=== PATIENT | female | born 1940 ===

== ENCOUNTER 2016-09-17 17:01 | Inpatient (IN) | payer MEDICARE, OTHER ==
[2016-09-17 17:01] VITALS: BMI 22.6
--- NOTE | 2016-09-17 17:19 | C.PDOC ---
History Of Present Illness The patient is a 76yo female, PMHx of stroke, [facility] ED from her [facility] for evaluation due to complaints of back pain from the patient for the past two days. Per pt's son, the patient fell two days ago after which she was complaining of back pain and was instructed by her PCP Dr. Rony Ramirez to come to the ED. Currently, the patient denies any back pain but is complaining of left lower jaw pain and swelling with associated difficulty in opening her mouth and chewing. Pt also reports some pain to her left eye and reports these are new symptoms. She currently denies any other medical complaints. PCP: Dr. Rony Ramirez Time Seen by Provider: 09/17/16 17:15 Chief Complaint (Nursing): Back Pain History Per: Patient, Atm Technician (Erin Bower) History/Exam Limitations: no limitations Onset/Duration Of Symptoms: Days Current Symptoms Are (Timing): Still Present Additional History Per: Shelter Past Medical History Reviewed: Historical Data, Nursing Documentation, Vital Signs Vital Signs: Last Vital Signs Temp 98 F 09/20/16 07:52 Pulse 81 09/20/16 12:34 Resp 20 09/20/16 07:52 BP 122/80 09/20/16 07:52 Pulse Ox 96 09/20/16 12:34 - Medical History PMH: Arthritis (NECK DJD), HTN Denies: Chronic Kidney Disease - [facility] Procedures FIBER-OPTIC BRONCHOSCOPY (07/16/13) OTHER LOBECTOMY OF LUNG (07/16/13) SIMP EXC LYMPH STRUC NEC (07/16/13) Family History: States: Unknown Family Hx - Social History Hx Tobacco Use: No Hx Alcohol Use: No Hx Substance Use: No - Immunization History Hx Tetanus Toxoid Vaccination: No Hx Influenza Vaccination: No Hx Pneumococcal Vaccination: Yes Review Of Systems Eyes: Positive for: Pain (left eye pain) ENT: Positive for: Other (Left sided jaw pain, swelling, difficulty in opening and closing mouth as well as chewing) Respiratory: Negative for: Cough, Shortness of Breath Gastrointestinal: Negative for: Nausea, Vomiting, Abdominal Pain, Diarrhea Genitourinary: Negative for: Dysuria Musculoskeletal: Negative for: Neck Pain Skin: Negative for: Rash Neurological: Negative for: Weakness Physical Exam - Physical Exam Skin: Normal Color Cardiovascular: Rhythm Regular Respiratory: Normal Breath Sounds Gastrointestinal/Abdominal: Normal Exam, Soft, No Tenderness Back: No CVA Tenderness Neurological/Psych: Normal Motor (able to move all extremities) Other Neurological Findings: Facial Palsy (Left sided facial droop) ED Course And Treatment - Laboratory Results Result Diagrams: 09/20/16 14:06 09/20/16 14:06 - CT Scan/US CT Head Other Rad Studies (CT/US): Read By Radiologist, Radiology Report Reviewed CT/US Interpretation: EXAM: CT Head Without Intravenous Contrast. CLINICAL HISTORY: 76 years old, female; Pain; Headache; Headache not specified; Additional info: R/O bleed. TECHNIQUE: Axial computed tomography images of the head/brain without intravenous contrast. All CT scans at. this facility use one or more dose reduction techniques, viz.: automated exposure control; ma/ kV. adjustment per patient size (including targeted exams where dose is matched to indication; i.e. head);. or iterative reconstruction technique. Coronal and sagittal reformatted images were created and reviewed. COMPARISON: CT - HEAD W/O CONTRAST 01/10/2015 10:42:23 AM. FINDINGS: Brain: There is marked diffuse cerebral atrophy present, consistent with this patient's age. There is. moderate diffuse heterogeneity of the white matter attenuation, consistent with chronic white matter. ischemic changes. The brain is otherwise unremarkable. Normal dorantes-white matter differentiation is. present, without acute hemorrhage, or mass. Ventricles: Unremarkable. No ventriculomegaly. Bones/joints: Unremarkable. No acute fracture. Soft tissues: Unremarkable. Sinuses: Unremarkable as visualized, except for minimal fluid in the posterior left ethmoid air cells. No acute sinusitis. Mastoid air cells: Unremarkable as visualized. No mastoid effusion. IMPRESSION: Age-related atrophy and chronic white matter ischemic changes, with no evidence of an acute. intracranial abnormality. CT Maxillofacial/Sinuses Other Rad Studies (CT/US): Read By Radiologist, Radiology Report Reviewed CT/US Interpretation: EXAM: CT Maxillofacial Without Intravenous Contrast. CLINICAL HISTORY: 76 years old, female; Pain; Jaw pain; Additional info: Jaw pain, diff opening mouth. TECHNIQUE: Axial computed tomography images of the face without intravenous contrast. All CT scans at this. facility use one or more dose reduction techniques, viz.: automated exposure control; ma/kV. adjustment per patient size (including targeted exams where dose is matched to indication; i.e. head);. or iterative reconstruction technique. Coronal and sagittal reformatted images were created and reviewed. COMPARISON: CT - HEAD W /O CONTRAST 01/10/2015 10:42:23 AM. FINDINGS: Bones/joints: There is moderate bilateral TMJ arthropathy present, no TMJ dislocation. No. mandibular lesions. No acute fracture. Soft tissues: Unremarkable. Orbits: The orbits are normal. Sinuses: There is minimal fluid in one of the posterior left ethmoids. Dental : There is extensive periodontal disease seen with a number of missing teeth and significant. dental caries. Brain: The visualized brain shows marked cerebral atrophy. IMPRESSION: Extensive periodontal disease and dental caries. Moderate bilateral TMJ arthropathy. No fracture or. dislocation seen. Mild sinus disease as described. Medical Decision Making Medical Decision Making: Time: 1720 Impression: 76yo female, complaining of left jaw pain and swelling; hx of stroke Differentials: Palsy, stroke, trauma, infection Plan: -- CT Head -- CT Maxillofacial -- Labs -- CXR -- Tylenol 975 mg PO Disposition - Disposition Disposition: HOSPITALIZED Disposition Time: 17:25 Condition: GUARDED - Clinical Impression Clinical Impression: Chronic jaw pain - Scribe Statement The provider has reviewed the documentation as recorded by the Erin Bower Provider Attestation: All medical record entries made by the Erin were at my direction and personally dictated by me. I have reviewed the chart and agree that the record accurately reflects my personal performance of the history, physical exam, medical decision making, and the department course for this patient. I have also personally directed, reviewed, and agree with the discharge instructions and disposition.
[2016-09-17 19:12] LABS: BASO # 0.1 K/uL (0.0-0.2); BASO % 0.5 % (0.0-2.0); EOS # 0.3 K/uL (0.0-0.7); EOS % 2.3 % (0.0-4.0); HEMATOCRIT 42.5 % (34.0-47.0); LYMPH # 3.9 K/uL (1.0-4.3); LYMPH % 32.4 % (20.0-40.0); MEAN CELL VOLUME 82.2 fL (81.0-99.0); MEAN CORPUSCULAR HEMOGLOBIN 27.4 pg (27.0-31.0); MEAN CORPUSCULAR HGB CONC 33.4 g/dL (33.0-37.0); MEAN PLATELET VOLUME 7.6 fL (7.2-11.7); MONO # 0.9 K/uL (0.0-0.8); MONO % 7.3 % (0.0-10.0); NRBC % 0.1 % (0.0-2.0); RED CELL DISTRIBUTION WIDTH 16.1 % (11.5-14.5)
[2016-09-17 19:20] LABS: CHLORIDE 99 mmol/L (98-107); SODIUM 139 mmol/L (132-148)
[2016-09-17 19:21] LABS: POTASSIUM 4.2 mmol/L (3.6-5.2)
[2016-09-17 19:23] LABS: AST/SGOT 24 U/L (14-36); BILIRUBIN,TOTAL 0.5 mg/dL (0.2-1.3); BLOOD UREA NITROGEN 9 mg/dL (7-17); CARBON DIOXIDE 25 mmol/L (22-30); GFR AFRICAN-AMERICAN > 60; TOTAL PROTEIN 8.1 g/dL (6.3-8.3)
[2016-09-17 19:24] LABS: ALKALINE PHOSPHATASE 113 U/L (38-126); ALT/SGPT 27 U/L (9-52); CALCIUM 10.1 mg/dl (8.6-10.4); GLUCOSE,RANDOM 96 mg/dL (65-105)
--- NOTE | 2016-09-18 09:51 | CP.PCM.HP ---
Past Patient History - Infectious Disease Hx of Infectious Diseases: None - Past Medical History & Family History Past Medical History?: Yes - Past Social History Smoking Status: Never Smoked - CARDIAC Hx Hypertension: Yes - PULMONARY Hx Respiratory Disorders: Yes Hx Lung Cancer: Yes - NEUROLOGICAL Hx Neurological Disorder: Yes HX Cerebrovascular Accident: Yes - HEENT Hx HEENT Problems: Yes Hx Cataracts: Yes (EXT RIGHT EYE IOL) - RENAL Hx Chronic Kidney Disease: No - ENDOCRINE/METABOLIC Hx Endocrine Disorders: No - HEMATOLOGICAL/ONCOLOGICAL Hx Blood Disorders: Yes Hx Cancer: Yes (lung) - INTEGUMENTARY Hx Dermatological Problems: No - MUSCULOSKELETAL/RHEUMATOLOGICAL Hx Arthritis: Yes (NECK DJD) Hx Falls: Yes (hx. of fall from home) - GASTROINTESTINAL Hx Gastrointestinal Disorders: Yes Hx Gastroesophageal Reflux: Yes - GENITOURINARY/GYNECOLOGICAL Hx Genitourinary Disorders: Yes Hx Urinary Tract Infection: Yes - PSYCHIATRIC Hx Substance Use: No - SURGICAL HISTORY Hx Surgeries: Yes Hx Cataract Extraction: Yes (RIGHT IOL) Other/Comment: LUNG BX - ANESTHESIA Hx Anesthesia: Yes Hx Anesthesia Reactions: Yes Hx Malignant Hyperthermia: No Meds Allergies/Adverse Reactions: Allergies Allergy/AdvReac Type Severity Reaction Status Date / Time No Known Allergies Allergy Verified 09/17/16 17:08 Physical Exam - Constitutional Appears: Well - Head Exam Head Exam: ATRAUMATIC, NORMAL INSPECTION, NORMOCEPHALIC - Eye Exam Eye Exam: EOMI, Normal appearance, PERRL - ENT Exam ENT Exam: Mucous Membranes Moist, Normal Exam - Neck Exam Neck exam: Positive for: Normal Inspection - Respiratory Exam Respiratory Exam: Decreased Breath Sounds - Cardiovascular Exam Cardiovascular Exam: REGULAR RHYTHM, +S1, +S2 - GI/Abdominal Exam GI & Abdominal Exam: Diminished Bowel Sounds, Soft - Rectal Exam Rectal Exam: Deferred Results - Vital Signs Recent Vital Signs: Last Vital Signs Temp 97.5 F L 09/17/16 23:28 Pulse 68 09/17/16 23:28 Resp 20 09/17/16 23:28 BP 137/78 09/17/16 23:28 Pulse Ox 98 09/17/16 23:28 - Labs Result Diagrams: 09/17/16 19:08 09/17/16 19:08 Labs: Laboratory Results - last 24 hr 09/17/16 09/17/16 19:08 19:08 WBC 12.0 H RBC 5.16 Hgb 14.2 Hct 42.5 MCV 82.2 D MCH 27.4 MCHC 33.4 RDW 16.1 H Plt Count 388 MPV 7.6 Neut % (Auto) 57.5 Lymph % (Auto) 32.4 Ramsey % (Auto) 7.3 Eos % (Auto) 2.3 Baso % (Auto) 0.5 Neut # 6.9 Lymph # 3.9 Ramsey # 0.9 H Eos # 0.3 Baso # 0.1 Sodium 139 Potassium 4.2 Chloride 99 Carbon Dioxide 25 Anion Gap 19 BUN 9 Creatinine 0.4 L Est GFR ( Amer) > 60 Est GFR (Non-Af Amer) > 60 Random Glucose 96 Calcium 10.1 Total Bilirubin 0.5 AST 24 ALT 27 Alkaline Phosphatase 113 Total Protein 8.1 Albumin 4.1 Globulin 4.1 H Albumin/Globulin Ratio 1.0
[2016-09-18] MEDS ORDERED: Amoxicillin-Clav 875-125 mg Tab PO SCH (10:00)
[2016-09-18] MEDS ORDERED: Pneumococcal 23-Valent Vaccine IM ONE (10:00)
[2016-09-18] MEDS: guaiFENesin DM 200 mg-20 mg/10 ml UD PO PRN (10:29)
[2016-09-18] MEDS: Multiple Vitamins Tab PO SCH (10:29)
--- NOTE | 2016-09-18 10:43 | RAD ---
PROCEDURE: CHEST RADIOGRAPH, 1 VIEW HISTORY: SOB COMPARISON: Comparison is made to 02/25/2016 FINDINGS: LUNGS: Complete whiteout of the left lung noted since the previous exam. There is mediastinal shift to the left. PLEURA: No evidence of right pleural effusion. CARDIOVASCULAR: Mediastinal and cardiac shift to the left is noted. Cannot evaluate the cardiac size. OSSEOUS STRUCTURES: No significant abnormalities. VISUALIZED UPPER ABDOMEN: Normal. OTHER FINDINGS: None. IMPRESSION: Complete whiteout of the left chest could be due to complete collapse of the left lung. Findings in new compared to the previous exam. Further assessment by CT is suggested.
--- NOTE | 2016-09-18 11:14 | CT ---
PROCEDURE: CT HEAD WITHOUT CONTRAST. HISTORY: R/O Bleed COMPARISON: Comparison is made to 02/25/2016 TECHNIQUE: Axial computed tomography images were obtained through the head/brain without intravenous contrast. Radiation dose: Total exam DLP = 602.5 mGy-cm. This CT exam was performed using one or more of the following dose reduction techniques: Automated exposure control, adjustment of the mA and/or kV according to patient size, and/or use of iterative reconstruction technique. FINDINGS: HEMORRHAGE: No intracranial hemorrhage. BRAIN: No mass effect or edema. No atrophy or chronic microvascular ischemic changes. VENTRICLES: Unremarkable. No hydrocephalus. CALVARIUM: Unremarkable. PARANASAL SINUSES: Unremarkable as visualized. No significant inflammatory changes. MASTOID AIR CELLS: Unremarkable as visualized. No inflammatory changes. OTHER FINDINGS: None. IMPRESSION: No evidence of acute intracranial hemorrhage intracranial collection mass effect or midline shift. Atrophy and white matter changes. Preliminary report support was submitted by [facility].
--- NOTE | 2016-09-18 11:35 | CT ---
PROCEDURE: CT MAXILLOFACIAL BONES WITHOUT CONTRAST HISTORY: jaw pain, diff opening mouth COMPARISON: None TECHNIQUE: Contiguous axial CT images of the maxillofacial bones were obtained. Coronal and sagittal reformats were generated. Radiation dose: Total exam DLP = 672.04 mGy-cm. This CT exam was performed using one or more of the following dose reduction techniques: Automated exposure control, adjustment of the mA and/or kV according to patient size, and/or use of iterative reconstruction technique. FINDINGS: NASAL BONES: Unremarkable. ORBITS: Unremarkable. PARANASAL SINUSES/ MASTOIDS: Mild mucosal thickening seen in the ethmoid and sphenoid sinuses. MAXILLA: Unremarkable. MANDIBLE/ TEMPOROMANDIBULAR JOINTS: Arthritic degenerative changes at the TMJ bilaterally SKULL BASE: Unremarkable. TEMPORAL BONES: Middle ears and mastoid grossly unremarkable. OTHER FINDINGS: Extensive periodontal disease and dental cares IMPRESSION: No evidence of acute fracture or dislocation. Arthritic degenerative changes at the TMJ. Preliminary report was submitted by [facility]
[2016-09-19] MEDS ORDERED: Amoxicillin-Clav 875-125 mg Tab PO SCH (10:00)
--- NOTE | 2016-09-19 12:57 | CP.PCM.PN ---
Subjective - Date & Time of Evaluation Date of Evaluation: 09/19/16 Time of Evaluation: 08:40 - Subjective Subjective: clinically same Objective - Vital Signs/Intake and Output Vital Signs (last 24 hours): Temp Pulse Resp BP Pulse Ox 98.3 F 86 20 122/73 96 09/19/16 01:00 09/19/16 01:00 09/19/16 01:00 09/19/16 01:00 09/19/16 01:00 Intake and Output: 09/19/16 09/19/16 06:59 18:59 Intake Total 100 100 Balance 100 100 - Medications Medications: Current Medications Acetaminophen (Tylenol 325mg Tab) 650 mg PO Q4 PRN PRN Reason: Pain, Mild (1-3) Last Admin: 09/18/16 17:26 Dose: 650 mg Amoxicillin/Clavulanate Potassium (Augmentin 875 Mg-125 Mg Tab) 1 tab PO QAM [facility] Carvedilol (Coreg) 6.25 mg PO BID [facility] Last Admin: 09/18/16 17:26 Dose: 6.25 mg Docusate Sodium (Colace) 200 mg PO HS [facility] Last Admin: 09/18/16 21:48 Dose: Not Given Guaifenesin/Dextromethorphan (Robitussin Dm) 10 ml PO Q12 PRN PRN Reason: Cough Last Admin: 09/18/16 10:29 Dose: 10 ml Heparin Sodium (Porcine) (Heparin) 5,000 units SC Q8 [facility] Last Admin: 09/19/16 06:35 Dose: 5,000 units Multivitamins (Hexavitamin) 1 tab PO DAILY [facility] Last Admin: 09/18/16 10:29 Dose: 1 tab - Labs Labs: 09/17/16 19:08 09/17/16 19:08 - Constitutional Appears: Well - Head Exam Head Exam: ATRAUMATIC, NORMAL INSPECTION, NORMOCEPHALIC - Eye Exam Eye Exam: EOMI, Normal appearance, PERRL Pupil Exam: NORMAL ACCOMODATION, PERRL - ENT Exam ENT Exam: Mucous Membranes Moist, Normal Exam - Neck Exam Neck Exam: Full ROM, Normal Inspection. absent: Lymphadenopathy - Respiratory Exam Respiratory Exam: Decreased Breath Sounds - Cardiovascular Exam Cardiovascular Exam: REGULAR RHYTHM, +S1, +S2 - GI/Abdominal Exam GI & Abdominal Exam: Soft, Diminished Bowel Sounds - Rectal Exam Rectal Exam: Deferred Assessment and Plan - Assessment and Plan (Free Text) Plan: Continue same pain medicine and discussed with by HEENT unable to figure out the cause of the lobule but nothing much on on the bed on the pharyngeal area Continue same Continue pain medicine Medication as ordered Awaiting consult by Dr. Aj aviles
[2016-09-19] MEDS: Multiple Vitamins Tab PO SCH (13:32)
--- NOTE | 2016-09-19 15:22 | CON ---
DATE: 09/19/2016 CHIEF COMPLAINT: Right-sided jaw pain and right facial numbness as well as chronic back pain. HISTORY OF PRESENT ILLNESS: This is a 76-year-old woman with history of hypertension, dyslipidemia, history of arthritis who presented to the hospital with jaw pain and difficulty opening her mouth and chewing and some paresthesia on her face. CAT scan of the head showed no acute intracranial abnormalities. Maxillofacial CAT scan showed arthritic changes at the TMJ but no evidence of any acute fracture or dislocation. A dental consult has been called since she has very poor dental hygiene and decay. She also complains of low back pain occasionally radiating down the legs without any paresthesias, but moves all extremities equally. No acute events overnight. PAST MEDICAL HISTORY: History of hypertension, arthritis, hyperlipidemia. FAMILY HISTORY: Noncontributory. SOCIAL HISTORY: No illicit drug use, smoking or EtOH abuse. REVIEW OF SYSTEMS: A 14-point review of system is negative except as in the HPI. MEDICATIONS: Reviewed by nurse practitioner, see med reconciliation sheet. PHYSICAL EXAMINATION GENERAL: The patient seen sitting up in bed. In no acute distress. VITAL SIGNS: Temperature 98.3, pulse rate 86, blood pressure 122/73, respiratory rate 20, oxygen saturation 96% by room air. HEENT: Atraumatic, normocephalic. PERRLA. Extraocular muscles are intact. NECK: Supple. No JVD. No adenopathy noted. LUNGS: Clear to auscultation. No adventitious sounds. HEART: S1 and S2. Normal rate and rhythm. No murmur, rubs, or gallops. ABDOMEN: Soft, nontender, nondistended. Bowel sounds are present. EXTREMITIES: No clubbing. No cyanosis. Peripheral pulses are 2+ bilaterally. NEUROLOGIC: The patient is alert and oriented to person, place, month and year. Recall after 5 minutes 0 out of 3. Poor attention. Slow thought process. Speech is hypophonic but no fusion noted. Motor exam; slight increased tone throughout. Moves all extremities equally. Right lower extremity cannot do a lift up due to low back pain. Sensory exam: Light touch, pinprick, proprioception and vibration are intact. Decreased vibration of the toes. DTRs are 1+ throughout. Co-ordination of [id number] intact. Gait deferred for now. LABORATORY DATA: Sodium is 139, potassium 4.2, chloride 99, carbon dioxide is 25, BUN is 9, creatinine 0.4, random glucose 96. ASSESSMENT AND PLAN: A 76-year-old woman with hypertension, arthritis, dyslipidemia who presented with jaw pain associated with left facial numbness. CAT scan of the head and CAT scan of the maxillofacial area showed no acute intracranial abnormality, extensive periodontal disease and dental caries and moderate bilateral temporomandibular joint arthropathy. The jaw pain does not seem to be any form of temporal arteritis, it seems more likely arthritic of temporomandibular joint versus dental decay. There is no facial droop seen. No focal or neurological deficits seen on examination. At this time, her low back pain is likely secondary to degenerative arthritis throughout her lumbosacral levels. At this time will benefit from physical therapy and we will get a CAT scan of lumbosacral spine to make sure there is no acute fracture and will need PT/OT. I recommend gabapentin 100 mg p.o. at bedtime for neuropathic pain relief. Continue current present medical management. Thank you for this consult. She should be on aspirin 81 mg for stroke prevention. Alexandre Sams MD
--- NOTE | 2016-09-19 16:13 | CT ---
PROCEDURE: CT scan lumbar spine dated 09/19/2016 HISTORY: Low back pain COMPARISON: No comparison made with CT scan abdomen pelvis 08/16/2011 which imaged the lumbar spine in 3 planes. Comparison also made with plain film radiographs lumbar spine 01/15/2014 TECHNIQUE: Contiguous helical/transaxial computed tomography images were obtained of the lumbar spine without the use of intravenous contrast. Coronal and sagittal reformatted images were created and reviewed. Radiation dose: Total exam DLP = 636.92 mGy-cm. This CT exam was performed using one or more of the following dose reduction techniques: Automated exposure control, adjustment of the mA and/or kV according to patient size, and/or use of iterative reconstruction technique. . FINDINGS: VERTEBRAE: Current study re- demonstrates bilateral spondylolysis at the L5 level with an approximately grade 1 spondylolisthesis unchanged in overall appearance from prior plain film radiographs and CT scan of the abdomen and pelvis. . There is associated marked narrowing of the posterior at disc space margin with uncovering of the posterior superior surface of the disc with mild broad-based bulge of the posterior annulus that extends into the proximal inferior margins of both exit foramina. The facet joints are hypertrophic. Heterotopic bone changes surrounding the pars defects bilaterally. Changes result in typical widening of the AP diameter of the canal and significant bilateral foraminal stenosis. At the L4-L5 level, there is minor posterior disc space narrowing. Small broad-based disc bulge extends into the proximal inferior margins of both exit foramina. . The disc results in some mild flattening of the ventral surface of the thecal sac however the overall central canal appears adequate. Facets are mildly hypertrophic. Exit foramina appear adequate as well. Similar changes seen at the L3-L4 and to a lesser degree L2-L3 levels. No acute compression fracture nor retropulsed fragments. Very minor levoscoliosis of the lumbar spine. Sclerotic changes both SI joints left greater than right. Questionable vascular calcification versus tiny calcified granuloma within the splenic parenchyma Additional findings of sigmoid diverticulosis present. . Note also made of what is felt to represent a small partially exophytic cyst arising from the posterior inferior aspect left kidney. Urinary bladder wall slightly thickened which could be due to incomplete distention however cystitis not excluded Impression: Bilateral pars interarticularis defects with approximately grade 1 spondylolisthesis L5-S1 level. . Note that a voice message left at 3:52 pm 09/19/[address] Sams's cell phone to discuss findings See above discussion for additional details and findings. .
--- NOTE | 2016-09-19 19:55 | OP ---
PROCEDURE DATE: 09/19/2016 PREOPERATIVE DIAGNOSIS: Dysphagia. POSTOPERATIVE DIAGNOSIS: Dysphagia. PROCEDURE: Flexible laryngoscopy. SIGNIFICANT FINDINGS: Mild arytenoid erythema. PROCEDURE: The patient was placed in a supine position. The flexible laryngoscopy was inserted into the nasal cavity. It was passed to the nasopharynx, oropharynx, hypopharynx. The base of tongue, vallecula, epiglottis, false vocal cord, true cords, piriform sinuses were brought into view as well as the pharyngeal layne. No masses or lesions were noted. Mild erythema was noted on the arytenoids. The scope was removed. The patient tolerated the procedure. Walter Dixon MD MTDD
[2016-09-20] MEDS: Multiple Vitamins Tab PO SCH (09:37)
[2016-09-20 14:19] LABS: BASO # 0.1 K/uL (0.0-0.2); BASO % 0.6 % (0.0-2.0); EOS # 0.2 K/uL (0.0-0.7); EOS % 1.5 % (0.0-4.0); HEMATOCRIT 39.8 % (34.0-47.0); LYMPH # 3.4 K/uL (1.0-4.3); LYMPH % 30.5 % (20.0-40.0); MEAN CELL VOLUME 80.9 fL (81.0-99.0); MEAN CORPUSCULAR HEMOGLOBIN 27.5 pg (27.0-31.0); MEAN PLATELET VOLUME 7.1 fL (7.2-11.7); MONO # 0.7 K/uL (0.0-0.8); RED CELL DISTRIBUTION WIDTH 15.6 % (11.5-14.5); WHITE BLOOD COUNT 11.1 K/uL (4.8-10.8)
[2016-09-20 14:29] LABS: CHLORIDE 97 mmol/L (98-107); POTASSIUM 4.1 mmol/L (3.6-5.2); SODIUM 135 mmol/L (132-148)
[2016-09-20 14:32] LABS: ALKALINE PHOSPHATASE 87 U/L (38-126); ALT/SGPT 31 U/L (9-52); AST/SGOT 29 U/L (14-36); BILIRUBIN,TOTAL 0.4 mg/dL (0.2-1.3); BLOOD UREA NITROGEN 12 mg/dL (7-17); CARBON DIOXIDE 25 mmol/L (22-30); GFR AFRICAN-AMERICAN > 60; GLUCOSE,RANDOM 153 mg/dL (65-105); TOTAL PROTEIN 7.4 g/dL (6.3-8.3)
[2016-09-20 14:33] LABS: CALCIUM 9.9 mg/dl (8.6-10.4)
--- NOTE | 2016-09-20 16:47 | CP.PCM.PN ---
Subjective - Date & Time of Evaluation Date of Evaluation: 09/20/16 Time of Evaluation: 08:40 - Subjective Subjective: clinically same Objective - Vital Signs/Intake and Output Vital Signs (last 24 hours): Temp Pulse Resp BP Pulse Ox 98.7 F 87 20 144/79 95 09/20/16 15:00 09/20/16 15:00 09/20/16 15:00 09/20/16 15:00 09/20/16 15:00 - Medications Medications: Current Medications Acetaminophen (Tylenol 325mg Tab) 650 mg PO Q4 PRN PRN Reason: Pain, Mild (1-3) Last Admin: 09/20/16 16:31 Dose: 650 mg Carvedilol (Coreg) 6.25 mg PO BID [facility] Last Admin: 09/20/16 09:37 Dose: 6.25 mg Docusate Sodium (Colace) 200 mg PO HS [facility] Last Admin: 09/19/16 21:37 Dose: 200 mg Gabapentin (Neurontin) 100 mg PO [facility] Last Admin: 09/19/16 21:37 Dose: 100 mg Guaifenesin/Dextromethorphan (Robitussin Dm) 10 ml PO Q12 PRN PRN Reason: Cough Last Admin: 09/18/16 10:29 Dose: 10 ml Heparin Sodium (Porcine) (Heparin) 5,000 units SC Q8 [facility] Last Admin: 09/20/16 14:04 Dose: 5,000 units Multivitamins (Hexavitamin) 1 tab PO DAILY [facility] Last Admin: 09/20/16 09:37 Dose: 1 tab - Constitutional Appears: Well - Head Exam Head Exam: ATRAUMATIC, NORMAL INSPECTION, NORMOCEPHALIC - Eye Exam Eye Exam: EOMI, Normal appearance, PERRL Pupil Exam: NORMAL ACCOMODATION, PERRL - ENT Exam ENT Exam: Mucous Membranes Moist, Normal Exam - Neck Exam Neck Exam: Full ROM, Normal Inspection. absent: Lymphadenopathy - Respiratory Exam Respiratory Exam: Decreased Breath Sounds - Cardiovascular Exam Cardiovascular Exam: REGULAR RHYTHM, +S1, +S2 - GI/Abdominal Exam GI & Abdominal Exam: Soft, Diminished Bowel Sounds - Rectal Exam Rectal Exam: Deferred
[2016-09-21 07:22] LABS: BASO % 0.5 % (0.0-2.0); EOS # 0.2 K/uL (0.0-0.7); EOS % 2.2 % (0.0-4.0); LYMPH # 3.1 K/uL (1.0-4.3); LYMPH % 33.6 % (20.0-40.0); MEAN CELL VOLUME 81.8 fL (81.0-99.0); MEAN CORPUSCULAR HEMOGLOBIN 27.3 pg (27.0-31.0); MEAN CORPUSCULAR HGB CONC 33.4 g/dL (33.0-37.0); MEAN PLATELET VOLUME 7.2 fL (7.2-11.7); MONO # 0.8 K/uL (0.0-0.8); MONO % 8.4 % (0.0-10.0); NRBC % 0.1 % (0.0-2.0); RED CELL DISTRIBUTION WIDTH 15.9 % (11.5-14.5); WHITE BLOOD COUNT 9.2 K/uL (4.8-10.8)
[2016-09-21 07:24] LABS: CHLORIDE 98 mmol/L (98-107)
[2016-09-21 07:25] LABS: POTASSIUM 4.2 mmol/L (3.6-5.2); SODIUM 134 mmol/L (132-148)
[2016-09-21 07:27] LABS: BILIRUBIN,TOTAL 0.6 mg/dL (0.2-1.3); GFR AFRICAN-AMERICAN > 60
[2016-09-21 07:28] LABS: ALKALINE PHOSPHATASE 88 U/L (38-126); ALT/SGPT 28 U/L (9-52); AST/SGOT 30 U/L (14-36); BLOOD UREA NITROGEN 9 mg/dL (7-17); CALCIUM 9.3 mg/dl (8.6-10.4); CARBON DIOXIDE 26 mmol/L (22-30); GLUCOSE,RANDOM 107 mg/dL (65-105); TOTAL PROTEIN 7.3 g/dL (6.3-8.3)
[2016-09-21] MEDS: Multiple Vitamins Tab PO SCH (10:13)
--- NOTE | 2016-09-21 13:38 | CP.PCM.PN ---
Subjective - Date & Time of Evaluation Date of Evaluation: 09/21/16 Time of Evaluation: 08:20 - Subjective Subjective: clinically same Objective - Vital Signs/Intake and Output Vital Signs (last 24 hours): Temp Pulse Resp BP Pulse Ox 98.2 F 80 20 113/67 96 09/21/16 08:46 09/21/16 08:46 09/21/16 08:46 09/21/16 08:46 09/21/16 08:46 Intake and Output: 09/21/16 09/21/16 06:59 18:59 Intake Total 240 100 Output Total 250 Balance 240 -150 - Medications Medications: Current Medications Acetaminophen (Tylenol 325mg Tab) 650 mg PO Q4 PRN PRN Reason: Pain, Mild (1-3) Last Admin: 09/20/16 16:31 Dose: 650 mg Carvedilol (Coreg) 6.25 mg PO BID [facility] Last Admin: 09/21/16 10:13 Dose: 6.25 mg Docusate Sodium (Colace) 200 mg PO [facility] Last Admin: 09/20/16 21:49 Dose: 200 mg Gabapentin (Neurontin) 100 mg PO [facility] Last Admin: 09/20/16 21:49 Dose: 100 mg Guaifenesin/Dextromethorphan (Robitussin Dm) 10 ml PO Q12 PRN PRN Reason: Cough Last Admin: 09/18/16 10:29 Dose: 10 ml Heparin Sodium (Porcine) (Heparin) 5,000 units SC Q8 [facility] Multivitamins (Hexavitamin) 1 tab PO DAILY [facility] Last Admin: 09/21/16 10:13 Dose: 1 tab - Labs Labs: 09/21/16 07:05 09/21/16 07:05 - Constitutional Appears: Well - Head Exam Head Exam: ATRAUMATIC, NORMAL INSPECTION, NORMOCEPHALIC - Eye Exam Eye Exam: EOMI, Normal appearance, PERRL Pupil Exam: NORMAL ACCOMODATION, PERRL - ENT Exam ENT Exam: Mucous Membranes Moist, Normal Exam - Neck Exam Neck Exam: Full ROM, Normal Inspection. absent: Lymphadenopathy - Respiratory Exam Respiratory Exam: Decreased Breath Sounds - Cardiovascular Exam Cardiovascular Exam: REGULAR RHYTHM, +S1, +S2 - GI/Abdominal Exam GI & Abdominal Exam: Soft, Diminished Bowel Sounds - Rectal Exam Rectal Exam: Deferred
[2016-09-22 07:47] VITALS: RESP 20
[2016-09-22] MEDS: Multiple Vitamins Tab PO SCH (09:37)
--- NOTE | 2016-09-22 16:28 | CP.PCM.PN ---
Subjective - Date & Time of Evaluation Date of Evaluation: 09/22/16 Time of Evaluation: 07:40 - Subjective Subjective: clinically same Objective - Vital Signs/Intake and Output Vital Signs (last 24 hours): Temp Pulse Resp BP Pulse Ox 97.2 F L 75 20 144/80 95 09/22/16 07:47 09/22/16 07:47 09/22/16 07:47 09/22/16 07:47 09/22/16 07:47 Intake and Output: 09/22/16 09/22/16 06:59 18:59 Intake Total 460 400 Balance 460 400 - Medications Medications: Current Medications Acetaminophen (Tylenol 325mg Tab) 650 mg PO Q4 PRN PRN Reason: Pain, Mild (1-3) Last Admin: 09/20/16 16:31 Dose: 650 mg Carvedilol (Coreg) 6.25 mg PO BID [facility] Last Admin: 09/22/16 09:37 Dose: 6.25 mg Docusate Sodium (Colace) 200 mg PO [facility] Last Admin: 09/21/16 21:19 Dose: 200 mg Gabapentin (Neurontin) 100 mg PO [facility] Last Admin: 09/21/16 21:19 Dose: 100 mg Guaifenesin/Dextromethorphan (Robitussin Dm) 10 ml PO Q12 PRN PRN Reason: Cough Last Admin: 09/18/16 10:29 Dose: 10 ml Heparin Sodium (Porcine) (Heparin) 5,000 units SC Q8 [facility] Last Admin: 09/22/16 13:57 Dose: 5,000 units Multivitamins (Hexavitamin) 1 tab PO DAILY [facility] Last Admin: 09/22/16 09:37 Dose: 1 tab - Labs Labs: 09/21/16 07:05 09/21/16 07:05 - Constitutional Appears: Well - Head Exam Head Exam: ATRAUMATIC, NORMAL INSPECTION, NORMOCEPHALIC - Eye Exam Eye Exam: EOMI, Normal appearance, PERRL Pupil Exam: NORMAL ACCOMODATION, PERRL - ENT Exam ENT Exam: Mucous Membranes Moist, Normal Exam - Neck Exam Neck Exam: Full ROM, Normal Inspection. absent: Lymphadenopathy - Respiratory Exam Respiratory Exam: Decreased Breath Sounds - Cardiovascular Exam Cardiovascular Exam: REGULAR RHYTHM, +S1, +S2 - GI/Abdominal Exam GI & Abdominal Exam: Soft, Diminished Bowel Sounds - Rectal Exam Rectal Exam: Deferred
[2016-09-22] MEDS: guaiFENesin DM 200 mg-20 mg/10 ml UD PO PRN (18:22)
[2016-09-23 08:20] VITALS: BP 144/85; PULSE 82; TEMP 97.7; O2SAT 96
[2016-09-23] MEDS: Multiple Vitamins Tab PO SCH (10:17)
[2016-09-23 14:20] LABS: BASO # 0.1 K/uL (0.0-0.2); BASO % 0.5 % (0.0-2.0); EOS # 0.2 K/uL (0.0-0.7); EOS % 2.3 % (0.0-4.0); HEMATOCRIT 41.2 % (34.0-47.0); LYMPH # 3.6 K/uL (1.0-4.3); LYMPH % 33.4 % (20.0-40.0); MEAN CELL VOLUME 82.6 fL (81.0-99.0); MEAN CORPUSCULAR HEMOGLOBIN 26.5 pg (27.0-31.0); MEAN CORPUSCULAR HGB CONC 32.1 g/dL (33.0-37.0); MEAN PLATELET VOLUME 6.8 fL (7.2-11.7); MONO # 0.8 K/uL (0.0-0.8); MONO % 7.3 % (0.0-10.0); RED CELL DISTRIBUTION WIDTH 15.5 % (11.5-14.5); WHITE BLOOD COUNT 10.7 K/uL (4.8-10.8)
[2016-09-23 14:27] LABS: CHLORIDE 99 mmol/L (98-107)
[2016-09-23 14:28] LABS: POTASSIUM 4.2 mmol/L (3.6-5.2); SODIUM 136 mmol/L (132-148)
[2016-09-23 14:30] LABS: AST/SGOT 37 U/L (14-36); BILIRUBIN,TOTAL 0.5 mg/dL (0.2-1.3); BLOOD UREA NITROGEN 8 mg/dL (7-17); CARBON DIOXIDE 24 mmol/L (22-30); GFR AFRICAN-AMERICAN > 60; TOTAL PROTEIN 7.3 g/dL (6.3-8.3)
[2016-09-23 14:31] LABS: ALKALINE PHOSPHATASE 92 U/L (38-126); ALT/SGPT 42 U/L (9-52); CALCIUM 9.7 mg/dl (8.6-10.4); GLUCOSE,RANDOM 109 mg/dL (65-105)
--- NOTE | 2016-09-23 16:25 | CP.PCM.PN ---
Subjective - Date & Time of Evaluation Date of Evaluation: 09/23/16 Time of Evaluation: 11:00 - Subjective Subjective: awake, alert, left cheek with pain. Objective - Vital Signs/Intake and Output Vital Signs (last 24 hours): Temp Pulse Resp BP Pulse Ox 97.7 F 82 20 144/85 96 09/23/16 07:00 09/23/16 07:00 09/23/16 07:00 09/23/16 07:00 09/23/16 07:00 Intake and Output: 09/23/16 09/23/16 06:59 18:59 Intake Total 360 Balance 360 - Labs Labs: 09/23/16 14:12 09/23/16 14:12 Assessment and Plan - Assessment and Plan (Free Text) Assessment: Patient is seen and examined. Awake, responsive, has pain on the left cheek, tolerating pureed diet. D/W DR Silke Ramirez, plan to discharge back to [facility] for rehab. Son verbalized understanding of the instructions given. Advised for dental consult at the rehab for possible dental decay.
--- NOTE | 2016-09-27 17:43 | CARD ---
APPROVED REPORT EKG Measurement Heart [id number] <Conclusion> Sinus rhythm with 1st degree AV block Indeterminate axis Pulmonary disease pattern Septal infarct, age undetermined Abnormal ECG
--- NOTE | 2016-09-27 20:08 | CARD ---
APPROVED REPORT EKG Measurement Heart [id number] <Conclusion> Sinus rhythm with 1st degree AV block Low voltage QRS Anterolateral infarct, age undetermined Abnormal ECG
== END 2016-09-23 14:30 | DRG 603 ==
LOC: C.ER 17:01 → C.9E 18:48 → C.3T 20:55 → OBSVTOIN 09-20 16:39 → C.3T 09-21 13:27
PROVIDERS: ADMIT Internal Medicine Nephrology; ATTEND Internal Medicine Nephrology
PROC: 0CJS8ZZ Inspection of Larynx, Via Natural or Artificial Opening Endoscopic (ICD-10-PCS; principal; 2016-09-19)
DX: L03.211 Cellulitis of face (principal); R13.10 Dysphagia, unspecified; I10 Essential (primary) hypertension; K02.9 Dental caries, unspecified; M47.817 Spondylosis without myelopathy or radiculopathy, lumbosacral region; K05.6 Periodontal disease, unspecified; E78.5 Hyperlipidemia, unspecified; G89.29 Other chronic pain; K21.9 Gastro-esophageal reflux disease without esophagitis; Z87.440 Personal history of urinary (tract) infections; Z86.73 Personal history of transient ischemic attack (TIA), and cerebral infarction without residual deficits; Z85.118 Personal history of other malignant neoplasm of bronchus and lung

== ENCOUNTER 2016-09-24 18:07 | Inpatient (IN) | payer MEDICARE, OTHER ==
[2016-09-24 18:08] VITALS: BMI 22.6
--- NOTE | 2016-09-24 18:44 | C.PDOC ---
History Of Present Illness 76 year old female was brought to the ED by EMS accompanied by family with complaints of new onset of intermittent vision loss and slurred speech beginning this morning. Patient is status post discharge from [facility] for TIA and neck swelling yesterday. As per family, patient is usually interactive, alert, and talkative. Patient notes occasional complete blindness that "comes back." Family states they are having trouble understanding the patient, questionable if due to slurred speech or patient's confusion. Family denies fever or vomiting. Time Seen by Provider: 09/24/16 18:30 Chief Complaint (Nursing): Eye Problem History Per: EMS, Family History/Exam Limitations: Clinical Condition Onset/Duration Of Symptoms: Hrs (since this morning ), Sudden Onset ( intermittent vision loss and slurred speech ) Current Symptoms Are (Timing): Still Present Usual Baseline: Alert Oriented (Family states patient is normally interactive, alert, and talkative ), Ambulatory Exacerbating Factor(s): Unknown Use Of Anticoag/Antiplatelets: Unknown Speech Is: Slurred (as per family, they are ahving trouble understanding patient. Questionable slurred speech or confusion. ) Additional History Per: Patient, Prior Records Associated Symptoms: Other (Vision loss and slurred speech ). denies: Fever, Vomiting Past Medical History Reviewed: Historical Data, Nursing Documentation, Vital Signs Vital Signs: Last Vital Signs Temp 98.2 F 09/24/16 18:13 Pulse 80 09/24/16 18:13 Resp 16 09/24/16 18:13 BP 148/86 09/24/16 18:13 Pulse Ox 96 09/24/16 20:26 - Medical History PMH: Arthritis (NECK DJD), HTN - [facility] Procedures FIBER-OPTIC BRONCHOSCOPY (07/16/13) OTHER LOBECTOMY OF LUNG (07/16/13) SIMP EXC LYMPH STRUC NEC (07/16/13) Family History: States: Unknown Family Hx - Social History Hx Tobacco Use: No Hx Alcohol Use: No Hx Substance Use: No - Immunization History Hx Tetanus Toxoid Vaccination: No Hx Influenza Vaccination: No Hx Pneumococcal Vaccination: Yes Review Of Systems Review Of Systems: ROS cannot be obtained secondary to pt's inabilty to answer questions. (limited due to clinical condition. Information as per patient's family.) Constitutional: Negative for: Fever Eyes: Positive for: Vision Change (intermittent vision loss ) Gastrointestinal: Negative for: Vomiting Neurological: Positive for: Other (Questionable slurred speech or confusion) Physical Exam - Physical Exam Appears: Non-toxic, In Acute Distress (moderate distress ) Skin: Warm, Dry Eye(s): bilateral: PERRL, EOMI, Other (positive blink reflex ) Oral Mucosa: Moist Neck: Supple Chest: Symmetrical Cardiovascular: Rhythm Regular Respiratory: Normal Breath Sounds, No Rales, No Rhonchi, No Wheezing Neurological/Psych: Other (CEENIH) ED Course And Treatment - Laboratory Results Result Diagrams: 09/24/16 18:49 09/24/16 18:49 ECG: Interpreted By Md ECG Rhythm: Sinus Rhythm, 1st Degree HB Rate From EC O2 Sat by Pulse Oximetry: 96 (room air ) Pulse Ox Interpretation: Normal - Radiology CXR: Interpreted by Me CXR Interpretation: Yes: Other (L LUNG OPACIFCATION UNCH FROM PRIOR) - CT Scan/US CT Head Other Rad Studies (CT/US): Read By Radiologist, Radiology Report Reviewed CT/US Interpretation: EXAM: CT Head Without Intravenous Contrast. EXAM DATE/ TIME: Exam ordered 09/24/2016 6:44 PM. CLINICAL HISTORY: 76 years old, female ; Signs and symptoms; Other: Vision change slurred speech; Additional info: Vision change, slurred speech. TECHNIQUE: Axial computed tomography images of the head/brain without intravenous contrast. All CT scans at. this facility use one or more dose reduction techniques, viz.: automated exposure control; ma/ kV. adjustment per patient size (including targeted exams where dose is matched to indication; i.e. head);. or iterative reconstruction technique. Coronal and sagittal reformatted images were created and reviewed. COMPARISON: CT - HEAD W/O CONTRAST 09/17/2016 6:09:25 PM. FINDINGS: Brain: There is mild cortical atrophy. No hemorrhage. Mild low density is noted within the. periventricular white matter extending into the jackson radiata and centrum semiovale bilaterally. Ventricles: Unremarkable. No ventriculomegaly. Bones/ joints: Unremarkable. No acute fracture. Soft tissues: Unremarkable. Sinuses: Mucosal thickening is noted within the ethmoid air cells bilaterally. Mastoid air cells: There is partial opacification of the right mastoid air cells and under. pneumatization.. IMPRESSION: 1. No acute findings. 2. Mucosal thickening within the ethmoid air cells bilaterally. 3. Under pneumatization of the right mastoid which may be related to chronic mastoiditis. No change. 4. Chronic microvascular ischemic change. NIHSS Stroke Scale - Date/Time Evaluation Performed Date Performed: 09/24/16 When Was NIHSS Performed: Baseline - How Severe is the Stoke Level of Consciousness: 0=Alert LOC to Questions: 0=Both comments correct LOC to commands: 0=Obeys both correctly Best Gaze: 0=Normal Visual: 0=No visual loss (POOR COOPERATIVE) Facial: 0=Normal Motor Arm - Left: 0=No drift Motor Arm - Right: 0=No drift Motor Leg - Left: 0=No drift Motor Leg - Right: 0=No drift Limb Ataxia: 0=Absent Sensory: 0=Normal Best Language: 1=Mild to moderate aphasia (POOR EFFORT) Dysarthia: 1=Mild to moderate slurring Extinction & Inattention (Neglect): 0=Normal, no object Score: 2 Severity Of Stroke: 1-4= Minor Stroke Progress - Re-Evaluation Re-evaluation Note: 09/24/16 20:25 EXAM UNCH. D/W DR Silke BECK, WILL ADMIT. CONSULT OPTHO [employer]. ASA. - Data Reviewed Data Reviewed: Lab, Diagnostic imaging, EKG, Old records rTPA Inclusion/Exclusion - Refusal of Treatment Patient Refused Treatment: No - Inclusion Criteria for Altepase Patient is 18 years or Older: Yes Clinical DX Ischemic Stroke Cause Neurological Deficit: Yes Time of Onset Established Less Than 270 Mins Before TX Begin: No Risk/Benefit Discussed With Patient/Family Member Present: Yes - Exclusion Criteria for Altepase Uncontrolled Hypertension at Time of TX (SBP>185 or DBP>110): No Active Internal Bleeding: No Known Bleeding Diathesis: No Evidence of an Intracranial Hemorrhage: No Evidence Major Acute Infarct w/ Signs Greater Than 1/3 MCA: No Suspicion of Subarachnoid Bleed on PreTX Eval(CT: neg bleed): No - Warning to TPA With Conditions Following Conditions Weighed Against Anticipated Benefit: Yes Condition: Stroke Serevity Too Mild, Age Greater Than 75 years Disposition Counseled Patient/Family Regarding: Studies Performed, Diagnosis - Disposition Disposition: HOSPITALIZED Disposition Time: 20:26 Condition: STABLE - POA Present On Arrival: None - Clinical Impression Clinical Impression: Slurred speech, Vision changes - Scribe Statement The provider has reviewed the documentation as recorded by the Scribe Alix Boswell All medical record entries made by the Scribe were at my direction and personally dictated by me. I have reviewed the chart and agree that the record accurately reflects my personal performance of the history, physical exam, medical decision making, and the department course for this patient. I have also personally directed, reviewed, and agree with the discharge instructions and disposition. Decision To Admit - Pt Status Changed To: Hospital Disposition Of: Inpatient - Admit Certification Admit to Inpatient:: After my assessment, the patient will require hospitalization for at least two midnights. This is because of the severity of symptoms shown, intensity of services needed, and/or the medical risk in this patient being treated as an outpatient. - InPatient: Physician Admission Certification:: SEE NOTE - . Bed Request Type: Telemetry Admitting Physician: Arjun Beck Patient Diagnosis: Slurred speech, Vision changes
[2016-09-24 18:52] LABS: BASO % 0.3 % (0.0-2.0); EOS # 0.2 K/uL (0.0-0.7); EOS % 2.3 % (0.0-4.0); HEMATOCRIT 40.3 % (34.0-47.0); LYMPH # 3.3 K/uL (1.0-4.3); LYMPH % 32.8 % (20.0-40.0); MEAN CELL VOLUME 82.3 fL (81.0-99.0); MEAN CORPUSCULAR HEMOGLOBIN 26.7 pg (27.0-31.0); MEAN CORPUSCULAR HGB CONC 32.5 g/dL (33.0-37.0); MEAN PLATELET VOLUME 7.1 fL (7.2-11.7); MONO # 0.9 K/uL (0.0-0.8); MONO % 8.9 % (0.0-10.0); RED CELL DISTRIBUTION WIDTH 15.5 % (11.5-14.5)
[2016-09-24 19:01] LABS: CHLORIDE 99 mmol/L (98-107); POTASSIUM 4.1 mmol/L (3.6-5.2); SODIUM 137 mmol/L (132-148)
[2016-09-24 19:03] LABS: BILIRUBIN,TOTAL 0.6 mg/dL (0.2-1.3); GFR AFRICAN-AMERICAN > 60
[2016-09-24 19:04] LABS: ALKALINE PHOSPHATASE 91 U/L (38-126); ALT/SGPT 38 U/L (9-52); AST/SGOT 32 U/L (14-36); BLOOD UREA NITROGEN 13 mg/dL (7-17); CARBON DIOXIDE 24 mmol/L (22-30); GLUCOSE,RANDOM 97 mg/dL (65-105); TOTAL PROTEIN 7.6 g/dL (6.3-8.3)
[2016-09-24 19:05] LABS: CALCIUM 9.6 mg/dl (8.6-10.4)
[2016-09-24 19:06] LABS: VENOUS BLOOD GAS BASE EXCESS 1.9 mmol/L (0.0-2.0); VENOUS BLOOD GAS PCO2 41 mmHg (40-60); VENOUS BLOOD PH 7.42 (7.32-7.43)
[2016-09-24 19:06] LABS: INR 1.1
[2016-09-24 19:35] LABS: RBC URINE 1 /hpf (0-3); URINE BILIRUBIN NEGATIVE (NEGATIVE); URINE BLOOD NEGATIVE (NEGATIVE); URINE COLOR Yellow (YELLOW); URINE GLUCOSE (UA) NORMAL (Normal); URINE KETONE NEGATIVE (NEGATIVE); URINE LEUKOCYTE ESTERASE NEG Leu/uL (Negative); URINE PROTEIN NEGATIVE (NEGATIVE); URINE UROBILINOGEN NORMAL mg/dL (0.2-1.0); WBC URINE 1 /hpf (0-5)
--- NOTE | 2016-09-24 20:02 | RAD ---
HISTORY: AMS COMPARISON: Chest x-ray performed 09/17/16 TECHNIQUE: Chest, one view. FINDINGS: LUNGS: Complete opacification of the left mike thorax. Mediastinal shift to the left. CARDIOVASCULAR: Obscured. OSSEOUS STRUCTURES: Osseous demineralization. Degenerative changes. VISUALIZED UPPER ABDOMEN: Unremarkable. OTHER FINDINGS: None. IMPRESSION: Complete opacification of the left mike thorax. Mediastinal shift the left.
--- NOTE | 2016-09-24 20:19 | CT ---
EXAM: CT Head Without Intravenous Contrast EXAM DATE/TIME: Exam ordered 09/24/2016 6:44 PM CLINICAL HISTORY: 76 years old, female; Signs and symptoms; Other: Vision change slurred speech; Additional info: Vision change, slurred speech TECHNIQUE: Axial computed tomography images of the head/brain without intravenous contrast. All CT scans at this facility use one or more dose reduction techniques, viz.: automated exposure control; ma/kV adjustment per patient size (including targeted exams where dose is matched to indication; i.e. head); or iterative reconstruction technique. Coronal and sagittal reformatted images were created and reviewed. COMPARISON: CT - HEAD W/O CONTRAST 09/17/2016 6:09:25 PM FINDINGS: Brain: There is mild cortical atrophy. No hemorrhage. Mild low density is noted within the periventricular white matter extending into the jackson radiata and centrum semiovale bilaterally. Ventricles: Unremarkable. No ventriculomegaly. Bones/joints: Unremarkable. No acute fracture. Soft tissues: Unremarkable. Sinuses: Mucosal thickening is noted within the ethmoid air cells bilaterally. Mastoid air cells: There is partial opacification of the right mastoid air cells and under pneumatization.. IMPRESSION: 1. No acute findings. 2. Mucosal thickening within the ethmoid air cells bilaterally. 3. Under pneumatization of the right mastoid which may be related to chronic mastoiditis. No change. 4. Chronic microvascular ischemic change.
--- NOTE | 2016-09-24 23:35 | CP.PCM.HP ---
Present on Admission - Present on Admission Any Indicators Present on Admission: No Past Patient History - Infectious Disease Hx of Infectious Diseases: None - Past Medical History & Family History Past Medical History?: Yes - Past Social History Smoking Status: Never Smoked - CARDIAC Hx Hypertension: Yes - PULMONARY Hx Respiratory Disorders: Yes Hx Lung Cancer: Yes - NEUROLOGICAL Hx Neurological Disorder: No - HEENT Hx HEENT Problems: Yes Hx Cataracts: Yes (EXT RIGHT EYE IOL) - RENAL Hx Chronic Kidney Disease: No - ENDOCRINE/METABOLIC Hx Endocrine Disorders: No - HEMATOLOGICAL/ONCOLOGICAL Hx Blood Disorders: Yes Hx Cancer: Yes (lung) - INTEGUMENTARY Hx Dermatological Problems: No - MUSCULOSKELETAL/RHEUMATOLOGICAL Hx Arthritis: Yes (NECK DJD) - GASTROINTESTINAL Hx Gastrointestinal Disorders: Yes Hx Gastroesophageal Reflux: Yes - GENITOURINARY/GYNECOLOGICAL Hx Genitourinary Disorders: No - PSYCHIATRIC Hx Substance Use: No - SURGICAL HISTORY Hx Surgeries: Yes Hx Cataract Extraction: Yes (RIGHT IOL) Other/Comment: LUNG BX - ANESTHESIA Hx Anesthesia: Yes Hx Anesthesia Reactions: Yes Hx Malignant Hyperthermia: No Meds Allergies/Adverse Reactions: Allergies Allergy/AdvReac Type Severity Reaction Status Date / Time No Known Allergies Allergy Verified 09/24/16 18:13 Physical Exam - Constitutional Appears: Well - Eye Exam Eye Exam: EOMI, Normal appearance, PERRL Pupil Exam: NORMAL ACCOMODATION, PERRL - ENT Exam ENT Exam: Mucous Membranes Moist, Normal Exam - Neck Exam Neck exam: Positive for: Normal Inspection - Respiratory Exam Respiratory Exam: Decreased Breath Sounds - Cardiovascular Exam Cardiovascular Exam: REGULAR RHYTHM - GI/Abdominal Exam GI & Abdominal Exam: Diminished Bowel Sounds, Soft - Rectal Exam Rectal Exam: Deferred Results - Vital Signs Recent Vital Signs: Last Vital Signs Temp 98.2 F 09/24/16 18:13 Pulse 89 09/24/16 21:41 Resp 16 09/24/16 21:41 BP 146/75 09/24/16 21:41 Pulse Ox 96 09/24/16 21:41 - Labs Result Diagrams: 09/24/16 18:49 09/24/16 18:49 Assessment & Plan (1) Slurred speech Status: Acute (2) Vision changes Status: Acute (3) Chest pain Status: Acute (4) Chronic jaw pain Status: Acute (5) Contusion, knee Status: Acute (6) Dyspnea Status: Acute (7) Fall Status: Acute (8) H/O: lung cancer Status: Acute (9) Influenza-like illness Status: Acute (10) Post-op pain Status: Acute (11) Prophylactic measure Status: Acute (12) Urinary tract infection Status: Acute (13) Weakness Status: Acute (14) Unable to ambulate Status: Chronic
[2016-09-25] MEDS ORDERED: Dextrose 5%/0.45% NS 1,000 ML IV ONE ×2 (01:19→15:09)
[2016-09-25] MEDS: Dextrose 5%/0.45% NS 1,000 ML IV SCH ×2 (01:20→14:05)
--- NOTE | 2016-09-25 07:54 | CP.PCM.PN ---
Subjective - Date & Time of Evaluation Date of Evaluation: 09/25/16 Time of Evaluation: 07:20 - Subjective Subjective: clinically same Objective - Vital Signs/Intake and Output Vital Signs (last 24 hours): Temp Pulse Resp BP Pulse Ox 98 F 82 18 149/63 97 09/25/16 07:44 09/25/16 07:44 09/25/16 07:44 09/25/16 07:44 09/25/16 07:44 - Medications Medications: Current Medications Aspirin (Aspirin Supp) 300 mg TN DAILY [facility] Dextrose/Sodium Chloride (Dextrose 5%/0.45% Ns 1000 Ml) 1,000 mls @ 75 mls/hr IV .[id number] [facility] Last Admin: 09/25/16 01:20 Dose: 75 mls/hr - Labs Labs: PT 12.7 SECONDS (9.7-12.2) H 09/24/16 18:49 INR 1.1 09/24/16 18:49 APTT 31 SECONDS (21-34) 09/24/16 18:49 - Constitutional Appears: Well - Head Exam Head Exam: ATRAUMATIC, NORMAL INSPECTION, NORMOCEPHALIC - Eye Exam Eye Exam: EOMI, Normal appearance, PERRL Pupil Exam: NORMAL ACCOMODATION, PERRL - ENT Exam ENT Exam: Mucous Membranes Moist, Normal Exam - Neck Exam Neck Exam: Full ROM, Normal Inspection. absent: Lymphadenopathy - Respiratory Exam Respiratory Exam: Decreased Breath Sounds - Cardiovascular Exam Cardiovascular Exam: REGULAR RHYTHM, +S1 - GI/Abdominal Exam GI & Abdominal Exam: Soft, Diminished Bowel Sounds - Rectal Exam Rectal Exam: Deferred Assessment and Plan (1) Slurred speech Status: Acute (2) Vision changes Status: Acute (3) Chest pain Status: Acute (4) Chronic jaw pain Status: Acute (5) Contusion, knee Status: Acute (6) Dyspnea Status: Acute (7) Fall Status: Acute (8) H/O: lung cancer Status: Acute (9) Influenza-like illness Status: Acute (10) Post-op pain Status: Acute (11) Prophylactic measure Status: Acute (12) Urinary tract infection Status: Acute (13) Weakness Status: Acute (14) Unable to ambulate Status: Chronic
[2016-09-25] MEDS ORDERED: Enoxaparin 40 mg Syringe ONE (14:59)
[2016-09-25] MEDS: Enoxaparin 40 mg Syringe SC SCH (15:05)
[2016-09-25 15:22] LABS: CHOLESTEROL 188 mg/dL (0-199)
[2016-09-26] MEDS: Dextrose 5%/0.45% NS 1,000 ML IV SCH ×4 (04:53→22:05)
[2016-09-26] MEDS: Enoxaparin 40 mg Syringe SC SCH (10:43)
--- NOTE | 2016-09-26 13:21 | CP.PCM.PN ---
Subjective - Date & Time of Evaluation Date of Evaluation: 09/26/16 Time of Evaluation: 13:20 - Subjective Subjective: Patient seen and examined Chart reviewed Slight slurred speech is still present Patient is a poor historian No distress Objective - Vital Signs/Intake and Output Vital Signs (last 24 hours): Temp Pulse Resp BP Pulse Ox 97.3 F L 74 18 118/68 96 09/26/16 08:19 09/26/16 08:19 09/26/16 08:19 09/26/16 08:19 09/26/16 08:19 - Medications Medications: Current Medications Acetaminophen (Tylenol 650 Mg Supp) 650 mg ID Q6 PRN PRN Reason: Pain, moderate (4-7) Last Admin: 09/26/16 04:54 Dose: 650 mg Aspirin (Aspirin Supp) 300 mg ID DAILY [facility] Last Admin: 09/26/16 10:43 Dose: 300 mg Enoxaparin Sodium (Lovenox) 40 mg SC DAILY [facility] Last Admin: 09/26/16 10:43 Dose: 40 mg Dextrose/Sodium Chloride (Dextrose 5%/0.45% Ns 1000 Ml) 1,000 mls @ 75 mls/hr IV .[id number] [facility] Last Admin: 09/26/16 04:54 Dose: Not Given - Labs Labs: PT 12.7 SECONDS (9.7-12.2) H 09/24/16 18:49 INR 1.1 09/24/16 18:49 APTT 31 SECONDS (21-34) 09/24/16 18:49 - Head Exam Head Exam: NORMAL INSPECTION - Eye Exam Eye Exam: Normal appearance - ENT Exam ENT Exam: Mucous Membranes Moist - Respiratory Exam Respiratory Exam: Clear to Ausculation Bilateral, NORMAL BREATHING PATTERN - Cardiovascular Exam Cardiovascular Exam: REGULAR RHYTHM, +S1, +S2 - GI/Abdominal Exam GI & Abdominal Exam: Soft, Normal Bowel Sounds - Extremities Exam Extremities Exam: Normal Inspection - Neurological Exam Neurological Exam: Alert, Oriented x3 - Psychiatric Exam Psychiatric exam: Normal Affect, Normal Mood Assessment and Plan - Assessment and Plan (Free Text) Assessment: Possible acute CVA Hypertension History of lung CA Degenerative joint disease Aspirin 81 mg p.o. daily Speech evaluation Physiotherapy Blood pressure control Statins Neurology consult DVT GI prophylaxis
--- NOTE | 2016-09-26 18:59 | MRI ---
PROCEDURE: MR Angiography of the neck without contrast HISTORY: tia COMPARISON: None available. TECHNIQUE: 3D [id number] angiography of the neck was performed. Rotating maximum intensity projection images of the cervical carotid and vertebral arteries were generated. The origins of the common carotid arteries were not visualized, which is a limitation inherent to the non-contrast time of flight technique. FINDINGS: RIGHT CAROTID ARTERIES: Common Carotid Artery: Normal. Carotid Bifurcation: Normal. Internal Carotid Artery:Normal. External Carotid Artery (proximal branches): Normal. LEFT CAROTID ARTERIES: Common Carotid Artery: Normal. Carotid Bifurcation: Normal. Internal Carotid Artery:Normal. External Carotid Artery (proximal branches): Normal. VERTEBRAL ARTERIES: Right Vertebral Artery: Small size tortuous right vertebral artery. Left Vertebral Artery: Normal. OTHER FINDINGS: None. IMPRESSION: No evidence of significant stenosis in the carotid artery at the neck. Small tortuous right vertebral artery.
--- NOTE | 2016-09-26 19:05 | MRI ---
PROCEDURE: MRI BRAIN WITHOUT CONTRAST HISTORY: tia COMPARISON: Comparison is made to the previous study dated 12/08/2013 TECHNIQUE: Multiplanar, multisequence MR images of the brain were obtained without intravenous contrast enhancement. FINDINGS: HEMORRHAGE: None DWI: No evidence of an acute or early subacute infarction. BRAIN PARENCHYMA: No mass effect or edema. Moderate atrophy is again noted. Mild white matter changes are also again seen. VENTRICLES: Unremarkable. No hydrocephalus. CRANIUM: Unremarkable. ORBITS: Grossly unremarkable. PARANASAL SINUSES/MASTOIDS: Clear VASCULAR SYSTEM: Skull base flow voids intact. OTHER FINDINGS: None. IMPRESSION: No evidence of acute or subacute infarction. Moderate atrophy.
--- NOTE | 2016-09-26 19:09 | MRI ---
PROCEDURE: Magnetic Resonance Angiography Brain HISTORY: tia COMPARISON: None available. TECHNIQUE: 3D time of flight MR angiography of the intracranial arteries was performed. Rotating maximum intensity projection images were generated. FINDINGS: INTERNAL CEREBRAL ARTERIES: Diffuse irregularity seen suggestive of atherosclerotic disease. The skull base, petrous, cavernous and supraclinoid segments are bilaterally widely patient. ANTERIOR CEREBRAL ARTERIES: Unremarkable. A1 and A2 segments are widely patent. Smaller distal branches unremarkable, as visualized. MIDDLE CEREBRAL ARTERIES: Diffuse irregularity seen suggestive of atherosclerotic disease. . M1 and M2 segments are widely patent. Perisylvian branches grossly symmetric. POSTERIOR CIRCULATION: Basilar Artery: Unremarkable. Distal Vertebral Arteries: Unremarkable. Posterior Cerebral Arteries: Unremarkable. Posterior Inferior Cerebellar Arteries: Unremarkable. ANEURYSM/ VASCULAR MALFORMATIONS: None. OTHER FINDINGS: None. IMPRESSION: No evidence of focal stenosis in the intracranial arteries. Diffuse irregularity seen suggestive of atherosclerotic disease.
--- NOTE | 2016-09-26 21:46 | CON ---
NEUROLOGY CONSULTATION DATE: 09/26/2016 CHIEF COMPLAINT: Transient slurred speech and left eye visual loss. HISTORY OF PRESENT ILLNESS: This is a 76-year-old woman with history of lung cancer, history of hypertension, arthritis, dyslipidemia, disc degenerative disease especially at L5 and S1 level, history of bilateral temporomandibular joint arthroplasty who came into also transient slurred speech. She felt like there was mucus stuck in her throat, difficulty to speak as well as temporary intermittent visual loss in the left eye, which resolved and has a questionable left-sided weakness. Currently, at her baseline, she speaking lot more, following simple commands and less dysarthric. She does have dementia and she is very slow to respond with a cachectic looking feature. PAST MEDICAL HISTORY: History of lung cancer, history of gastroesophageal reflux disease, arthritis, degenerative disk disease in the cervical and lumbosacral area, history of hypertension and dyslipidemia. FAMILY HISTORY: Noncontributory. SOCIAL HISTORY: No illicit drug use, smoking or EtOH abuse. ALLERGIES: NO KNOWN DRUG ALLERGIES. MEDICATIONS: Reviewed by nurse reconciliation sheet. PHYSICAL EXAMINATION: VITAL SIGNS: Temperature 97.7, pulse rate of 74, blood pressure 149/85, respiratory rate 20 and oxygen saturation is 97% on room air. GENERAL: The patient is sitting up in bed, in no acute distress with mass like facies. LUNGS: Clear to auscultation. No adventitious sounds. HEART: S1 and S2. Normal rate and rhythm. No murmur, rubs, or gallops. ABDOMEN: Soft, nontender and nondistended. Bowel sounds are present. EXTREMITIES: No clubbing. No cyanosis. Peripheral pulses 2+ felt bilaterally. NEUROLOGIC: The patient is alert, oriented to person, place, month and year. Recall after 5 minutes 0 out of 3. Poor attention. Slow thought process. Speech is hypophonic, but no dysarthria noted. Motor exam; slight increased tone throughout. Moves all extremities equally. No pronator drift seen. Sensory exam; decreased light touch, pinprick, proprioception and vibration are intact bilaterally. DTRs are 1+ throughout. Co-ordination of [id number] intact. Gait deferred for now. LABORATORY DATA: Sodium is 137, potassium 4.1, chloride 99, carbon dioxide is 24, BUN of 13, creatinine 0.4 and random glucose 97. ASSESSMENT AND PLAN: This is a 76-year-old woman with past medical history of temporomandibular joint arthroplasty, history of chronic cervical and lumbar spondylolisthesis, disc degenerative joint disease, hypertension, dyslipidemia, history of lung cancer who had temporary slurred speech felt like there was mucus stuck in her throat, therefore difficult to speak along with transient intermittent loss of vision of the left eye. She is currently back at her baseline. No focal neurological deficit seen on examination and suffered underlying arthritis and features of dementia. At this time recommend: 1. Aspirin 81 mg as well as Lipitor 40 mg p.o. daily for stroke prevention. 2. Speech and swallow evaluation. 3. MRI of the brain and MRA of the head and neck to assess for any carotid disease or acute intracranial abnormalities causing her symptoms. Overall, her symptoms could be possibly secondary to underlying transient ischemic event. 4. Get physical and occupational therapy and possible need subacute rehab. 5. Monitor electrolytes and hydrate since she is mildly dehydrated and continue current present medical management. Thank you for this consult. Alexandre Sams MD
[2016-09-27] MEDS: Dextrose 5%/0.45% NS 1,000 ML IV SCH ×4 (08:10→22:35)
--- NOTE | 2016-09-27 09:37 | CP.PCM.PN ---
Subjective - Date & Time of Evaluation Date of Evaluation: 09/27/16 Time of Evaluation: 08:55 - Subjective Subjective: NEUROLOGY FOLLOW UP DATE: 09/27/2016 CHIEF COMPLAINT: F/U FOR Transient slurred speech and left eye visual loss. SUBJECTIVE: This is a 76-year-old woman with history of lung cancer, history of hypertension, arthritis, dyslipidemia, disc degenerative disease especially at L5 and S1 level, history of bilateral temporomandibular joint arthroplasty who came into also transient slurred speech. She felt like there was mucus stuck in her throat, difficulty to speak as well as temporary intermittent visual loss in the left eye, which resolved and has a questionable left-sided weakness. Currently, at her baseline, she speaking lot more, following simple commands and less dysarthric. She does have dementia and she is very slow to respond with a cachectic looking feature. MRI BRAIN SHOWED NO ACUTE ABNORMALITIES. MRA HAD/NECK NO SIGNIFICANT STENOSIS. No acute events overnight. PAST MEDICAL HISTORY: History of lung cancer, history of gastroesophageal reflux disease, arthritis, degenerative disk disease in the cervical and lumbosacral area, history of hypertension and dyslipidemia. FAMILY HISTORY: Noncontributory. SOCIAL HISTORY: No illicit drug use, smoking or EtOH abuse. ALLERGIES: NO KNOWN DRUG ALLERGIES. MEDICATIONS: Reviewed by nurse reconciliation sheet. PHYSICAL EXAMINATION: VITAL SIGNS:Reviewed. GENERAL: The patient is sitting up in bed, in no acute distress with mass like facies. LUNGS: Clear to auscultation. No adventitious sounds. HEART: S1 and S2. Normal rate and rhythm. No murmur, rubs, or gallops. ABDOMEN: Soft, nontender and nondistended. Bowel sounds are present. EXTREMITIES: No clubbing. No cyanosis. Peripheral pulses 2+ felt bilaterally. NEUROLOGIC: The patient is alert, oriented to person, place, month and year. Recall after 5 minutes 0 out of 3. Poor attention. Slow thought process. Speech is hypophonic, but no dysarthria noted. Motor exam; slight increased tone throughout. Moves all extremities equally. No pronator drift seen. Sensory exam; decreased light touch, pinprick, proprioception and vibration are intact bilaterally. DTRs are 1+ throughout. Co-ordination of [id number] intact. Gait deferred for now. LABORATORY DATA: Reviewed. ASSESSMENT AND PLAN: This is a 76-year-old woman with past medical history of temporomandibular joint arthroplasty, history of chronic cervical and lumbar spondylolisthesis, disc degenerative joint disease, hypertension, dyslipidemia, history of lung cancer who had temporary slurred speech felt like there was mucus stuck in her throat, therefore difficult to speak along with transient intermittent loss of vision of the left eye. She is currently back at her baseline. No focal neurological deficit seen on examination and suffered underlying arthritis and features of dementia. Symptoms seem more of ? tia superimposed generalized deconditioned stated. MRI brain, MRA neck/head showed no acute abnormality. At this time recommend: 1. Aspirin 81 mg as well as Lipitor 40 mg p.o. daily for stroke prevention. 2. Speech and swallow evaluation. 3. Get physical and occupational therapy and possible need subacute rehab. 5. Monitor electrolytes and hydrate since she is mildly dehydrated and continue current present medical management. Thank you for this follow up. Alexandre Sams MD Objective - Vital Signs/Intake and Output Vital Signs (last 24 hours): Temp Pulse Resp BP Pulse Ox 97.9 F 99 H 18 143/86 95 09/27/16 07:30 09/27/16 09:00 09/27/16 07:30 09/27/16 07:30 09/27/16 07:30 Intake and Output: 09/27/16 09/27/16 06:59 18:59 Intake Total 1200 Balance 1200 - Medications Medications: Current Medications Acetaminophen (Tylenol 650 Mg Supp) 650 mg SD Q6 PRN PRN Reason: Pain, moderate (4-7) Last Admin: 09/26/16 04:54 Dose: 650 mg Aspirin (Aspirin Supp) 300 mg SD DAILY [facility] Last Admin: 09/26/16 10:43 Dose: 300 mg Enoxaparin Sodium (Lovenox) 40 mg SC DAILY [facility] Last Admin: 09/26/16 10:43 Dose: 40 mg Dextrose/Sodium Chloride (Dextrose 5%/0.45% Ns 1000 Ml) 1,000 mls @ 75 mls/hr IV .[id number] [facility] Last Admin: 09/27/16 08:10 Dose: Not Given - Labs Labs: PT 12.7 SECONDS (9.7-12.2) H 09/24/16 18:49 INR 1.1 09/24/16 18:49 APTT 31 SECONDS (21-34) 09/24/16 18:49
[2016-09-27] MEDS: Enoxaparin 40 mg Syringe SC SCH (10:43)
--- NOTE | 2016-09-27 16:27 | CP.PCM.PN ---
Subjective - Date & Time of Evaluation Date of Evaluation: 09/27/16 Time of Evaluation: 16:27 - Subjective Subjective: Patient seen and examined Minimal slurred speech Continue to improve clinically Objective - Vital Signs/Intake and Output Vital Signs (last 24 hours): Temp Pulse Resp BP Pulse Ox 97.9 F 99 H 18 143/86 95 09/27/16 07:30 09/27/16 09:00 09/27/16 07:30 09/27/16 07:30 09/27/16 07:30 Intake and Output: 09/27/16 09/27/16 06:59 18:59 Intake Total 1200 Balance 1200 - Medications Medications: Current Medications Acetaminophen (Tylenol 325mg Tab) 650 mg PO Q6 PRN PRN Reason: Anxiety Aspirin (Aspirin Chewable) 81 mg PO DAILY [facility] Enoxaparin Sodium (Lovenox) 40 mg SC DAILY [facility] Last Admin: 09/27/16 10:43 Dose: 40 mg Dextrose/Sodium Chloride (Dextrose 5%/0.45% Ns 1000 Ml) 1,000 mls @ 75 mls/hr IV .[id number] [facility] Last Admin: 09/27/16 10:43 Dose: 75 mls/hr Rosuvastatin Calcium (Crestor) 20 mg PO HS [facility] - Labs Labs: PT 12.7 SECONDS (9.7-12.2) H 09/24/16 18:49 INR 1.1 09/24/16 18:49 APTT 31 SECONDS (21-34) 09/24/16 18:49 - Head Exam Head Exam: NORMAL INSPECTION - Eye Exam Eye Exam: Normal appearance - ENT Exam ENT Exam: Mucous Membranes Moist - Respiratory Exam Respiratory Exam: Clear to Ausculation Bilateral - GI/Abdominal Exam GI & Abdominal Exam: Soft, Normal Bowel Sounds - Extremities Exam Extremities Exam: Normal Inspection - Neurological Exam Neurological Exam: Alert, Awake - Skin Skin Exam: Normal Color Assessment and Plan - Assessment and Plan (Free Text) Assessment: Acute CVA versus TIA Hypertension History of lung CA Degenerative joint disease Aspirin 81 mg p.o. daily Speech therapy Physiotherapy Blood pressure control Statins Neurology consult appreciated DVT GI prophylaxis
--- NOTE | 2016-09-27 18:59 | CARD ---
APPROVED REPORT EKG Measurement Heart [id number] <Conclusion> Sinus rhythm with 1st degree AV block Indeterminate axis Pulmonary disease pattern Septal infarct, age undetermined cannot be excluded. T wave abnormality, consider anterior ischemia Abnormal ECG
[2016-09-28 08:51] VITALS: TEMP 97.5; O2SAT 97
[2016-09-28] MEDS: Enoxaparin 40 mg Syringe SC SCH (10:12)
--- NOTE | 2016-09-28 14:55 | CP.PCM.PN ---
Subjective - Date & Time of Evaluation Date of Evaluation: 09/28/16 Time of Evaluation: 14:55 - Subjective Subjective: PT CLEARED FOR D/C. 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 SON WILL PICK HER UP THIS AFTERNOON. TO F/U WITH PMD AND NEURO OP. NO FURTHER ORDERS. Objective - Vital Signs/Intake and Output Vital Signs (last 24 hours): Temp Pulse Resp BP Pulse Ox 97.5 F L 73 18 153/81 H 97 09/28/16 07:40 09/28/16 07:40 09/28/16 07:40 09/28/16 07:40 09/28/16 07:40 Intake and Output: 09/28/16 09/28/16 06:59 18:59 Intake Total 1350 Output Total 0 Balance 1350 - Medications Medications: Current Medications Acetaminophen (Tylenol 325mg Tab) 650 mg PO Q6 PRN PRN Reason: Anxiety Last Admin: 09/28/16 10:12 Dose: 650 mg Aspirin (Aspirin Chewable) 81 mg PO DAILY [facility] Last Admin: 09/28/16 10:12 Dose: 81 mg Enoxaparin Sodium (Lovenox) 40 mg SC DAILY [facility] Last Admin: 09/28/16 10:12 Dose: 40 mg Rosuvastatin Calcium (Crestor) 20 mg PO HS [facility] Last Admin: 09/27/16 22:38 Dose: 20 mg - Labs Labs: PT 12.7 SECONDS (9.7-12.2) H 09/24/16 18:49 INR 1.1 09/24/16 18:49 APTT 31 SECONDS (21-34) 09/24/16 18:49
--- NOTE | 2016-09-28 14:59 | CP.PCM.PN ---
Subjective - Date & Time of Evaluation Date of Evaluation: 09/28/16 Time of Evaluation: 14:59 - Subjective Subjective: Patient seen and examined No events overnight Objective - Vital Signs/Intake and Output Vital Signs (last 24 hours): Temp Pulse Resp BP Pulse Ox 97.5 F L 73 18 153/81 H 97 09/28/16 07:40 09/28/16 07:40 09/28/16 07:40 09/28/16 07:40 09/28/16 07:40 Intake and Output: 09/28/16 09/28/16 06:59 18:59 Intake Total 1350 Output Total 0 Balance 1350 - Medications Medications: Current Medications Acetaminophen (Tylenol 325mg Tab) 650 mg PO Q6 PRN PRN Reason: Anxiety Last Admin: 09/28/16 10:12 Dose: 650 mg Aspirin (Aspirin Chewable) 81 mg PO DAILY [facility] Last Admin: 09/28/16 10:12 Dose: 81 mg Enoxaparin Sodium (Lovenox) 40 mg SC DAILY [facility] Last Admin: 09/28/16 10:12 Dose: 40 mg Rosuvastatin Calcium (Crestor) 20 mg PO HS [facility] Last Admin: 09/27/16 22:38 Dose: 20 mg - Labs Labs: PT 12.7 SECONDS (9.7-12.2) H 09/24/16 18:49 INR 1.1 09/24/16 18:49 APTT 31 SECONDS (21-34) 09/24/16 18:49 - Head Exam Head Exam: NORMAL INSPECTION - ENT Exam ENT Exam: Mucous Membranes Moist - Respiratory Exam Respiratory Exam: Clear to Ausculation Bilateral - GI/Abdominal Exam GI & Abdominal Exam: Soft, Normal Bowel Sounds - Extremities Exam Extremities Exam: Normal Inspection - Neurological Exam Neurological Exam: Alert, Oriented x3 - Psychiatric Exam Psychiatric exam: Normal Affect, Normal Mood Assessment and Plan - Assessment and Plan (Free Text) Assessment: Acute CVA versus TIA Hypertension History of lung CA Degenerative joint disease Aspirin 81 mg p.o. daily Speech therapy Physiotherapy Blood pressure control Statins DC planning DVT GI prophylaxis
[2016-09-28 16:07] VITALS: PULSE 85
[2016-09-28 16:32] VITALS: BP 168/83; RESP 20
--- NOTE | 2016-10-04 00:56 | CP.PCM.DIS ---
Provider - Provider Date of Admission: 09/24/16 20:26 Attending physician: Jasmyn Ramirez MD Time Spent in preparation of Discharge (in minutes): 25 Diagnosis - Discharge Diagnosis (1) CVA (cerebral vascular accident) Status: Acute (2) HTN (hypertension) Status: Acute (3) DJD (degenerative joint disease) Status: Acute Hospital Course - Lab Results Lab Results: Most Recent Lab Values WBC 10.0 K/uL (4.8-10.8) 09/24/16 18:49 RBC 4.90 Mil/uL (3.80-5.20) 09/24/16 18:49 Hgb 13.1 g/dL (11.0-16.0) 09/24/16 18:49 Hct 40.3 % (34.0-47.0) 09/24/16 18:49 MCV 82.3 fL (81.0-99.0) 09/24/16 18:49 MCH 26.7 pg (27.0-31.0) L 09/24/16 18:49 MCHC 32.5 g/dL (33.0-37.0) L 09/24/16 18:49 RDW 15.5 % (11.5-14.5) H 09/24/16 18:49 Plt Count 393 K/uL (130-400) 09/24/16 18:49 MPV 7.1 fL (7.2-11.7) L 09/24/16 18:49 Neut % (Auto) 55.7 % (50.0-75.0) 09/24/16 18:49 Lymph % (Auto) 32.8 % (20.0-40.0) 09/24/16 18:49 [place] % (Auto) 8.9 % (0.0-10.0) 09/24/16 18:49 Eos % (Auto) 2.3 % (0.0-4.0) 09/24/16 18:49 Baso % (Auto) 0.3 % (0.0-2.0) 09/24/16 18:49 Neut # 5.6 K/uL (1.8-7.0) 09/24/16 18:49 Lymph # 3.3 K/uL (1.0-4.3) 09/24/16 18:49 [place] # 0.9 K/uL (0.0-0.8) H 09/24/16 18:49 Eos # 0.2 K/uL (0.0-0.7) 09/24/16 18:49 Baso # 0.0 K/uL (0.0-0.2) 09/24/16 18:49 PT 12.7 SECONDS (9.7-12.2) H 09/24/16 18:49 INR 1.1 09/24/16 18:49 APTT 31 SECONDS (21-34) 09/24/16 18:49 pO2 48 mm/Hg (30-55) 09/24/16 19:02 VBG pH 7.42 (7.32-7.43) 09/24/16 19:02 VBG pCO2 41 mmHg (40-60) 09/24/16 19:02 VBG HCO3 26.1 mmol/L 09/24/16 19:02 VBG Total CO2 27.9 mmol/L (22-28) 09/24/16 19:02 VBG O2 Sat (Calc) 88.7 % (40-65) H 09/24/16 19:02 VBG Base Excess 1.9 mmol/L (0.0-2.0) 09/24/16 19:02 VBG Potassium 4.2 mmol/L (3.6-5.2) 09/24/16 19:02 Sodium 135.0 mmol/l (132-148) 09/24/16 19:02 Chloride 102.0 mmol/L (98-107) 09/24/16 19:02 Glucose 97 mg/dl (65-105) 09/24/16 19:02 Lactate 0.8 mmol/L (0.7-2.1) 09/24/16 19:02 FiO2 21.0 % 09/24/16 19:02 Sodium 137 mmol/L (132-148) 09/24/16 18:49 Potassium 4.1 mmol/L (3.6-5.2) 09/24/16 18:49 Chloride 99 mmol/L (98-107) 09/24/16 18:49 Carbon Dioxide 24 mmol/L (22-30) 09/24/16 18:49 Anion Gap 19 (10-20) 09/24/16 18:49 BUN 13 mg/dL (7-17) 09/24/16 18:49 Creatinine 0.4 MG/DL (0.7-1.2) L 09/24/16 18:49 Est GFR ( Amer) > 60 09/24/16 18:49 Est GFR (Non-Af Amer) > 60 09/24/16 18:49 Random Glucose 97 mg/dL (65-105) 09/24/16 18:49 Calcium 9.6 mg/dl (8.6-10.4) 09/24/16 18:49 Total Bilirubin 0.6 mg/dL (0.2-1.3) 09/24/16 18:49 AST 32 U/L (14-36) 09/24/16 18:49 ALT 38 U/L (9-52) 09/24/16 18:49 Alkaline Phosphatase 91 U/L (38-126) 09/24/16 18:49 Troponin I < 0.0120 ng/mL (0.00-0.120) 09/24/16 18:49 Total Protein 7.6 g/dL (6.3-8.3) 09/24/16 18:49 Albumin 3.8 g/dL (3.5-5.0) 09/24/16 18:49 Globulin 3.8 gm/dL (2.2-3.9) 09/24/16 18:49 Albumin/Globulin Ratio 1.0 (1.0-2.1) 09/24/16 18:49 Triglycerides 100 mg/dL (0-149) 09/25/16 15:05 Cholesterol 188 mg/dL (0-199) 09/25/16 15:05 LDL Cholesterol Direct 134 mg/dL (0-129) H 09/25/16 15:05 HDL Cholesterol 37 mg/dL (30-70) 09/25/16 15:05 Venous Blood Potassium 4.2 mmol/L (3.6-5.2) 09/24/16 19:02 Urine Color Yellow (YELLOW) 09/24/16 19:30 Urine Clarity Clear (Clear) 09/24/16 19:30 Urine pH 5.0 (5.0-8.0) 09/24/16 19:30 Ur Specific Swisher 1.013 (1.003-1.030) 09/24/16 19:30 Urine Protein Negative mg/dL (NEGATIVE) 09/24/16 19:30 Urine Glucose (UA) Normal mg/dL (Normal) 09/24/16 19:30 Urine Ketones Negative mg/dL (NEGATIVE) 09/24/16 19:30 Urine Blood Negative (NEGATIVE) 09/24/16 19:30 Urine Nitrate Negative (NEGATIVE) 09/24/16 19:30 Urine Bilirubin Negative (NEGATIVE) 09/24/16 19:30 Urine Urobilinogen Normal mg/dL (0.2-1.0) 09/24/16 19:30 Ur Leukocyte Esterase Neg Dolores/uL (Negative) 09/24/16 19:30 Urine WBC (Auto) 1 /hpf (0-5) 09/24/16 19:30 Urine RBC (Auto) 1 /hpf (0-3) 09/24/16 19:30 Ur Squamous Epith Cells < 1 /hpf (0-5) 09/24/16 19:30 - Hospital Course Hospital Course: Patient initially presented with slurred speech. Patient is evaluated by neurology and supportive care was recommended. Patient's condition improved clinically and was discharged in stable condition. Discharge Exam - Head Exam Head Exam: ATRAUMATIC, NORMAL INSPECTION, NORMOCEPHALIC - Eye Exam Eye Exam: Normal appearance - Respiratory Exam Respiratory Exam: Decreased Breath Sounds, Rhonchi - Cardiovascular Exam Cardiovascular Exam: REGULAR RHYTHM, +S1, +S2 - GI/Abdominal Exam GI & Abdominal Exam: Normal Bowel Sounds, Soft - Extremities Exam Extremities exam: pedal edema - Neurological Exam Neurological exam: Alert - Psychiatric Exam Psychiatric exam: Normal Affect - Skin Skin Exam: Normal Color Discharge Plan - Discharge Medications Prescriptions: Aspirin [Aspirin Chewable] 81 mg PO DAILY #30 Docusate [Colace] 200 mg PO HS #60 Carvedilol [Coreg] 6.25 mg PO BID #60 tab Rosuvastatin Calcium [Crestor] 20 mg PO HS #30 tab Multivitamin [Multivitamins] 1 each PO DAILY #30 Gabapentin [Neurontin] 100 mg PO HS #30 cap guaiFENesin/Dextromethorphan [Robitussin DM] 10 ml PO Q12 PRN #8 oz PRN Reason: Cough traMADol [Ultram] 50 mg PO Q8 PRN #10 PRN Reason: Pain, Severe (8-10) - Follow Up Plan Condition: STABLE Disposition: HOME/ ROUTINE Instructions: Complete Blenderized Diet (DC), Stroke (DC) Additional Instructions: FOLLOW UP WITH DR Silke RAMIREZ IN THE OFFICE NEXT WEEK---CALL FOR APPT TIME. FOLLOW UP WITH DR. PARIKH, THE NEUROLOGIST, WITHIN 2 WEEKS--CALL FOR APPT TIME. CONTINUE HOME MEDICATIONS USUAL. CONTINUE NEW PRESCRIPTIONS EXACTLY ORDERED. FOR ANY FURTHER QUESTIONS, CONTACT DR. RAMIREZ. Referrals: Jed Bobby MD [Staff Provider] - Drew Johns MD [Staff Provider] - Alexandre Parikh MD [Staff Provider] - Arjun Ramirez MD [Staff Provider] -
== END 2016-09-28 17:30 | disposition home health service (06) | DRG 69 ==
LOC: C.ER 18:07 → C.9E 20:26 → C.6T 09-26 00:04
PROVIDERS: ADMIT Internal Medicine Nephrology; ATTEND Internal Medicine Nephrology
DX: G45.9 Transient cerebral ischemic attack, unspecified (principal); R64 Cachexia; E86.0 Dehydration; F03.90 Unspecified dementia, unspecified severity, without behavioral disturbance, psychotic disturbance, mood disturbance, and anxiety; M43.17 Spondylolisthesis, lumbosacral region; I10 Essential (primary) hypertension; M43.12 Spondylolisthesis, cervical region; E78.5 Hyperlipidemia, unspecified; R68.84 Jaw pain; H54.0 Blindness, both eyes; R47.81 Slurred speech; K21.9 Gastro-esophageal reflux disease without esophagitis; Z85.118 Personal history of other malignant neoplasm of bronchus and lung; M51.37 Other intervertebral disc degeneration, lumbosacral region; M50.30 Other cervical disc degeneration, unspecified cervical region; I77.1 Stricture of artery

== ENCOUNTER 2017-08-14 13:43 | Inpatient (IN) | payer OTHER ==
[2017-08-14 13:45] VITALS: BMI 22.6
[2017-08-14 14:42] LABS: BASO # 0.1 K/uL (0.0-0.2); EOS # 0.4 K/uL (0.0-0.7); EOS % 3.5 % (0.0-4.0); LYMPH # 2.9 K/uL (1.0-4.3); MEAN CELL VOLUME 77.7 fL (81.0-99.0); MEAN CORPUSCULAR HGB CONC 33.4 g/dL (33.0-37.0); MEAN PLATELET VOLUME 6.7 fL (7.2-11.7); MONO % 9.7 % (0.0-10.0); NEUT % 57.8 % (50.0-75.0); NRBC % 0.1 % (0.0-2.0); RED CELL DISTRIBUTION WIDTH 18.5 % (11.5-14.5); WHITE BLOOD COUNT 10.4 K/uL (4.8-10.8)
--- NOTE | 2017-08-14 14:50 | RAD ---
Chest x-ray single frontal view History: Chest pain. Comparison: 02/25/2016 Findings: Complete opacification of the left mike thorax suggestive for collapse and or effusion. Clinical correlation. Right apical pleural thickening. Venous congestion. Few scattered nodular densities in the right upper to mid lung zone with a more prominent nodular density in the right midlung zone laterally. Heart is obscured. Degenerative change in the spine and shoulders. Impression: Complete opacification of the left mike thorax suggestive for collapse and or effusion. Clinical correlation. Right apical pleural thickening. Venous congestion. Few scattered nodular densities in the right upper to mid lung zone with a more prominent nodular density in the right midlung zone laterally. Heart is obscured.
[2017-08-14 14:51] LABS: INR 1.2; PROTHROMBIN TIME 13.2 SECONDS (9.7-12.2)
[2017-08-14 14:56] LABS: SQUAMOUS EPITHIAL < 1 /hpf (0-5); URINE BACTERIA RARE (<OCC); URINE BILIRUBIN NEGATIVE (NEGATIVE); URINE BLOOD 1+ (NEGATIVE); URINE CLARITY Hazy (Clear); URINE COLOR Yellow (YELLOW); URINE GLUCOSE (UA) NORMAL (Normal); URINE LEUKOCYTE ESTERASE 3+ Leu/uL (Negative); URINE PROTEIN NEGATIVE (NEGATIVE); URINE UROBILINOGEN NORMAL mg/dL (0.2-1.0)
[2017-08-14] MEDS ORDERED: Piperacillin/Tazobact 3.375 gm 100 ML IVPB STA (14:56)
[2017-08-14 14:57] LABS: ALB/GLOB RATIO 0.8 (1.0-2.1); ALBUMIN 2.9 g/dL (3.5-5.0); ALT/SGPT 16 U/L (9-52); AST/SGOT 27 U/L (14-36); BLOOD UREA NITROGEN 7 mg/dL (7-17); CALCIUM 8.2 mg/dl (8.6-10.4); GFR AFRICAN-AMERICAN > 60; GFR NON-AFRICAN AMERICAN > 60
--- NOTE | 2017-08-14 15:12 | C.PDOC ---
History Of Present Illness 77 y/o female, w/PMhx of HTN, CVA, and Lung CA presents to the ER for evaluation of generalized weakness and failure to thrive. Of note, HPI is limited because of patient's clinical condition. Patient is not accompanied by a family member. Family members are reportedly on their way to the ER. Time Seen by Provider: 08/14/17 14:25 Chief Complaint (Nursing): Weakness/Neurological Deficit History Per: Patient History/Exam Limitations: clinical condition Onset/Duration Of Symptoms: Days Current Symptoms Are (Timing): Still Present Severity: Moderate Past Medical History Reviewed: Historical Data, Nursing Documentation, Vital Signs Vital Signs: Last Vital Signs Temp 97.9 F 08/17/17 04:15 Pulse 71 08/17/17 04:15 Resp 20 08/17/17 04:15 BP 114/65 08/17/17 04:15 Pulse Ox 99 08/17/17 04:15 - Medical History PMH: Arthritis (NECK DJD), HTN, TIA Denies: Chronic Kidney Disease - [facility] Procedures FIBER-OPTIC BRONCHOSCOPY (07/16/13) INSPECTION OF LARYNX, ENDO (09/20/16) OTHER LOBECTOMY OF LUNG (07/16/13) SIMP EXC LYMPH STRUC NEC (07/16/13) Family History: States: Unknown Family Hx - Social History Hx Tobacco Use: No Hx Alcohol Use: No Hx Substance Use: No - Immunization History Hx Tetanus Toxoid Vaccination: No Hx Influenza Vaccination: No Hx Pneumococcal Vaccination: Yes Review Of Systems Review Of Systems: ROS cannot be obtained secondary to pt's inabilty to answer questions. Physical Exam - Physical Exam Appears: Other (minimal verbal response, tachypneic) Skin: Normal Color, Warm, Dry Head: Atraumatic, Normacephalic Eye(s): bilateral: Normal Inspection Nose: Normal Oral Mucosa: Moist Neck: Supple Chest: Symmetrical Cardiovascular: Rhythm Regular Respiratory: No Rales, No Rhonchi, No Wheezing, Other (tachypneic) Gastrointestinal/Abdominal: Normal Exam, Soft, No Tenderness, No Guarding, No Rebound Extremity: Other (contracted) Neurological/Psych: Other (minimal verbal response, responds to some commands) ED Course And Treatment - Laboratory Results Result Diagrams: 08/14/17 14:37 08/14/17 14:37 - Other Rad CXR X-Ray: Viewed By Me, Read By Radiologist Interpretation: Chest x-ray single frontal view. History: Chest pain. Comparison: 02/25/2016. Findings: Complete opacification of the left mike thorax suggestive for collapse and or effusion. Clinical correlation. Right apical pleural thickening. Venous congestion. Few scattered nodular densities in the right upper to mid lung zone with a more prominent nodular density in the right midlung zone laterally. Heart is obscured. Degenerative change in the spine and shoulders. Impression: Complete opacification of the left mike thorax suggestive for collapse and or effusion. Clinical correlation. Right apical pleural thickening. Venous congestion. Few scattered nodular densities in the right upper to mid lung zone with a more prominent nodular density in the right midlung zone laterally. Heart is obscured. - CT Scan/US CT-Head Other Rad Studies (CT/US): Read By Radiologist, Radiology Report Reviewed CT/US Interpretation: PROCEDURE: CT HEAD WITHOUT CONTRAST. HISTORY: ams. COMPARISON: MRI brain dated 09/26/2016; CT head dated 09/24/2016. TECHNIQUE: Axial computed tomography images were obtained through the head/brain without intravenous contrast. Radiation dose: Total exam DLP = 613.8 mGy-cm. This CT exam was performed using one or more of the following dose reduction techniques : Automated exposure control, adjustment of the mA and/or kV according to patient size, and/or use of iterative reconstruction technique. FINDINGS: HEMORRHAGE: No intracranial hemorrhage. BRAIN: No mass effect or edema. Atrophy. Chronic microvascular ischemic changes. Bilateral basal ganglia lacunar infarctions redemonstrated. VENTRICLES: Unremarkable. No hydrocephalus. CALVARIUM: Unremarkable. PARANASAL SINUSES: Unremarkable as visualized. No significant inflammatory changes. MASTOID AIR CELLS: Minimal dependent right mastoid air cell opacification. OTHER FINDINGS: None. IMPRESSION: No acute intracranial pathology. Age-related changes. Medical Decision Making Medical Decision Making: Plan: --Labs --UA --CXR -- CT-Head --Zosyn IV --Vanocymcin IV Attempt to reach family was unsuccessful.. dr raquel marion arrived shortly after, states baseline for pt. needs admission for failure to thrive. h/o of lung ca. noted cxr similar 1 yr ago suspect malignant effusion will need thoracenetsis inpt. labs neg. empric antibiotics ordered . accpeted dr marion. Disposition - Disposition Disposition: HOSPITALIZED Disposition Time: 07:00 Condition: FAIR - Clinical Impression Clinical Impression: Pleural effusion, Failure to thrive, UTI (urinary tract infection) - Scribe Statement The provider has reviewed the documentation as recorded by the Scribe Parveen Pena Provider Attestation: All medical record entries made by the Scribe were at my direction and personally dictated by me. I have reviewed the chart and agree that the record accurately reflects my personal performance of the history, physical exam, medical decision making, and the department course for this patient. I have also personally directed, reviewed, and agree with the discharge instructions and disposition. Decision To Admit - Pt Status Changed To: Hospital Disposition Of: Inpatient - Admit Certification Admit to Inpatient:: After my assessment, the patient will require hospitalization for at least two midnights. This is because of the severity of symptoms shown, intensity of services needed, and/or the medical risk in this patient being treated as an outpatient. - InPatient: Physician Admission Certification: I certify that this patient requires 2 or more midnights of care for the following reason:: needs thoracentesis. - . Bed Request Type: Telemetry Admitting Physician: Arjun Marion Patient Diagnosis: Pleural effusion, Failure to thrive, UTI (urinary tract infection)
--- NOTE | 2017-08-14 15:30 | CT ---
PROCEDURE: CT HEAD WITHOUT CONTRAST. HISTORY: ams COMPARISON: MRI brain dated 09/26/2016; CT head dated 09/24/2016. TECHNIQUE: Axial computed tomography images were obtained through the head/brain without intravenous contrast. Radiation dose: Total exam DLP = 613.8 mGy-cm. This CT exam was performed using one or more of the following dose reduction techniques: Automated exposure control, adjustment of the mA and/or kV according to patient size, and/or use of iterative reconstruction technique. FINDINGS: HEMORRHAGE: No intracranial hemorrhage. BRAIN: No mass effect or edema. Atrophy. Chronic microvascular ischemic changes. Bilateral basal ganglia lacunar infarctions redemonstrated. VENTRICLES: Unremarkable. No hydrocephalus. CALVARIUM: Unremarkable. PARANASAL SINUSES: Unremarkable as visualized. No significant inflammatory changes. MASTOID AIR CELLS: Minimal dependent right mastoid air cell opacification. OTHER FINDINGS: None. IMPRESSION: No acute intracranial pathology. Age-related changes.
[2017-08-14] MEDS ORDERED: Piperacillin/Tazobact 3.375 gm 100 ML IVPB ONE (15:38)
[2017-08-14] MEDS ORDERED: Vancomycin 1 gm/NS 200 ml 1 GM/200 ML BAG IVPB ONE (17:00)
--- NOTE | 2017-08-14 21:07 | CP.PCM.HP ---
Present on Admission - Present on Admission Any Indicators Present on Admission: No Past Patient History - Infectious Disease Hx of Infectious Diseases: None - Past Medical History & Family History Past Medical History?: Yes - Past Social History Smoking Status: Never Smoked - CARDIAC Hx Hypertension: Yes - PULMONARY Hx Respiratory Disorders: Yes Hx Lung Cancer: Yes - NEUROLOGICAL Hx Transient Ischemic Attacks (TIA): Yes - HEENT Hx HEENT Problems: Yes Hx Cataracts: Yes (EXT RIGHT EYE IOL) - RENAL Hx Chronic Kidney Disease: No - ENDOCRINE/METABOLIC Hx Endocrine Disorders: No - HEMATOLOGICAL/ONCOLOGICAL Hx Blood Disorders: Yes Hx Cancer: Yes (lung) - INTEGUMENTARY Hx Dermatological Problems: No - MUSCULOSKELETAL/RHEUMATOLOGICAL Hx Arthritis: Yes (NECK DJD) - GASTROINTESTINAL Hx Gastrointestinal Disorders: Yes Hx Gastroesophageal Reflux: Yes - GENITOURINARY/GYNECOLOGICAL Hx Genitourinary Disorders: No - PSYCHIATRIC Hx Substance Use: No - SURGICAL HISTORY Hx Surgeries: Yes Hx Cataract Extraction: Yes (RIGHT IOL) Other/Comment: LUNG BX - ANESTHESIA Hx Anesthesia: Yes Hx Anesthesia Reactions: Yes Hx Malignant Hyperthermia: No Meds Allergies/Adverse Reactions: Allergies Allergy/AdvReac Type Severity Reaction Status Date / Time No Known Allergies Allergy Verified 08/14/17 14:30 Physical Exam - Constitutional Appears: Well - Head Exam Head Exam: ATRAUMATIC, NORMAL INSPECTION, NORMOCEPHALIC - Eye Exam Eye Exam: EOMI, Normal appearance, PERRL Pupil Exam: NORMAL ACCOMODATION, PERRL - ENT Exam ENT Exam: Mucous Membranes Moist, Normal Exam - Neck Exam Neck exam: Positive for: Normal Inspection - Respiratory Exam Respiratory Exam: Decreased Breath Sounds - Cardiovascular Exam Cardiovascular Exam: REGULAR RHYTHM, +S1, +S2 - GI/Abdominal Exam GI & Abdominal Exam: Diminished Bowel Sounds, Soft - Rectal Exam Rectal Exam: Deferred Results - Vital Signs Recent Vital Signs: Last Vital Signs Temp 98.9 F 08/14/17 14:47 Pulse 90 08/14/17 19:19 Resp 26 H 08/14/17 19:19 BP 139/65 08/14/17 19:19 Pulse Ox 97 08/14/17 19:19 - Labs Result Diagrams: 08/14/17 14:37 08/14/17 14:37 Labs: Laboratory Results - last 24 hr 08/14/17 08/14/17 08/14/17 14:12 14:37 14:37 WBC 10.4 RBC 5.00 Hgb 13.0 Hct 38.8 MCV 77.7 L D MCH 26.0 L MCHC 33.4 RDW 18.5 H Plt Count 354 MPV 6.7 L Neut % (Auto) 57.8 Lymph % (Auto) 28.0 [place] % (Auto) 9.7 Eos % (Auto) 3.5 Baso % (Auto) 1.0 Neut # (Auto) 6.0 Lymph # (Auto) 2.9 [place] # (Auto) 1.0 H Eos # (Auto) 0.4 Baso # (Auto) 0.1 PT 13.2 H INR 1.2 APTT 35 H Sodium Potassium Chloride Carbon Dioxide Anion Gap BUN Creatinine Est GFR ( Amer) Est GFR (Non-Af Amer) POC Glucose (mg/dL) 103 Random Glucose Calcium Total Bilirubin AST ALT Alkaline Phosphatase Troponin I Total Protein Albumin Globulin Albumin/Globulin Ratio Urine Color Urine Clarity Urine pH Ur Specific [place] Urine Protein Urine Glucose (UA) Urine Ketones Urine Blood Urine Nitrate Urine Bilirubin Urine Urobilinogen Ur Leukocyte Esterase Urine WBC (Auto) Urine RBC (Auto) Ur Squamous Epith Cells Urine Bacteria 08/14/17 08/14/17 14:37 14:37 WBC RBC Hgb Hct MCV MCH MCHC RDW Plt Count MPV Neut % (Auto) Lymph % (Auto) [place] % (Auto) Eos % (Auto) Baso % (Auto) Neut # (Auto) Lymph # (Auto) [place] # (Auto) Eos # (Auto) Baso # (Auto) PT INR APTT Sodium 131 L Potassium 4.3 Chloride 99 Carbon Dioxide 25 Anion Gap 12 BUN 7 Creatinine 0.3 L Est GFR ( Amer) > 60 Est GFR (Non-Af Amer) > 60 POC Glucose (mg/dL) Random Glucose 107 H Calcium 8.2 L Total Bilirubin 0.5 AST 27 ALT 16 Alkaline Phosphatase 126 Troponin I < 0.0120 Total Protein 6.5 Albumin 2.9 L D Globulin 3.7 Albumin/Globulin Ratio 0.8 L Urine Color Yellow Urine Clarity Hazy Urine pH 6.0 Ur Specific [place] 1.005 Urine Protein Negative Urine Glucose (UA) Normal Urine Ketones Negative Urine Blood 1+ H Urine Nitrate Negative Urine Bilirubin Negative Urine Urobilinogen Normal Ur Leukocyte Esterase 3+ H Urine WBC (Auto) 59 H Urine RBC (Auto) 14 H Ur Squamous Epith Cells < 1 Urine Bacteria Rare Assessment & Plan - Assessment and Plan (Free Text) Plan: LabsUA CXR CT-Head Zosyn IV Vanocymcin IV spoke to son pt may need peg as ptis not eating pt is sob and cant talk at home pulm with dr. simpson
[2017-08-14] MEDS ORDERED: guaiFENesin DM 200 mg-20 mg/10 ml UD PO PRN (23:26)
[2017-08-15] MEDS: Piperacill/Tazo 2.25gm in Dex 2.25 GM/50 ML BAG IVPB SCH ×5 (00:56→22:52)
[2017-08-15] MEDS: Multiple Vitamins Tab PO SCH (09:57)
--- NOTE | 2017-08-15 10:59 | CP.PCM.CON ---
History of Present Illness - History of Present Illness History of Present Illness: CHART REVIEWED., PT SEEN AND EXAMINED. 77 YO FEMALE WITH A HX CVA, HTN, LUNG CA, ADM FROM HOME WITH INCREASED MILD SOB AT REST X FEW DAYS, NOT EATING. ?BEDBOUND. PT NONVERBAL. NO FURTHER HX AVAILABLE. Review of Systems - Review of Systems Systems not reviewed;Unavailable: Altered Mental Status All systems: reviewed and no additional remarkable complaints except Past Patient History - Infectious Disease Hx of Infectious Diseases: None - Past Medical History & Family History Past Medical History?: Yes Past Family History: Reviewed and not pertinent - Past Social History Smoking Status: Never Smoked Alcohol: None - CARDIAC Hx Cardiac Disorders: Yes Hx Hypertension: Yes - PULMONARY Hx Respiratory Disorders: Yes Hx Lung Cancer: Yes - NEUROLOGICAL Hx Neurological Disorder: Yes HX Cerebrovascular Accident: Yes Hx Transient Ischemic Attacks (TIA): Yes - HEENT Hx HEENT Problems: Yes Hx Cataracts: Yes (EXT RIGHT EYE IOL) - RENAL Hx Chronic Kidney Disease: No - ENDOCRINE/METABOLIC Hx Endocrine Disorders: No - HEMATOLOGICAL/ONCOLOGICAL Hx Blood Disorders: Yes Hx Cancer: Yes (lung) - INTEGUMENTARY Hx Dermatological Problems: No - MUSCULOSKELETAL/RHEUMATOLOGICAL Hx Musculoskeletal Disorders: Yes Hx Arthritis: Yes Hx Back Pain: Yes Hx Degenerative Joint Disease: Yes Hx Falls: Yes Hx Osteoarthritis: Yes - GASTROINTESTINAL Hx Gastrointestinal Disorders: Yes Hx Gastroesophageal Reflux: Yes - GENITOURINARY/GYNECOLOGICAL Hx Genitourinary Disorders: Yes Hx Urinary Tract Infection: Yes - PSYCHIATRIC Hx Psychophysiologic Disorder: No Hx Substance Use: No - SURGICAL HISTORY Hx Surgeries: Yes Hx Cataract Extraction: Yes (RIGHT IOL) Other/Comment: LUNG BX - ANESTHESIA Hx Anesthesia: Yes Meds Allergies/Adverse Reactions: Allergies Allergy/AdvReac Type Severity Reaction Status Date / Time No Known Allergies Allergy Verified 08/14/17 14:30 - Medications Medications: Current Medications Acetaminophen (Tylenol 325mg Tab) 650 mg PO Q4 PRN PRN Reason: Pain, Mild (1-3) Aspirin (Aspirin Chewable) 81 mg PO DAILY [facility] Last Admin: 08/15/17 09:56 Dose: 81 mg Carvedilol (Coreg) 6.25 mg PO BID [facility] Last Admin: 08/15/17 09:56 Dose: 6.25 mg Docusate Sodium (Colace) 200 mg PO HS [facility] Gabapentin (Neurontin) 100 mg PO HS [facility] Guaifenesin/Dextromethorphan (Robitussin Dm) 10 ml PO Q12 PRN PRN Reason: Cough Heparin Sodium (Porcine) (Heparin) 5,000 units SC Q12 [facility] Last Admin: 08/15/17 09:57 Dose: 5,000 units Piperacillin Sod/Tazobactam Sod (Zosyn 2.25 Gm Iv Premix) 2.25 gm in 50 mls @ 100 mls/hr IVPB Q6H [facility] PRN Reason: Protocol Last Admin: 08/15/17 05:45 Dose: 100 mls/hr Multivitamins (Hexavitamin) 1 tab PO DAILY [facility] Last Admin: 08/15/17 09:57 Dose: 1 tab Pneumococcal Polyvalent Vaccine (Pneumovax 23 Vaccine) 0.5 ml IM .ONCE ONE Stop: 08/16/17 10:01 Rosuvastatin Calcium (Crestor) 20 mg PO HS [facility] Tramadol HCl (Ultram) 50 mg PO Q8 PRN PRN Reason: Pain, severe (8-10) Physical Exam - Constitutional Appears: No Acute Distress, Cachectic, Chronically Ill - Head Exam Head Exam: ATRAUMATIC, NORMOCEPHALIC - Eye Exam Eye Exam: Normal appearance - ENT Exam ENT Exam: Mucous Membranes Dry - Neck Exam Neck exam: Positive for: Normal Inspection. Negative for: Thyromegaly - Respiratory Exam Respiratory Exam: Decreased Breath Sounds. absent: Accessory Muscle Use, Respiratory Distress - Cardiovascular Exam Cardiovascular Exam: RRR, +S1, +S2 - GI/Abdominal Exam GI & Abdominal Exam: Soft - Rectal Exam Rectal Exam: Deferred - Extremities Exam Extremities exam: Negative for: pedal edema - Neurological Exam Additional comments: AWAKE, NON VERBAL. Results - Vital Signs Recent Vital Signs: Last Vital Signs Temp 97.6 F 08/15/17 08:07 Pulse 85 08/15/17 08:07 Resp 18 08/15/17 08:07 BP 137/83 08/15/17 08:07 Pulse Ox 99 08/15/17 08:07 - Labs Result Diagrams: 08/14/17 14:37 08/14/17 14:37 Labs: Laboratory Results - last 24 hr 08/14/17 08/14/17 08/14/17 14:12 14:37 14:37 WBC 10.4 RBC 5.00 Hgb 13.0 Hct 38.8 MCV 77.7 L D MCH 26.0 L MCHC 33.4 RDW 18.5 H Plt Count 354 MPV 6.7 L Neut % (Auto) 57.8 Lymph % (Auto) 28.0 [place] % (Auto) 9.7 Eos % (Auto) 3.5 Baso % (Auto) 1.0 Neut # (Auto) 6.0 Lymph # (Auto) 2.9 [place] # (Auto) 1.0 H Eos # (Auto) 0.4 Baso # (Auto) 0.1 PT 13.2 H INR 1.2 APTT 35 H Sodium Potassium Chloride Carbon Dioxide Anion Gap BUN Creatinine Est GFR ( Amer) Est GFR (Non-Af Amer) POC Glucose (mg/dL) 103 Random Glucose Calcium Total Bilirubin AST ALT Alkaline Phosphatase Troponin I Total Protein Albumin Globulin Albumin/Globulin Ratio Urine Color Urine Clarity Urine pH Ur Specific [place] Urine Protein Urine Glucose (UA) Urine Ketones Urine Blood Urine Nitrate Urine Bilirubin Urine Urobilinogen Ur Leukocyte Esterase Urine WBC (Auto) Urine RBC (Auto) Ur Squamous Epith Cells Urine Bacteria 08/14/17 08/14/17 14:37 14:37 WBC RBC Hgb Hct MCV MCH MCHC RDW Plt Count MPV Neut % (Auto) Lymph % (Auto) [place] % (Auto) Eos % (Auto) Baso % (Auto) Neut # (Auto) Lymph # (Auto) [place] # (Auto) Eos # (Auto) Baso # (Auto) PT INR APTT Sodium 131 L Potassium 4.3 Chloride 99 Carbon Dioxide 25 Anion Gap 12 BUN 7 Creatinine 0.3 L Est GFR ( Amer) > 60 Est GFR (Non-Af Amer) > 60 POC Glucose (mg/dL) Random Glucose 107 H Calcium 8.2 L Total Bilirubin 0.5 AST 27 ALT 16 Alkaline Phosphatase 126 Troponin I < 0.0120 Total Protein 6.5 Albumin 2.9 L D Globulin 3.7 Albumin/Globulin Ratio 0.8 L Urine Color Yellow Urine Clarity Hazy Urine pH 6.0 Ur Specific [place] 1.005 Urine Protein Negative Urine Glucose (UA) Normal Urine Ketones Negative Urine Blood 1+ H Urine Nitrate Negative Urine Bilirubin Negative Urine Urobilinogen Normal Ur Leukocyte Esterase 3+ H Urine WBC (Auto) 59 H Urine RBC (Auto) 14 H Ur Squamous Epith Cells < 1 Urine Bacteria Rare Assessment & Plan (1) Respiratory failure Status: Acute (2) Pneumonia Status: Acute (3) Cachexia Status: Acute (4) Failure to thrive Status: Acute (5) Pleural effusion Status: Acute (6) CVA (cerebral vascular accident) Status: Acute (7) DJD (degenerative joint disease) Status: Acute (8) H/O: lung cancer Status: Acute (9) HTN (hypertension) Status: Acute - Assessment and Plan (Free Text) Assessment: 77 YO FEMALE WITH A HX MULT MED PROBS., ADM WITH DYSPNEA, LEFT OPACIFICATION ? CHRONIC, ON CXR WITH UNDERLYING LUNG CA, POSS PNA AND PLEURAL EFF. , CXR REVIEWED., CT CHEST FOR BETTER EVAL., POSS THORACENTESIS. CONT EMPIRIC AB. PENDING CULT., MONITOR O2 SAT., ON 2L NOW. PULM TOILET., NEB BD., SUCTIONING PRN. SWALLOW EVAL, ASP PRECAUTIONS. GI/DVT PROPHYLAXIS. PROG POOR., DISCUSSED WITH STAFF AT LENGTH.
--- NOTE | 2017-08-15 11:52 | CP.PCM.PN ---
Subjective - Date & Time of Evaluation Date of Evaluation: 08/15/17 Time of Evaluation: 11:00 - Subjective Subjective: clinically same Objective - Vital Signs/Intake and Output Vital Signs (last 24 hours): Temp Pulse Resp BP Pulse Ox 97.6 F 85 18 137/83 99 08/15/17 08:07 08/15/17 08:07 08/15/17 08:07 08/15/17 08:07 08/15/17 08:07 - Medications Medications: Current Medications Acetaminophen (Tylenol 325mg Tab) 650 mg PO Q4 PRN PRN Reason: Pain, Mild (1-3) Albuterol Sulfate (Albuterol 0.083% Inhal [place] (2.5 Mg/3 Ml) Ud) 2.5 mg INH RQ6 [facility] Aspirin (Aspirin Chewable) 81 mg PO DAILY [facility] Last Admin: 08/15/17 09:56 Dose: 81 mg Carvedilol (Coreg) 6.25 mg PO BID [facility] Last Admin: 08/15/17 09:56 Dose: 6.25 mg Docusate Sodium (Colace) 200 mg PO HS [facility] Gabapentin (Neurontin) 100 mg PO HS [facility] Guaifenesin/Dextromethorphan (Robitussin Dm) 10 ml PO Q12 PRN PRN Reason: Cough Heparin Sodium (Porcine) (Heparin) 5,000 units SC Q12 [facility] Last Admin: 08/15/17 09:57 Dose: 5,000 units Piperacillin Sod/Tazobactam Sod (Zosyn 2.25 Gm Iv Premix) 2.25 gm in 50 mls @ 100 mls/hr IVPB Q6H [facility] PRN Reason: Protocol Last Admin: 08/15/17 11:03 Dose: 100 mls/hr Multivitamins (Hexavitamin) 1 tab PO DAILY [facility] Last Admin: 08/15/17 09:57 Dose: 1 tab Pneumococcal Polyvalent Vaccine (Pneumovax 23 Vaccine) 0.5 ml IM .ONCE ONE Stop: 08/16/17 10:01 Rosuvastatin Calcium (Crestor) 20 mg PO HS [facility] Tramadol HCl (Ultram) 50 mg PO Q8 PRN PRN Reason: Pain, severe (8-10) - Labs Labs: 08/14/17 14:37 08/14/17 14:37 PT 13.2 SECONDS (9.7-12.2) H 08/14/17 14:37 INR 1.2 08/14/17 14:37 APTT 35 SECONDS (21-34) H 08/14/17 14:37 - Constitutional Appears: Well - Head Exam Head Exam: ATRAUMATIC, NORMAL INSPECTION, NORMOCEPHALIC - Eye Exam Eye Exam: EOMI, Normal appearance, PERRL Pupil Exam: NORMAL ACCOMODATION, PERRL - ENT Exam ENT Exam: Mucous Membranes Moist, Normal Exam - Neck Exam Neck Exam: Full ROM, Normal Inspection. absent: Lymphadenopathy - Respiratory Exam Respiratory Exam: Decreased Breath Sounds - Cardiovascular Exam Cardiovascular Exam: REGULAR RHYTHM, +S1, +S2 - GI/Abdominal Exam GI & Abdominal Exam: Soft, Diminished Bowel Sounds - Rectal Exam Rectal Exam: Deferred Assessment and Plan - Assessment and Plan (Free Text) Plan: na 131 DuoNeb Patient is not talking much Poor prognosis Patient is on Zosyn Encourage feeding Pulmonary consult Discussed with the family family understands poor outcome
--- NOTE | 2017-08-15 13:28 | CT ---
Date of service: 08/15/2017 PROCEDURE: CT Chest without contrast HISTORY: LUNG CA COMPARISON: None. TECHNIQUE: Contiguous axial images were obtained through the chest without intravenous contrast enhancement. Sagittal and coronal reconstructions were performed. Radiation dose (DLP): 144.7 mGy-cm. This CT exam was performed using one or more of the following dose reduction techniques: Automated exposure control, adjustment of the mA and/or kV according to patient size, and/or use of iterative reconstruction technique. FINDINGS: LUNGS: The patient status post prior left lower lobectomy. There is complete opacification and consolidation of the left lung upper lobe. There is occlusion of the distal left main bronchus by soft tissue mass lesion at the left hilum the which resulting in complete consolidation of the left upper lobe. There is interval appearance of new lesions in the right lung consistent with new metastasis. The largest lesion is seen at the right upper lobe measures 11 millimeter. MEDIASTINUM: The thoracic aorta is ectatic and tortuous. The heart is mildly enlarged. No evidence of pericardial effusion P Main pulmonary artery unremarkable. No vascular congestion. Left hilar lymphadenopathy is noted. PLEURA: There is a trace left pleural effusion. BONES: No fracture. No destructive lesion. UPPER ABDOMEN: Again seen is low-attenuation 2.9 centimeter mass at the right adrenal gland likely represent adenoma. The assessment of the liver for possible metastasis is limited without IV contrast administration. Small to moderate size hiatus hernia is again noted. OTHER FINDINGS: None. IMPRESSION: Interval appearance of large mass lesion at the central left lung and left hilum associated with obstruction of the distal left main bronchus and complete collapse of the left lung upper lobe. Findings suggestive of tumor recurrence. New nodules at the right lung consistent with metastasis.
[2017-08-15] MEDS: Albuterol 0.083% Inhal Sol (2.5 mg/3 mL) UD INH SCH ×2 (14:15→19:54)
[2017-08-16] MEDS: Albuterol 0.083% Inhal Sol (2.5 mg/3 mL) UD INH SCH ×3 (01:04→13:18)
--- NOTE | 2017-08-16 01:08 | CARD ---
APPROVED REPORT Date of service: 08/14/2017 EKG Measurement Heart [id number] <Conclusion> Normal sinus rhythm Left axis deviation Low voltage QRS Inferior infarct, age undetermined Possible Anterolateral infarct, age undetermined Abnormal ECG
[2017-08-16] MEDS: Piperacill/Tazo 2.25gm in Dex 2.25 GM/50 ML BAG IVPB SCH (05:54)
[2017-08-16] MEDS: Multiple Vitamins Tab PO SCH (09:39)
[2017-08-16] MEDS ORDERED: Pneumococcal 23-Valent Vaccine IM ONE ×2 (10:00→12:30)
--- NOTE | 2017-08-16 11:36 | CP.PCM.PN ---
Subjective - Date & Time of Evaluation Date of Evaluation: 08/16/17 Time of Evaluation: 11:32 - Subjective Subjective: PT AWAKE., NONVERBAL NO DISTRESS. ROS ; UNOBTAINABLE. Objective - Vital Signs/Intake and Output Vital Signs (last 24 hours): Temp Pulse Resp BP Pulse Ox 97.5 F L 69 18 132/81 100 08/16/17 07:46 08/16/17 07:46 08/16/17 07:46 08/16/17 07:46 08/16/17 07:46 - Medications Medications: Current Medications Acetaminophen (Tylenol 325mg Tab) 650 mg PO Q4 PRN PRN Reason: Pain, Mild (1-3) Albuterol Sulfate (Albuterol 0.083% Inhal Francisca (2.5 Mg/3 Ml) Ud) 2.5 mg INH RQ6 [facility] Last Admin: 08/16/17 08:02 Dose: 2.5 mg Aspirin (Aspirin Chewable) 81 mg PO DAILY [facility] Last Admin: 08/16/17 09:39 Dose: 81 mg Carvedilol (Coreg) 6.25 mg PO BID [facility] Last Admin: 08/16/17 09:38 Dose: 6.25 mg Docusate Sodium (Colace) 200 mg PO HS [facility] Last Admin: 08/15/17 21:17 Dose: 200 mg Gabapentin (Neurontin) 100 mg PO HS [facility] Last Admin: 08/15/17 21:17 Dose: 100 mg Guaifenesin/Dextromethorphan (Robitussin Dm) 10 ml PO Q12 PRN PRN Reason: Cough Heparin Sodium (Porcine) (Heparin) 5,000 units SC Q12 [facility] Last Admin: 08/16/17 09:39 Dose: 5,000 units Piperacillin Sod/Tazobactam Sod (Zosyn 2.25 Gm Iv Premix) 2.25 gm in 50 mls @ 100 mls/hr IVPB Q6H [facility] PRN Reason: Protocol Last Admin: 08/16/17 05:54 Dose: 100 mls/hr Multivitamins (Hexavitamin) 1 tab PO DAILY [facility] Last Admin: 08/16/17 09:39 Dose: 1 tab Rosuvastatin Calcium (Crestor) 20 mg PO HS [facility] Last Admin: 08/15/17 21:17 Dose: 20 mg Tramadol HCl (Ultram) 50 mg PO Q8 PRN PRN Reason: Pain, severe (8-10) - Labs Labs: 08/14/17 14:37 08/14/17 14:37 PT 13.2 SECONDS (9.7-12.2) H 08/14/17 14:37 INR 1.2 08/14/17 14:37 APTT 35 SECONDS (21-34) H 08/14/17 14:37 - Constitutional Appears: Chronically Ill - Head Exam Head Exam: ATRAUMATIC, NORMOCEPHALIC - Eye Exam Eye Exam: Normal appearance - ENT Exam ENT Exam: Mucous Membranes Dry - Respiratory Exam Respiratory Exam: Decreased Breath Sounds. absent: Accessory Muscle Use - Cardiovascular Exam Cardiovascular Exam: RRR, +S1, +S2 - GI/Abdominal Exam GI & Abdominal Exam: Soft - Extremities Exam Extremities Exam: absent: Pedal Edema - Back Exam Back Exam: absent: rash noted - Neurological Exam Neurological Exam: Awake Additional comments: NONVERBAL - Skin Skin Exam: absent: Rash Assessment and Plan (1) Respiratory failure Status: Acute (2) Pneumonia Status: Acute (3) Cachexia Status: Acute (4) Failure to thrive Status: Acute (5) Pleural effusion Status: Acute (6) CVA (cerebral vascular accident) Status: Acute (7) DJD (degenerative joint disease) Status: Acute (8) H/O: lung cancer Status: Acute (9) HTN (hypertension) Status: Acute - Assessment and Plan (Free Text) Assessment: RESP STATUS NO SIG CHANGE., CONT PULM TOILET., NEB BD., ADEQ OXYGENATION., CXR REVIEWED., CT CHEST REVIEWED +RECURRENT LUNG MASS WITH OBSTRUCTION /PNA. CONT IV AB. ASP PRECAUTIONS, ON PO DIET. PROG GRIM., CONSIDER DNR STATUS. DISCUSSED WITH STAFF AT LENGTH.
[2017-08-16] MEDS: Meropenem 1 GM in Sodium Chloride 0.9% 100 ML IVPB SCH (14:10)
--- NOTE | 2017-08-16 14:12 | CP.PCM.CON ---
History of Present Illness - History of Present Illness History of Present Illness: dictated Past Patient History - Infectious Disease Hx of Infectious Diseases: None - Past Medical History & Family History Past Medical History?: Yes - Past Social History Smoking Status: Never Smoked - CARDIAC Hx Hypertension: Yes - PULMONARY Hx Respiratory Disorders: Yes Hx Lung Cancer: Yes - NEUROLOGICAL Hx Transient Ischemic Attacks (TIA): Yes - HEENT Hx HEENT Problems: Yes Hx Cataracts: Yes (EXT RIGHT EYE IOL) - RENAL Hx Chronic Kidney Disease: No - ENDOCRINE/METABOLIC Hx Endocrine Disorders: No - HEMATOLOGICAL/ONCOLOGICAL Hx Blood Disorders: Yes Hx Cancer: Yes (lung) - INTEGUMENTARY Hx Dermatological Problems: No - MUSCULOSKELETAL/RHEUMATOLOGICAL Hx Arthritis: Yes (NECK DJD) - GASTROINTESTINAL Hx Gastrointestinal Disorders: Yes Hx Gastroesophageal Reflux: Yes - GENITOURINARY/GYNECOLOGICAL Hx Genitourinary Disorders: No - PSYCHIATRIC Hx Substance Use: No - SURGICAL HISTORY Hx Surgeries: Yes Hx Cataract Extraction: Yes (RIGHT IOL) Other/Comment: LUNG BX - ANESTHESIA Hx Anesthesia: Yes Hx Anesthesia Reactions: Yes Hx Malignant Hyperthermia: No Meds Allergies/Adverse Reactions: Allergies Allergy/AdvReac Type Severity Reaction Status Date / Time No Known Allergies Allergy Verified 08/14/17 14:30 - Medications Medications: Current Medications Acetaminophen (Tylenol 325mg Tab) 650 mg PO Q4 PRN PRN Reason: Pain, Mild (1-3) Albuterol Sulfate (Albuterol 0.083% Inhal Francisca (2.5 Mg/3 Ml) Ud) 2.5 mg INH RQ6 [facility] Last Admin: 08/16/17 13:18 Dose: 2.5 mg Aspirin (Aspirin Chewable) 81 mg PO DAILY [facility] Last Admin: 08/16/17 09:39 Dose: 81 mg Carvedilol (Coreg) 6.25 mg PO BID [facility] Last Admin: 08/16/17 09:38 Dose: 6.25 mg Docusate Sodium (Colace) 200 mg PO HS [facility] Last Admin: 08/15/17 21:17 Dose: 200 mg Gabapentin (Neurontin) 100 mg PO HS [facility] Last Admin: 08/15/17 21:17 Dose: 100 mg Guaifenesin/Dextromethorphan (Robitussin Dm) 10 ml PO Q12 PRN PRN Reason: Cough Heparin Sodium (Porcine) (Heparin) 5,000 units SC Q12 [facility] Last Admin: 08/16/17 09:39 Dose: 5,000 units Meropenem 1 gm/ Sodium (Chloride) 100 mls @ 200 mls/hr IVPB Q12H [facility] PRN Reason: Protocol Last Admin: 08/16/17 14:10 Dose: 200 mls/hr Multivitamins (Hexavitamin) 1 tab PO DAILY [facility] Last Admin: 08/16/17 09:39 Dose: 1 tab Rosuvastatin Calcium (Crestor) 20 mg PO HS [facility] Last Admin: 08/15/17 21:17 Dose: 20 mg Tramadol HCl (Ultram) 50 mg PO Q8 PRN PRN Reason: Pain, severe (8-10) Results - Vital Signs Recent Vital Signs: Last Vital Signs Temp 97.5 F L 08/16/17 07:46 Pulse 69 08/16/17 07:46 Resp 18 08/16/17 07:46 BP 132/81 08/16/17 07:46 Pulse Ox 100 08/16/17 07:46 - Labs Result Diagrams: 08/14/17 14:37 08/14/17 14:37
--- NOTE | 2017-08-16 20:48 | CP.PCM.PN ---
Subjective - Date & Time of Evaluation Date of Evaluation: 08/16/17 Time of Evaluation: 10:20 - Subjective Subjective: clinically same Objective - Vital Signs/Intake and Output Vital Signs (last 24 hours): Temp Pulse Resp BP Pulse Ox 98.0 F 90 18 127/82 100 08/16/17 15:18 08/16/17 16:00 08/16/17 15:18 08/16/17 15:18 08/16/17 15:18 - Medications Medications: Current Medications Acetaminophen (Tylenol 325mg Tab) 650 mg PO Q4 PRN PRN Reason: Pain, Mild (1-3) Albuterol Sulfate (Albuterol 0.083% Inhal Francisca (2.5 Mg/3 Ml) Ud) 2.5 mg INH RQ6 [facility] Last Admin: 08/16/17 13:18 Dose: 2.5 mg Aspirin (Aspirin Chewable) 81 mg PO DAILY [facility] Last Admin: 08/16/17 09:39 Dose: 81 mg Carvedilol (Coreg) 6.25 mg PO BID [facility] Last Admin: 08/16/17 17:13 Dose: 6.25 mg Docusate Sodium (Colace) 200 mg PO HS [facility] Last Admin: 08/15/17 21:17 Dose: 200 mg Gabapentin (Neurontin) 100 mg PO HS [facility] Last Admin: 08/15/17 21:17 Dose: 100 mg Guaifenesin/Dextromethorphan (Robitussin Dm) 10 ml PO Q12 PRN PRN Reason: Cough Heparin Sodium (Porcine) (Heparin) 5,000 units SC Q12 [facility] Last Admin: 08/16/17 09:39 Dose: 5,000 units Meropenem 1 gm/ Sodium (Chloride) 100 mls @ 200 mls/hr IVPB Q12H [facility] PRN Reason: Protocol Last Admin: 08/16/17 14:10 Dose: 200 mls/hr Multivitamins (Hexavitamin) 1 tab PO DAILY [facility] Last Admin: 08/16/17 09:39 Dose: 1 tab Rosuvastatin Calcium (Crestor) 20 mg PO HS [facility] Last Admin: 08/15/17 21:17 Dose: 20 mg Tramadol HCl (Ultram) 50 mg PO Q8 PRN PRN Reason: Pain, severe (8-10) Last Admin: 08/16/17 17:10 Dose: 50 mg - Labs Labs: 08/14/17 14:37 08/14/17 14:37 PT 13.2 SECONDS (9.7-12.2) H 08/14/17 14:37 INR 1.2 08/14/17 14:37 APTT 35 SECONDS (21-34) H 08/14/17 14:37 - Constitutional Appears: Well - Head Exam Head Exam: ATRAUMATIC, NORMAL INSPECTION, NORMOCEPHALIC - Eye Exam Eye Exam: EOMI, Normal appearance, PERRL Pupil Exam: NORMAL ACCOMODATION, PERRL - ENT Exam ENT Exam: Mucous Membranes Moist, Normal Exam - Neck Exam Neck Exam: Full ROM, Normal Inspection. absent: Lymphadenopathy - Respiratory Exam Respiratory Exam: Decreased Breath Sounds - Cardiovascular Exam Cardiovascular Exam: REGULAR RHYTHM, +S1, +S2 - GI/Abdominal Exam GI & Abdominal Exam: Soft, Diminished Bowel Sounds - Rectal Exam Rectal Exam: Deferred
[2017-08-16] MEDS: Vancomycin 1 gm/NS 200 ml 1 GM/200 ML BAG IVPB SCH (21:55)
[2017-08-17] MEDS: Meropenem 1 GM in Sodium Chloride 0.9% 100 ML IVPB SCH ×2 (01:24→13:42)
[2017-08-17] MEDS: Albuterol 0.083% Inhal Sol (2.5 mg/3 mL) UD INH SCH ×4 (01:28→19:17)
--- NOTE | 2017-08-17 08:43 | CON ---
DATE: 08/16/2017 INFECTIOUS DISEASE CONSULT REQUESTED BY: Jasmyn Ramirez MD HISTORY OF PRESENT ILLNESS: This patient is a 77-year-old female. She came from home. She has history of hypertension, CVA, and lung cancer. She was brought from home because of generalized weakness and failure to thrive. The patient was also seen by Pulmonary, and I am asked to evaluate her as her urine culture came out ESBL-positive and she will need isolation. The patient speaks [place], but I was able to understand some dialect of [place]. She is not allergic to any medicine. Past medical history is significant for hypertension, CVA, and lung cancer. She has also had coronary artery disease. This patient was brought in with weakness and possible neurological deficits. She has been weak and frail, and was admitted, and she is not allergic to any medicine. She was awake when I went there, but she was telling me that she came here because her son started to work and [id number] is working, and she denied any chest pain. No shortness of breath. Denies any abdominal pain. No nausea, no vomiting. She was trying to eat orange, probably she was hungry and denied any urinary symptoms. She wanted to go to the bathroom, but since she came with syncope and altered mental status, she is not able to get off the bed. PAST MEDICAL HISTORY: Significant for arthritis, hypertension, TIA, chronic kidney disease. PAST SURGICAL HISTORY: Significant for lobectomy of lung in 2013. She also had simple excision of lymph nodes in 2013, and had a fiberoptic bronchoscopy done in 2013. FAMILY HISTORY: Noncontributory. SOCIAL HISTORY: Negative for smoking or drinking, or any drug abuse. REVIEW OF SYSTEMS: She has had pneumococcal vaccination in the past. She was not answering much when she came to the ER and had minimal verbal response and was tachypneic in the ER. When I am talking to her, she is not having any shortness of breath or any respiratory problems. She denied any pain. Denied any headache. Denies ear, nose, or throat problems. Does not complain of any trouble breathing and is more awake and alert at this time. Denies any urinary complaints. No nausea, no vomiting, no diarrhea, but she does have poor appetite. It seems like she was hungry though, and on her medications. ALLERGIES: SHE IS NOT ALLERGIC TO ANY OF HER MEDICATIONS. MEDICATIONS: Tylenol, albuterol nebulizer, aspirin, Coreg, Colace, gabapentin, guaifenesin, heparin, meropenem 1 gm every 12 hours she is on, which was started after we got that. She was on Zosyn before, multivitamin. She is on Crestor and tramadol. PHYSICAL EXAMINATION: VITAL SIGNS: I find her temperature is 98, pulse 92, blood pressure 127/82, and respirations are 18. HEENT: Head is atraumatic, normocephalic. Pallor present. Eye movements are unremarkable. Tongue was dry. NECK: Supple. JVP is flat. LUNGS: There were decreased breath sounds in right lung. Left lung was unremarkable. HEART: S1, S2 are regular. ABDOMEN: Soft, nontender. No guarding, no rigidity present. EXTREMITIES: No edema, clubbing, or cyanosis. LABORATORY DATA: White count on 08/14/2017 was 10.4, hemoglobin 13, hematocrit 38.8, platelet count is 354. Creatinine is 0.3. INR was 1.2. Glucose was 107. AST, ALT are unremarkable. Albumin is 2.9. UA has 3+ leukocytes, wbc 59, so she does have a UTI and she also had a chest x-ray when she came in, and the chest x-ray showed right apical pleural thickening, venous congestion, few scattered nodule densities in the right upper to mid lung zone with a more prominent nodular density in the right mid lung zone laterally. Heart is obscured, and it showed complete opacification of the left lung suggestive of collapse or an effusion. At this time, she also has had a chest CT and reports are in. The chest CT showed interval appearance of a large mass lesion in the central left lung and left hilum associated with obstruction of the distal left main bronchus and complete collapse of the left lung upper lobe. Findings suggestive of tumor recurrence, new nodules of right lung consistent with metastasis. So it seems like she has recurrence of tumor, of lung mass which is causing obstruction and causing left complete collapse of the left lung upper lobe, and findings are suggestive of tumor recurrence and there are new nodules in the right lung consistent with metastasis. It seems like both lungs are involved. So at this time, the patient is admitted with failure to thrive and altered mental status. X-ray had left lung opacification. Her CT head showed no acute intracranial pathology. She also has a UTI, so we will follow with Pulmonary. Right now, I did put her on Merrem, and I would add vancomycin to the present treatment, so that if there is any obstructive pneumonia, that would get better, and we will follow with Pulmonary. Her prognosis is guarded as she has recurrence of the tumor as well as it is also seen on the other lung, some nodules suggestive of mets. We will follow with Dr. Jasmyn Ramirez. Adamaris Jordan MD
[2017-08-17] MEDS: Multiple Vitamins Tab PO SCH (10:07)
--- NOTE | 2017-08-17 11:53 | CP.PCM.PN ---
Subjective - Date & Time of Evaluation Date of Evaluation: 08/17/17 Time of Evaluation: 11:50 - Subjective Subjective: PT MORE AWAKE., DAUGHTER FEEDING HER., NO COUGH., NO SOB. ROS; UNOBTAINABLE Objective - Vital Signs/Intake and Output Vital Signs (last 24 hours): Temp Pulse Resp BP Pulse Ox 97.9 F 72 20 117/64 100 08/17/17 07:59 08/17/17 07:59 08/17/17 07:59 08/17/17 07:59 08/17/17 07:59 Intake and Output: 08/17/17 08/17/17 06:59 18:59 Intake Total 260 Balance 260 - Medications Medications: Current Medications Acetaminophen (Tylenol 325mg Tab) 650 mg PO Q4 PRN PRN Reason: Pain, Mild (1-3) Albuterol Sulfate (Albuterol 0.083% Inhal Francisca (2.5 Mg/3 Ml) Ud) 2.5 mg INH RQ6 [facility] Last Admin: 08/17/17 07:37 Dose: 2.5 mg Aspirin (Aspirin Chewable) 81 mg PO DAILY [facility] Last Admin: 08/17/17 10:48 Dose: 81 mg Carvedilol (Coreg) 6.25 mg PO BID [facility] Last Admin: 08/17/17 10:48 Dose: 6.25 mg Docusate Sodium (Colace) 200 mg PO HS [facility] Last Admin: 08/16/17 21:56 Dose: 200 mg Gabapentin (Neurontin) 100 mg PO HS [facility] Last Admin: 08/16/17 21:56 Dose: 100 mg Guaifenesin/Dextromethorphan (Robitussin Dm) 10 ml PO Q12 PRN PRN Reason: Cough Heparin Sodium (Porcine) (Heparin) 5,000 units SC Q12 [facility] Last Admin: 08/17/17 10:06 Dose: 5,000 units Meropenem 1 gm/ Sodium (Chloride) 100 mls @ 200 mls/hr IVPB Q12H [facility] PRN Reason: Protocol Last Admin: 08/17/17 01:24 Dose: 200 mls/hr Vancomycin/Sodium Chloride (Vancomycin 1 Gm/Ns 200 Ml) 1 gm in 200 mls @ 133.333 mls/hr IVPB Q24H [facility] PRN Reason: Protocol Stop: 08/21/17 22:01 Last Admin: 08/16/17 21:55 Dose: 133.333 mls/hr Multivitamins (Hexavitamin) 1 tab PO DAILY [facility] Last Admin: 08/17/17 10:07 Dose: Not Given Rosuvastatin Calcium (Crestor) 20 mg PO HS [facility] Last Admin: 08/16/17 21:56 Dose: 20 mg Tramadol HCl (Ultram) 50 mg PO Q8 PRN PRN Reason: Pain, severe (8-10) Last Admin: 08/16/17 17:10 Dose: 50 mg - Labs Labs: 08/14/17 14:37 08/14/17 14:37 PT 13.2 SECONDS (9.7-12.2) H 08/14/17 14:37 INR 1.2 08/14/17 14:37 APTT 35 SECONDS (21-34) H 08/14/17 14:37 - Constitutional Appears: No Acute Distress, Chronically Ill - Head Exam Head Exam: ATRAUMATIC, NORMOCEPHALIC - Eye Exam Eye Exam: EOMI, Normal appearance - ENT Exam ENT Exam: Mucous Membranes Moist - Neck Exam Neck Exam: Normal Inspection - Respiratory Exam Respiratory Exam: Decreased Breath Sounds. absent: Accessory Muscle Use, Respiratory Distress - Cardiovascular Exam Cardiovascular Exam: RRR, +S1, +S2 - GI/Abdominal Exam GI & Abdominal Exam: Soft. absent: Tenderness - Rectal Exam Rectal Exam: Deferred - Extremities Exam Extremities Exam: absent: Calf Tenderness, Pedal Edema - Back Exam Back Exam: absent: CVA tenderness (L), CVA tenderness (R) - Neurological Exam Neurological Exam: Awake. absent: Oriented x3 - Skin Skin Exam: absent: Rash Assessment and Plan (1) Respiratory failure Status: Acute (2) Pneumonia Status: Acute (3) Cachexia Status: Acute (4) Failure to thrive Status: Acute (5) Pleural effusion Status: Acute (6) CVA (cerebral vascular accident) Status: Acute (7) DJD (degenerative joint disease) Status: Acute (8) H/O: lung cancer Status: Acute (9) HTN (hypertension) Status: Acute - Assessment and Plan (Free Text) Assessment: RESP STATUS UNLABORED., CONT PULM TOILET., NEB BD., CT CHEST REVIEWED, +LUNG CA RECURRENCE WITH POST-OBST PNA. CONT IV AB PER ID., ASP PRECAUTIONS.,CONSIDER DNR STATUS. PROG GRIM., DISCUSSED WITH STAFF AND DAUGHTER AT BEDSIDE.
--- NOTE | 2017-08-17 14:24 | CP.PCM.PN ---
Subjective - Date & Time of Evaluation Date of Evaluation: 08/17/17 Time of Evaluation: 01:30 - Subjective Subjective: dictated Objective - Vital Signs/Intake and Output Vital Signs (last 24 hours): Temp Pulse Resp BP Pulse Ox 97.9 F 72 20 117/64 100 08/17/17 07:59 08/17/17 07:59 08/17/17 07:59 08/17/17 07:59 08/17/17 07:59 Intake and Output: 08/17/17 08/17/17 06:59 18:59 Intake Total 260 Balance 260 - Medications Medications: Current Medications Acetaminophen (Tylenol 325mg Tab) 650 mg PO Q4 PRN PRN Reason: Pain, Mild (1-3) Albuterol Sulfate (Albuterol 0.083% Inhal Francisca (2.5 Mg/3 Ml) Ud) 2.5 mg INH RQ6 [facility] Last Admin: 08/17/17 07:37 Dose: 2.5 mg Aspirin (Aspirin Chewable) 81 mg PO DAILY [facility] Last Admin: 08/17/17 10:48 Dose: 81 mg Carvedilol (Coreg) 6.25 mg PO BID [facility] Last Admin: 08/17/17 10:48 Dose: 6.25 mg Docusate Sodium (Colace) 200 mg PO HS [facility] Last Admin: 08/16/17 21:56 Dose: 200 mg Gabapentin (Neurontin) 100 mg PO HS [facility] Last Admin: 08/16/17 21:56 Dose: 100 mg Guaifenesin/Dextromethorphan (Robitussin Dm) 10 ml PO Q12 PRN PRN Reason: Cough Heparin Sodium (Porcine) (Heparin) 5,000 units SC Q12 [facility] Last Admin: 08/17/17 10:06 Dose: 5,000 units Meropenem 1 gm/ Sodium (Chloride) 100 mls @ 200 mls/hr IVPB Q12H [facility] PRN Reason: Protocol Last Admin: 08/17/17 13:42 Dose: 200 mls/hr Vancomycin/Sodium Chloride (Vancomycin 1 Gm/Ns 200 Ml) 1 gm in 200 mls @ 133.333 mls/hr IVPB Q24H [facility] PRN Reason: Protocol Stop: 08/21/17 22:01 Last Admin: 08/16/17 21:55 Dose: 133.333 mls/hr Multivitamins (Hexavitamin) 1 tab PO DAILY [facility] Last Admin: 08/17/17 10:07 Dose: Not Given Rosuvastatin Calcium (Crestor) 20 mg PO HS [facility] Last Admin: 08/16/17 21:56 Dose: 20 mg Tramadol HCl (Ultram) 50 mg PO Q8 PRN PRN Reason: Pain, severe (8-10) Last Admin: 08/16/17 17:10 Dose: 50 mg - Labs Labs: 08/14/17 14:37 08/14/17 14:37 PT 13.2 SECONDS (9.7-12.2) H 08/14/17 14:37 INR 1.2 08/14/17 14:37 APTT 35 SECONDS (21-34) H 08/14/17 14:37
--- NOTE | 2017-08-17 14:25 | CP.PCM.PN ---
Subjective - Date & Time of Evaluation Date of Evaluation: 08/17/17 Time of Evaluation: 11:00 - Subjective Subjective: clinically same Objective - Vital Signs/Intake and Output Vital Signs (last 24 hours): Temp Pulse Resp BP Pulse Ox 97.9 F 72 20 117/64 100 08/17/17 07:59 08/17/17 07:59 08/17/17 07:59 08/17/17 07:59 08/17/17 07:59 Intake and Output: 08/17/17 08/17/17 06:59 18:59 Intake Total 260 Balance 260 - Medications Medications: Current Medications Acetaminophen (Tylenol 325mg Tab) 650 mg PO Q4 PRN PRN Reason: Pain, Mild (1-3) Albuterol Sulfate (Albuterol 0.083% Inhal Francisca (2.5 Mg/3 Ml) Ud) 2.5 mg INH RQ6 [facility] Last Admin: 08/17/17 07:37 Dose: 2.5 mg Aspirin (Aspirin Chewable) 81 mg PO DAILY [facility] Last Admin: 08/17/17 10:48 Dose: 81 mg Carvedilol (Coreg) 6.25 mg PO BID [facility] Last Admin: 08/17/17 10:48 Dose: 6.25 mg Docusate Sodium (Colace) 200 mg PO HS [facility] Last Admin: 08/16/17 21:56 Dose: 200 mg Gabapentin (Neurontin) 100 mg PO HS [facility] Last Admin: 08/16/17 21:56 Dose: 100 mg Guaifenesin/Dextromethorphan (Robitussin Dm) 10 ml PO Q12 PRN PRN Reason: Cough Heparin Sodium (Porcine) (Heparin) 5,000 units SC Q12 [facility] Last Admin: 08/17/17 10:06 Dose: 5,000 units Meropenem 1 gm/ Sodium (Chloride) 100 mls @ 200 mls/hr IVPB Q12H [facility] PRN Reason: Protocol Last Admin: 08/17/17 13:42 Dose: 200 mls/hr Vancomycin/Sodium Chloride (Vancomycin 1 Gm/Ns 200 Ml) 1 gm in 200 mls @ 133.333 mls/hr IVPB Q24H [facility] PRN Reason: Protocol Stop: 08/21/17 22:01 Last Admin: 08/16/17 21:55 Dose: 133.333 mls/hr Multivitamins (Hexavitamin) 1 tab PO DAILY [facility] Last Admin: 08/17/17 10:07 Dose: Not Given Rosuvastatin Calcium (Crestor) 20 mg PO HS [facility] Last Admin: 08/16/17 21:56 Dose: 20 mg Tramadol HCl (Ultram) 50 mg PO Q8 PRN PRN Reason: Pain, severe (8-10) Last Admin: 08/16/17 17:10 Dose: 50 mg - Labs Labs: 08/14/17 14:37 08/14/17 14:37 PT 13.2 SECONDS (9.7-12.2) H 08/14/17 14:37 INR 1.2 08/14/17 14:37 APTT 35 SECONDS (21-34) H 08/14/17 14:37 - Constitutional Appears: Well - Head Exam Head Exam: ATRAUMATIC, NORMAL INSPECTION, NORMOCEPHALIC - Eye Exam Eye Exam: EOMI, Normal appearance, PERRL Pupil Exam: NORMAL ACCOMODATION, PERRL - ENT Exam ENT Exam: Mucous Membranes Moist, Normal Exam - Neck Exam Neck Exam: Full ROM, Normal Inspection. absent: Lymphadenopathy - Respiratory Exam Respiratory Exam: Decreased Breath Sounds - Cardiovascular Exam Cardiovascular Exam: REGULAR RHYTHM, +S1, +S2 - GI/Abdominal Exam GI & Abdominal Exam: Soft, Diminished Bowel Sounds - Rectal Exam Rectal Exam: Deferred
--- NOTE | 2017-08-17 19:03 | PN ---
DATE: 08/17/2017 SUBJECTIVE: Today I find her very drowsy and she is in isolation as her urine was ESBL urine and she was seen by the Pulmonary before and she was awake at that time, so maybe she is sleeping at . PHYSICAL EXAMINATION: VITAL SIGNS: T max is 97.9, pulse 72, blood pressure is 117/64, respirations are 20. GENERAL: She is a thin, cachectic female. HEENT: Head is atraumatic. NECK: Supple. LUNGS: Decreased breath sounds on left lung, right lung also has decreased breath sounds. HEART: S1, S2 is regular. ABDOMEN: Soft, nontender. No guarding. No rigidity present. EXTREMITIES: No edema. She is thin and frail and she has a UTI and the cultures grew ESBL. Blood cultures are negative and I am going to repeat the labs tomorrow as there is no labs today and I saw the CT scan report, which shows left lung opacification and metastatic disease to the other lung and also prognosis is guarded. I am covering for any obstructive pneumonia and UTI at this time and we will follow. Prognosis remains guarded. Adamaris Jordan MD
[2017-08-17] MEDS: Vancomycin 1 gm/NS 200 ml 1 GM/200 ML BAG IVPB SCH (21:10)
[2017-08-18] MEDS: Albuterol 0.083% Inhal Sol (2.5 mg/3 mL) UD INH SCH ×4 (01:35→19:49)
[2017-08-18] MEDS: Meropenem 1 GM in Sodium Chloride 0.9% 100 ML IVPB SCH ×2 (01:47→13:54)
[2017-08-18 07:59] LABS: BASO # 0.1 K/uL (0.0-0.2); BASO % 0.4 % (0.0-2.0); EOS % 0.2 % (0.0-4.0); HEMOGLOBIN 12.4 g/dL (11.0-16.0); LYMPH # 2.5 K/uL (1.0-4.3); LYMPH % 12.1 % (20.0-40.0); MEAN CELL VOLUME 78.7 fL (81.0-99.0); MEAN CORPUSCULAR HGB CONC 33.1 g/dL (33.0-37.0); MEAN PLATELET VOLUME 7.2 fL (7.2-11.7); MONO # 1.8 K/uL (0.0-0.8); MONO % 8.7 % (0.0-10.0); NEUT # 16.5 K/uL (1.8-7.0); NEUT % 78.6 % (50.0-75.0); RBC 4.77 Mil/uL (3.80-5.20); RED CELL DISTRIBUTION WIDTH 18.8 % (11.5-14.5)
[2017-08-18 08:16] LABS: ALB/GLOB RATIO 0.8 (1.0-2.1); ALBUMIN 2.6 g/dL (3.5-5.0); ALT/SGPT 16 U/L (9-52); AST/SGOT 73 U/L (14-36); BLOOD UREA NITROGEN 19 mg/dL (7-17); CALCIUM 8.9 mg/dl (8.6-10.4); GFR AFRICAN-AMERICAN > 60; GFR NON-AFRICAN AMERICAN > 60
[2017-08-18] MEDS: Multiple Vitamins Tab PO SCH (10:25)
--- NOTE | 2017-08-18 11:52 | CP.PCM.PN ---
Subjective - Date & Time of Evaluation Date of Evaluation: 08/18/17 Time of Evaluation: 11:48 - Subjective Subjective: PT AWAKE, BEING FED BY DAUGHTER. NO DISTRESS. PT NONVERBAL. ROS; UNOBTAINABLE. Objective - Vital Signs/Intake and Output Vital Signs (last 24 hours): Temp Pulse Resp BP Pulse Ox 98.4 F 72 20 123/74 99 08/18/17 07:00 08/18/17 07:00 08/18/17 07:00 08/18/17 07:00 08/18/17 07:00 Intake and Output: 08/18/17 08/18/17 06:59 18:59 Intake Total 320 Balance 320 - Medications Medications: Current Medications Acetaminophen (Tylenol 325mg Tab) 650 mg PO Q4 PRN PRN Reason: Pain, Mild (1-3) Albuterol Sulfate (Albuterol 0.083% Inhal Francisca (2.5 Mg/3 Ml) Ud) 2.5 mg INH RQ6 [facility] Last Admin: 08/18/17 07:23 Dose: 2.5 mg Aspirin (Aspirin Chewable) 81 mg PO DAILY [facility] Last Admin: 08/18/17 10:25 Dose: 81 mg Carvedilol (Coreg) 6.25 mg PO BID [facility] Last Admin: 08/18/17 10:25 Dose: 6.25 mg Docusate Sodium (Colace) 200 mg PO HS [facility] Last Admin: 08/17/17 21:10 Dose: 200 mg Gabapentin (Neurontin) 100 mg PO HS [facility] Last Admin: 08/17/17 21:10 Dose: 100 mg Guaifenesin/Dextromethorphan (Robitussin Dm) 10 ml PO Q12 PRN PRN Reason: Cough Meropenem 1 gm/ Sodium (Chloride) 100 mls @ 200 mls/hr IVPB Q12H [facility] PRN Reason: Protocol Last Admin: 08/18/17 01:47 Dose: 200 mls/hr Vancomycin/Sodium Chloride (Vancomycin 1 Gm/Ns 200 Ml) 1 gm in 200 mls @ 133.333 mls/hr IVPB Q24H [facility] PRN Reason: Protocol Stop: 08/21/17 22:01 Last Admin: 08/17/17 21:10 Dose: 133.333 mls/hr Multivitamins (Hexavitamin) 1 tab PO DAILY [facility] Last Admin: 08/18/17 10:25 Dose: 1 tab Rosuvastatin Calcium (Crestor) 20 mg PO HS [facility] Last Admin: 08/17/17 21:10 Dose: 20 mg Tramadol HCl (Ultram) 50 mg PO Q8 PRN PRN Reason: Pain, severe (8-10) Last Admin: 08/16/17 17:10 Dose: 50 mg - Labs Labs: 08/18/17 07:44 08/18/17 07:44 PT 13.2 SECONDS (9.7-12.2) H 08/14/17 14:37 INR 1.2 08/14/17 14:37 APTT 35 SECONDS (21-34) H 08/14/17 14:37 - Constitutional Appears: Chronically Ill - Head Exam Head Exam: ATRAUMATIC, NORMOCEPHALIC - Eye Exam Eye Exam: Normal appearance. absent: Scleral icterus - ENT Exam ENT Exam: Mucous Membranes Moist - Neck Exam Neck Exam: Normal Inspection - Respiratory Exam Respiratory Exam: Decreased Breath Sounds. absent: Accessory Muscle Use, Wheezes, Respiratory Distress - Cardiovascular Exam Cardiovascular Exam: RRR, +S1, +S2 - GI/Abdominal Exam GI & Abdominal Exam: Soft - Rectal Exam Rectal Exam: Deferred - Extremities Exam Extremities Exam: absent: Pedal Edema - Back Exam Back Exam: absent: CVA tenderness (L), CVA tenderness (R) - Neurological Exam Neurological Exam: Awake Additional comments: NONVERBAL. - Skin Skin Exam: absent: Rash Assessment and Plan (1) Respiratory failure Status: Acute (2) Pneumonia Status: Acute (3) Cachexia Status: Acute (4) Failure to thrive Status: Acute (5) Pleural effusion Status: Acute (6) CVA (cerebral vascular accident) Status: Acute (7) DJD (degenerative joint disease) Status: Acute (8) H/O: lung cancer Status: Acute (9) HTN (hypertension) Status: Acute - Assessment and Plan (Free Text) Assessment: RESP STATUS UNLABORED., CONT IV AB. PULM TOILET., NEB BD., ADEQ OXYGENATION., ASP PRECAUTIONS. CXR REVIEWED. PROG GRIM, END STAGE LUNG CA. CONSIDER DNR DISCUSSION. DISCUSSED WITH STAFF AND DAUGHTER AT BEDSIDE.
--- NOTE | 2017-08-18 17:16 | CP.PCM.PN ---
Subjective - Date & Time of Evaluation Date of Evaluation: 08/18/17 Time of Evaluation: 03:25 - Subjective Subjective: dictated Objective - Vital Signs/Intake and Output Vital Signs (last 24 hours): Temp Pulse Resp BP Pulse Ox 98.3 F 88 20 116/80 99 08/18/17 17:00 08/18/17 17:00 08/18/17 17:00 08/18/17 17:00 08/18/17 17:00 Intake and Output: 08/18/17 08/18/17 06:59 18:59 Intake Total 320 Balance 320 - Medications Medications: Current Medications Acetaminophen (Tylenol 325mg Tab) 650 mg PO Q4 PRN PRN Reason: Pain, Mild (1-3) Albuterol Sulfate (Albuterol 0.083% Inhal Francisca (2.5 Mg/3 Ml) Ud) 2.5 mg INH RQ6 [facility] Last Admin: 08/18/17 13:21 Dose: 2.5 mg Aspirin (Aspirin Chewable) 81 mg PO DAILY [facility] Last Admin: 08/18/17 10:25 Dose: 81 mg Carvedilol (Coreg) 6.25 mg PO BID [facility] Last Admin: 08/18/17 10:25 Dose: 6.25 mg Docusate Sodium (Colace) 200 mg PO HS [facility] Last Admin: 08/17/17 21:10 Dose: 200 mg Gabapentin (Neurontin) 100 mg PO HS [facility] Last Admin: 08/17/17 21:10 Dose: 100 mg Guaifenesin/Dextromethorphan (Robitussin Dm) 10 ml PO Q12 PRN PRN Reason: Cough Meropenem 1 gm/ Sodium (Chloride) 100 mls @ 200 mls/hr IVPB Q12H [facility] PRN Reason: Protocol Last Admin: 08/18/17 13:54 Dose: 200 mls/hr Vancomycin/Sodium Chloride (Vancomycin 1 Gm/Ns 200 Ml) 1 gm in 200 mls @ 133.333 mls/hr IVPB Q24H [facility] PRN Reason: Protocol Stop: 08/21/17 22:01 Last Admin: 08/17/17 21:10 Dose: 133.333 mls/hr Multivitamins (Hexavitamin) 1 tab PO DAILY [facility] Last Admin: 08/18/17 10:25 Dose: 1 tab Rosuvastatin Calcium (Crestor) 20 mg PO [facility] Last Admin: 08/17/17 21:10 Dose: 20 mg Tramadol HCl (Ultram) 50 mg PO Q8 PRN PRN Reason: Pain, severe (8-10) Last Admin: 08/16/17 17:10 Dose: 50 mg - Labs Labs: 08/18/17 07:44 08/18/17 07:44 PT 13.2 SECONDS (9.7-12.2) H 08/14/17 14:37 INR 1.2 08/14/17 14:37 APTT 35 SECONDS (21-34) H 08/14/17 14:37
--- NOTE | 2017-08-18 20:42 | CP.PCM.PN ---
Subjective - Date & Time of Evaluation Date of Evaluation: 08/18/17 Time of Evaluation: 11:45 - Subjective Subjective: clinically same Objective - Vital Signs/Intake and Output Vital Signs (last 24 hours): Temp Pulse Resp BP Pulse Ox 98.3 F 88 20 116/80 99 08/18/17 17:00 08/18/17 17:00 08/18/17 17:00 08/18/17 17:00 08/18/17 17:00 - Medications Medications: Current Medications Acetaminophen (Tylenol 325mg Tab) 650 mg PO Q4 PRN PRN Reason: Pain, Mild (1-3) Albuterol Sulfate (Albuterol 0.083% Inhal Francisca (2.5 Mg/3 Ml) Ud) 2.5 mg INH RQ6 [facility] Last Admin: 08/18/17 19:49 Dose: 2.5 mg Aspirin (Aspirin Chewable) 81 mg PO DAILY [facility] Last Admin: 08/18/17 10:25 Dose: 81 mg Carvedilol (Coreg) 6.25 mg PO BID [facility] Last Admin: 08/18/17 18:22 Dose: 6.25 mg Docusate Sodium (Colace) 200 mg PO HS [facility] Last Admin: 08/17/17 21:10 Dose: 200 mg Gabapentin (Neurontin) 100 mg PO HS [facility] Last Admin: 08/17/17 21:10 Dose: 100 mg Guaifenesin/Dextromethorphan (Robitussin Dm) 10 ml PO Q12 PRN PRN Reason: Cough Meropenem 1 gm/ Sodium (Chloride) 100 mls @ 200 mls/hr IVPB Q12H [facility] PRN Reason: Protocol Last Admin: 08/18/17 13:54 Dose: 200 mls/hr Vancomycin/Sodium Chloride (Vancomycin 1 Gm/Ns 200 Ml) 1 gm in 200 mls @ 133.333 mls/hr IVPB Q24H [facility] PRN Reason: Protocol Stop: 08/21/17 22:01 Last Admin: 08/17/17 21:10 Dose: 133.333 mls/hr Multivitamins (Hexavitamin) 1 tab PO DAILY [facility] Last Admin: 08/18/17 10:25 Dose: 1 tab Rosuvastatin Calcium (Crestor) 20 mg PO HS [facility] Last Admin: 08/17/17 21:10 Dose: 20 mg Tramadol HCl (Ultram) 50 mg PO Q8 PRN PRN Reason: Pain, severe (8-10) Last Admin: 08/16/17 17:10 Dose: 50 mg - Labs Labs: 08/18/17 07:44 08/18/17 07:44 PT 13.2 SECONDS (9.7-12.2) H 08/14/17 14:37 INR 1.2 08/14/17 14:37 APTT 35 SECONDS (21-34) H 08/14/17 14:37
[2017-08-18] MEDS: Vancomycin 1 gm/NS 200 ml 1 GM/200 ML BAG IVPB SCH (21:31)
--- NOTE | 2017-08-18 22:27 | PN ---
DATE: 08/18/2017 INFECTIOUS DISEASE FOLLOWUP SUBJECTIVE: The patient is in bed. She is very drowsy, sleepy at this time. PHYSICAL EXAMINATION: VITAL SIGNS: T-max is 98.3, pulse 88, blood pressure 116/80, respirations are 20. HEENT: Head is atraumatic, normocephalic. NECK: Supple. LUNGS: Decreased breath sounds bilaterally. HEART: S1, S2 are regular. ABDOMEN: Soft, nontender. No guarding, no rigidity present. EXTREMITIES: Have no edema. LABORATORY DATA: Her white count jumped to 21 today, hemoglobin 12.4, hematocrit 37.5, platelet count is 367. BUN is 19, creatinine is 0.5. IMPRESSION AND PLAN: She is on vancomycin and meropenem. White count is increasing. I think it is not a good sign as she does have left lung opacification and remains ill. She is chronically ill, has respiratory failure, increasing white count, pneumonia, cachexia, failure to thrive, and probably should be on palliative care. Her urine had Escherichia coli and enterococcus. She is being on vancomycin and Merrem. I was covering that, but white count is increasing. So, it seems like she may be having worsening of her infiltrate. We will repeat the x-ray tomorrow. Prognosis remains guarded. I will repeat the labs tomorrow first and see if it continues to be increasing, then we will get a chest x-ray. We will follow. Prognosis is very very poor. Adamaris Jordan MD
[2017-08-19] MEDS: Albuterol 0.083% Inhal Sol (2.5 mg/3 mL) UD INH SCH ×4 (01:24→19:35)
[2017-08-19] MEDS: Meropenem 1 GM in Sodium Chloride 0.9% 100 ML IVPB SCH ×2 (02:20→14:05)
[2017-08-19 06:22] LABS: BASO # 0.1 K/uL (0.0-0.2); BASO % 0.4 % (0.0-2.0); EOS # 0.1 K/uL (0.0-0.7); EOS % 0.3 % (0.0-4.0); LYMPH # 2.5 K/uL (1.0-4.3); LYMPH % 13.9 % (20.0-40.0); MEAN CELL VOLUME 77.8 fL (81.0-99.0); MEAN CORPUSCULAR HEMOGLOBIN 25.7 pg (27.0-31.0); MEAN CORPUSCULAR HGB CONC 33.1 g/dL (33.0-37.0); MEAN PLATELET VOLUME 6.9 fL (7.2-11.7); MONO # 1.6 K/uL (0.0-0.8); MONO % 9.1 % (0.0-10.0); NEUT # 13.7 K/uL (1.8-7.0); NEUT % 76.3 % (50.0-75.0); RBC 4.28 Mil/uL (3.80-5.20); RED CELL DISTRIBUTION WIDTH 18.5 % (11.5-14.5)
[2017-08-19 06:38] LABS: ALB/GLOB RATIO 0.8 (1.0-2.1); ALBUMIN 2.5 g/dL (3.5-5.0); ALT/SGPT 17 U/L (9-52); AST/SGOT 50 U/L (14-36); BLOOD UREA NITROGEN 25 mg/dL (7-17); CALCIUM 8.8 mg/dl (8.6-10.4); GFR AFRICAN-AMERICAN > 60; GFR NON-AFRICAN AMERICAN > 60
[2017-08-19] MEDS: Multiple Vitamins Tab PO SCH (09:39)
--- NOTE | 2017-08-19 13:32 | CP.PCM.PN ---
Subjective - Date & Time of Evaluation Date of Evaluation: 08/19/17 Time of Evaluation: 01:15 - Subjective Subjective: dictated Objective - Vital Signs/Intake and Output Vital Signs (last 24 hours): Temp Pulse Resp BP Pulse Ox 98.6 F 80 20 128/77 99 08/19/17 07:00 08/19/17 07:00 08/19/17 07:00 08/19/17 07:00 08/19/17 07:00 Intake and Output: 08/19/17 08/19/17 06:59 18:59 Intake Total 480 Balance 480 - Medications Medications: Current Medications Acetaminophen (Tylenol 325mg Tab) 650 mg PO Q4 PRN PRN Reason: Pain, Mild (1-3) Albuterol Sulfate (Albuterol 0.083% Inhal Francisca (2.5 Mg/3 Ml) Ud) 2.5 mg INH RQ6 [facility] Last Admin: 08/19/17 07:37 Dose: 2.5 mg Aspirin (Aspirin Chewable) 81 mg PO DAILY [facility] Last Admin: 08/19/17 09:39 Dose: 81 mg Carvedilol (Coreg) 6.25 mg PO BID [facility] Last Admin: 08/19/17 09:38 Dose: 6.25 mg Docusate Sodium (Colace) 200 mg PO HS [facility] Last Admin: 08/18/17 21:32 Dose: 200 mg Gabapentin (Neurontin) 100 mg PO HS [facility] Last Admin: 08/18/17 21:32 Dose: 100 mg Guaifenesin/Dextromethorphan (Robitussin Dm) 10 ml PO Q12 PRN PRN Reason: Cough Meropenem 1 gm/ Sodium (Chloride) 100 mls @ 200 mls/hr IVPB Q12H [facility] PRN Reason: Protocol Last Admin: 08/19/17 02:20 Dose: 200 mls/hr Vancomycin/Sodium Chloride (Vancomycin 1 Gm/Ns 200 Ml) 1 gm in 200 mls @ 133.333 mls/hr IVPB Q24H [facility] PRN Reason: Protocol Stop: 08/21/17 22:01 Last Admin: 08/18/17 21:31 Dose: 133.333 mls/hr Multivitamins (Hexavitamin) 1 tab PO DAILY [facility] Last Admin: 08/19/17 09:39 Dose: 1 tab Potassium Chloride (Klor-Con 10) 10 meq PO Q4 [facility] Stop: 08/19/17 16:01 Rosuvastatin Calcium (Crestor) 20 mg PO HS [facility] Last Admin: 08/18/17 21:32 Dose: 20 mg Tramadol HCl (Ultram) 50 mg PO Q8 PRN PRN Reason: Pain, severe (8-10) Last Admin: 08/16/17 17:10 Dose: 50 mg - Labs Labs: 08/19/17 06:17 08/19/17 06:17 PT 13.2 SECONDS (9.7-12.2) H 08/14/17 14:37 INR 1.2 08/14/17 14:37 APTT 35 SECONDS (21-34) H 08/14/17 14:37
[2017-08-19] MEDS: Potassium Chloride 10 mEq ER Tab PO SCH ×2 (14:04→17:45)
--- NOTE | 2017-08-19 15:01 | CP.PCM.PN ---
Subjective - Date & Time of Evaluation Date of Evaluation: 08/19/17 Time of Evaluation: 10:45 - Subjective Subjective: clinically same Objective - Vital Signs/Intake and Output Vital Signs (last 24 hours): Temp Pulse Resp BP Pulse Ox 98.6 F 80 20 128/77 99 08/19/17 07:00 08/19/17 07:00 08/19/17 07:00 08/19/17 07:00 08/19/17 07:00 Intake and Output: 08/19/17 08/19/17 06:59 18:59 Intake Total 480 Balance 480 - Medications Medications: Current Medications Acetaminophen (Tylenol 325mg Tab) 650 mg PO Q4 PRN PRN Reason: Pain, Mild (1-3) Albuterol Sulfate (Albuterol 0.083% Inhal Francisca (2.5 Mg/3 Ml) Ud) 2.5 mg INH RQ6 [facility] Last Admin: 08/19/17 13:42 Dose: 2.5 mg Aspirin (Aspirin Chewable) 81 mg PO DAILY [facility] Last Admin: 08/19/17 09:39 Dose: 81 mg Carvedilol (Coreg) 6.25 mg PO BID [facility] Last Admin: 08/19/17 09:38 Dose: 6.25 mg Docusate Sodium (Colace) 200 mg PO HS [facility] Last Admin: 08/18/17 21:32 Dose: 200 mg Gabapentin (Neurontin) 100 mg PO HS [facility] Last Admin: 08/18/17 21:32 Dose: 100 mg Guaifenesin/Dextromethorphan (Robitussin Dm) 10 ml PO Q12 PRN PRN Reason: Cough Meropenem 1 gm/ Sodium (Chloride) 100 mls @ 200 mls/hr IVPB Q12H [facility] PRN Reason: Protocol Last Admin: 08/19/17 14:05 Dose: 200 mls/hr Vancomycin/Sodium Chloride (Vancomycin 1 Gm/Ns 200 Ml) 1 gm in 200 mls @ 133.333 mls/hr IVPB Q24H [facility] PRN Reason: Protocol Stop: 08/21/17 22:01 Last Admin: 08/18/17 21:31 Dose: 133.333 mls/hr Multivitamins (Hexavitamin) 1 tab PO DAILY [facility] Last Admin: 08/19/17 09:39 Dose: 1 tab Potassium Chloride (Klor-Con 10) 10 meq PO Q4 [facility] Stop: 08/19/17 16:01 Last Admin: 08/19/17 14:04 Dose: 10 meq Rosuvastatin Calcium (Crestor) 20 mg PO HS [facility] Last Admin: 08/18/17 21:32 Dose: 20 mg Tramadol HCl (Ultram) 50 mg PO Q8 PRN PRN Reason: Pain, severe (8-10) Last Admin: 08/16/17 17:10 Dose: 50 mg - Labs Labs: 08/19/17 06:17 08/19/17 06:17 PT 13.2 SECONDS (9.7-12.2) H 08/14/17 14:37 INR 1.2 08/14/17 14:37 APTT 35 SECONDS (21-34) H 08/14/17 14:37 - Constitutional Appears: Well - Head Exam Head Exam: ATRAUMATIC, NORMAL INSPECTION, NORMOCEPHALIC - Eye Exam Eye Exam: EOMI, Normal appearance, PERRL Pupil Exam: NORMAL ACCOMODATION, PERRL - ENT Exam ENT Exam: Mucous Membranes Moist, Normal Exam - Neck Exam Neck Exam: Full ROM, Normal Inspection. absent: Lymphadenopathy - Respiratory Exam Respiratory Exam: Decreased Breath Sounds - Cardiovascular Exam Cardiovascular Exam: REGULAR RHYTHM, +S1, +S2 - GI/Abdominal Exam GI & Abdominal Exam: Soft, Diminished Bowel Sounds - Rectal Exam Rectal Exam: Deferred
--- NOTE | 2017-08-19 17:18 | CP.PCM.PN ---
Subjective - Date & Time of Evaluation Date of Evaluation: 08/19/17 Time of Evaluation: 17:16 - Subjective Subjective: PT IN NO DISTRESS. ROS; UNOBTAINABLE. Objective - Vital Signs/Intake and Output Vital Signs (last 24 hours): Temp Pulse Resp BP Pulse Ox 97.5 F L 72 20 117/74 100 08/19/17 14:00 08/19/17 14:00 08/19/17 14:00 08/19/17 14:00 08/19/17 14:00 Intake and Output: 08/19/17 08/19/17 06:59 18:59 Intake Total 480 Balance 480 - Medications Medications: Current Medications Acetaminophen (Tylenol 325mg Tab) 650 mg PO Q4 PRN PRN Reason: Pain, Mild (1-3) Albuterol Sulfate (Albuterol 0.083% Inhal Francisca (2.5 Mg/3 Ml) Ud) 2.5 mg INH RQ6 [facility] Last Admin: 08/19/17 13:42 Dose: 2.5 mg Aspirin (Aspirin Chewable) 81 mg PO DAILY [facility] Last Admin: 08/19/17 09:39 Dose: 81 mg Carvedilol (Coreg) 6.25 mg PO BID [facility] Last Admin: 08/19/17 09:38 Dose: 6.25 mg Docusate Sodium (Colace) 200 mg PO HS [facility] Last Admin: 08/18/17 21:32 Dose: 200 mg Gabapentin (Neurontin) 100 mg PO HS [facility] Last Admin: 08/18/17 21:32 Dose: 100 mg Guaifenesin/Dextromethorphan (Robitussin Dm) 10 ml PO Q12 PRN PRN Reason: Cough Meropenem 1 gm/ Sodium (Chloride) 100 mls @ 200 mls/hr IVPB Q12H [facility] PRN Reason: Protocol Last Admin: 08/19/17 14:05 Dose: 200 mls/hr Vancomycin/Sodium Chloride (Vancomycin 1 Gm/Ns 200 Ml) 1 gm in 200 mls @ 133.333 mls/hr IVPB Q24H [facility] PRN Reason: Protocol Stop: 08/21/17 22:01 Last Admin: 08/18/17 21:31 Dose: 133.333 mls/hr Multivitamins (Hexavitamin) 1 tab PO DAILY [facility] Last Admin: 08/19/17 09:39 Dose: 1 tab Rosuvastatin Calcium (Crestor) 20 mg PO HS [facility] Last Admin: 08/18/17 21:32 Dose: 20 mg Tramadol HCl (Ultram) 50 mg PO Q8 PRN PRN Reason: Pain, severe (8-10) Last Admin: 08/16/17 17:10 Dose: 50 mg - Labs Labs: 08/19/17 06:17 08/19/17 06:17 PT 13.2 SECONDS (9.7-12.2) H 08/14/17 14:37 INR 1.2 08/14/17 14:37 APTT 35 SECONDS (21-34) H 08/14/17 14:37 - Constitutional Appears: No Acute Distress, Chronically Ill - Head Exam Head Exam: ATRAUMATIC, NORMOCEPHALIC - Eye Exam Eye Exam: EOMI, Normal appearance - ENT Exam ENT Exam: absent: Mucous Membranes Moist - Neck Exam Neck Exam: Normal Inspection - Respiratory Exam Respiratory Exam: Decreased Breath Sounds - Cardiovascular Exam Cardiovascular Exam: RRR, +S1, +S2 - GI/Abdominal Exam GI & Abdominal Exam: Soft. absent: Tenderness - Rectal Exam Rectal Exam: Deferred - Extremities Exam Extremities Exam: absent: Pedal Edema - Neurological Exam Neurological Exam: Awake Additional comments: NONVERBAL - Skin Skin Exam: absent: Rash Assessment and Plan (1) Respiratory failure Status: Acute (2) Pneumonia Status: Acute (3) Cachexia Status: Acute (4) Failure to thrive Status: Acute (5) Pleural effusion Status: Acute (6) CVA (cerebral vascular accident) Status: Acute (7) DJD (degenerative joint disease) Status: Acute (8) H/O: lung cancer Status: Acute (9) HTN (hypertension) Status: Acute - Assessment and Plan (Free Text) Assessment: RESP STATUS UNLABORED., CONT PULM TOILET. NEB BD., MONITOR O2 SAT. CXR REVIEWED. SUPP K . PROG POOR. DISCUSSED WITH STAFF AND FAMILY AT BEDSIDE.
--- NOTE | 2017-08-19 17:21 | PN ---
DATE: 08/19/2017 SUBJECTIVE: The patient remains drowsy, on oxygen. Thin lady, failure to thrive. PHYSICAL EXAMINATION: VITAL SIGNS: T-max is 98.6, pulse 80, blood pressure is 128/77, and respirations are 20. HEENT: Head is atraumatic. NECK: Supple. LUNGS: Decreased breath sounds bilaterally. HEART: S1 and S2 regular. ABDOMEN: Soft, nontender. No guarding. No rigidity present. EXTREMITIES: No edema. LABORATORY DATA: White count is 18 today, hemoglobin is 11, hematocrit 33.3 and platelet count is 364. BUN is 25, creatinine 0.50, alk phos is 165, troponin dated before and albumin remains low at 2.5. ASSESSMENT AND PLAN: She has lung cancer with metastasis to the other lung and prognosis remains guarded. for pneumonia at this time. We will continue present treatment. We will follow. Prognosis remains guarded. The patient's family is made aware of it. Adamaris Jordan MD
[2017-08-19] MEDS: Vancomycin 1 gm/NS 200 ml 1 GM/200 ML BAG IVPB SCH (21:27)
[2017-08-20] MEDS: Albuterol 0.083% Inhal Sol (2.5 mg/3 mL) UD INH SCH ×3 (01:21→13:11)
[2017-08-20] MEDS: Meropenem 1 GM in Sodium Chloride 0.9% 100 ML IVPB SCH ×2 (02:20→13:36)
[2017-08-20] MEDS: Multiple Vitamins Tab PO SCH (10:09)
--- NOTE | 2017-08-20 16:24 | CP.PCM.PN ---
Subjective - Date & Time of Evaluation Date of Evaluation: 08/20/17 Time of Evaluation: 16:22 - Subjective Subjective: PT AWAKE. NONVERBAL. ROS; UNOBTAINABLE Objective - Vital Signs/Intake and Output Vital Signs (last 24 hours): Temp Pulse Resp BP Pulse Ox 98.4 F 76 20 127/71 100 08/20/17 07:00 08/20/17 07:00 08/20/17 07:00 08/20/17 07:00 08/20/17 07:00 Intake and Output: 08/20/17 08/20/17 06:59 18:59 Intake Total 200 Balance 200 - Medications Medications: Current Medications Acetaminophen (Tylenol 325mg Tab) 650 mg PO Q4 PRN PRN Reason: Pain, Mild (1-3) Aspirin (Aspirin Chewable) 81 mg PO DAILY [facility] Last Admin: 08/20/17 10:09 Dose: 81 mg Carvedilol (Coreg) 6.25 mg PO BID [facility] Last Admin: 08/20/17 10:09 Dose: 6.25 mg Docusate Sodium (Colace) 200 mg PO HS [facility] Last Admin: 08/19/17 21:27 Dose: 200 mg Gabapentin (Neurontin) 100 mg PO HS [facility] Last Admin: 08/19/17 21:27 Dose: 100 mg Guaifenesin/Dextromethorphan (Robitussin Dm) 10 ml PO Q12 PRN PRN Reason: Cough Meropenem 1 gm/ Sodium (Chloride) 100 mls @ 200 mls/hr IVPB Q12H [facility] PRN Reason: Protocol Last Admin: 08/20/17 13:36 Dose: 200 mls/hr Vancomycin/Sodium Chloride (Vancomycin 1 Gm/Ns 200 Ml) 1 gm in 200 mls @ 133.333 mls/hr IVPB Q24H [facility] PRN Reason: Protocol Stop: 08/21/17 22:01 Last Admin: 08/19/17 21:27 Dose: 133.333 mls/hr Multivitamins (Hexavitamin) 1 tab PO DAILY [facility] Last Admin: 08/20/17 10:09 Dose: 1 tab Rosuvastatin Calcium (Crestor) 20 mg PO HS [facility] Last Admin: 08/19/17 21:27 Dose: 20 mg Tramadol HCl (Ultram) 50 mg PO Q8 PRN PRN Reason: Pain, severe (8-10) Last Admin: 08/16/17 17:10 Dose: 50 mg - Labs Labs: 08/19/17 06:17 08/19/17 06:17 PT 13.2 SECONDS (9.7-12.2) H 08/14/17 14:37 INR 1.2 08/14/17 14:37 APTT 35 SECONDS (21-34) H 08/14/17 14:37 - Constitutional Appears: No Acute Distress, Chronically Ill - Head Exam Head Exam: ATRAUMATIC, NORMOCEPHALIC - Eye Exam Eye Exam: EOMI, Normal appearance - Neck Exam Neck Exam: Normal Inspection - Respiratory Exam Respiratory Exam: Decreased Breath Sounds - Cardiovascular Exam Cardiovascular Exam: RRR, +S1, +S2 - GI/Abdominal Exam GI & Abdominal Exam: Soft. absent: Tenderness - Rectal Exam Rectal Exam: Deferred - Extremities Exam Extremities Exam: absent: Pedal Edema - Neurological Exam Neurological Exam: Awake Additional comments: NONVERBAL. - Skin Skin Exam: absent: Rash Assessment and Plan (1) Respiratory failure Status: Acute (2) Pneumonia Status: Acute (3) Cachexia Status: Acute (4) Failure to thrive Status: Acute (5) Pleural effusion Status: Acute (6) CVA (cerebral vascular accident) Status: Acute (7) DJD (degenerative joint disease) Status: Acute (8) H/O: lung cancer Status: Acute (9) HTN (hypertension) Status: Acute - Assessment and Plan (Free Text) Assessment: RESP STATUS NO SIG CHANGE., CONT PULM TOILET., ASP PRECAUTIONS., PO DIET TOLERATED,. CXR REVIEWED. PROG GRIM, DISCUSSED WITH STAFF AND FAMILY AT BEDSIDE.
[2017-08-20] MEDS: Vancomycin 1 gm/NS 200 ml 1 GM/200 ML BAG IVPB SCH (21:37)
[2017-08-21] MEDS: Meropenem 1 GM in Sodium Chloride 0.9% 100 ML IVPB SCH ×2 (02:12→14:45)
[2017-08-21] MEDS: Multiple Vitamins Tab PO SCH (11:07)
--- NOTE | 2017-08-21 14:07 | CP.PCM.PN ---
Subjective - Date & Time of Evaluation Date of Evaluation: 08/21/17 Time of Evaluation: 14:04 - Subjective Subjective: COVERING DR Silke BECK PT IN NO DISTRESS. ROS; UNOBTAINABLE. Objective - Vital Signs/Intake and Output Vital Signs (last 24 hours): Temp Pulse Resp BP Pulse Ox 97.9 F 89 18 105/66 99 08/21/17 07:00 08/21/17 07:00 08/21/17 07:00 08/21/17 07:00 08/21/17 07:00 Intake and Output: 08/21/17 08/21/17 06:59 18:59 Intake Total 220 Balance 220 - Medications Medications: Current Medications Acetaminophen (Tylenol 325mg Tab) 650 mg PO Q4 PRN PRN Reason: Pain, Mild (1-3) Aspirin (Aspirin Chewable) 81 mg PO DAILY [facility] Last Admin: 08/21/17 11:07 Dose: 81 mg Carvedilol (Coreg) 6.25 mg PO BID [facility] Last Admin: 08/21/17 11:07 Dose: 6.25 mg Docusate Sodium (Colace) 200 mg PO [facility] Last Admin: 08/20/17 21:37 Dose: 200 mg Gabapentin (Neurontin) 100 mg PO [facility] Last Admin: 08/20/17 21:37 Dose: 100 mg Guaifenesin/Dextromethorphan (Robitussin Dm) 10 ml PO Q12 PRN PRN Reason: Cough Meropenem 1 gm/ Sodium (Chloride) 100 mls @ 200 mls/hr IVPB Q12H [facility] PRN Reason: Protocol Last Admin: 08/21/17 02:12 Dose: 200 mls/hr Vancomycin/Sodium Chloride (Vancomycin 1 Gm/Ns 200 Ml) 1 gm in 200 mls @ 133.333 mls/hr IVPB Q24H [facility] PRN Reason: Protocol Stop: 08/21/17 22:01 Last Admin: 08/20/17 21:37 Dose: 133.333 mls/hr Multivitamins (Hexavitamin) 1 tab PO DAILY [facility] Last Admin: 08/21/17 11:07 Dose: 1 tab Rosuvastatin Calcium (Crestor) 20 mg PO [facility] Last Admin: 08/20/17 21:37 Dose: 20 mg Tramadol HCl (Ultram) 50 mg PO Q8 PRN PRN Reason: Pain, severe (8-10) Last Admin: 08/16/17 17:10 Dose: 50 mg - Labs Labs: 08/19/17 06:17 08/19/17 06:17 PT 13.2 SECONDS (9.7-12.2) H 08/14/17 14:37 INR 1.2 08/14/17 14:37 APTT 35 SECONDS (21-34) H 08/14/17 14:37 - Constitutional Appears: No Acute Distress, Cachectic, Chronically Ill - Head Exam Head Exam: ATRAUMATIC, NORMOCEPHALIC - Eye Exam Eye Exam: Normal appearance - ENT Exam ENT Exam: Mucous Membranes Moist - Neck Exam Neck Exam: Normal Inspection - Respiratory Exam Respiratory Exam: Decreased Breath Sounds - Cardiovascular Exam Cardiovascular Exam: RRR, +S1, +S2 - GI/Abdominal Exam GI & Abdominal Exam: Soft - Rectal Exam Rectal Exam: Deferred - Extremities Exam Extremities Exam: absent: Pedal Edema - Neurological Exam Additional comments: NONVERBAL., NOT FOLLOWING. Assessment and Plan (1) Respiratory failure Status: Acute (2) Pneumonia Status: Acute (3) Cachexia Status: Acute (4) Failure to thrive Status: Acute (5) Pleural effusion Status: Acute (6) CVA (cerebral vascular accident) Status: Acute (7) DJD (degenerative joint disease) Status: Acute (8) H/O: lung cancer Status: Acute (9) HTN (hypertension) Status: Acute - Assessment and Plan (Free Text) Assessment: RESP STATUS UNLABORED., CONT PULM TOILET., NEB BD., MONITOR O2 SAT., TOLERATING 2L. CXR REVIEWED., PROG POOR., DISCUSSED WITH STAFF AND ID. DNR DISCUSSIONS IN PROGRESS.
--- NOTE | 2017-08-21 19:09 | CP.PCM.PN ---
Subjective - Date & Time of Evaluation Date of Evaluation: 08/21/17 Time of Evaluation: 02:00 - Subjective Subjective: dictated Objective - Vital Signs/Intake and Output Vital Signs (last 24 hours): Temp Pulse Resp BP Pulse Ox 98.1 F 82 20 126/77 98 08/21/17 15:30 08/21/17 15:30 08/21/17 15:30 08/21/17 15:30 08/21/17 15:30 - Medications Medications: Current Medications Acetaminophen (Tylenol 325mg Tab) 650 mg PO Q4 PRN PRN Reason: Pain, Mild (1-3) Aspirin (Aspirin Chewable) 81 mg PO DAILY [facility] Last Admin: 08/21/17 11:07 Dose: 81 mg Carvedilol (Coreg) 6.25 mg PO BID [facility] Last Admin: 08/21/17 18:44 Dose: 6.25 mg Docusate Sodium (Colace) 200 mg PO [facility] Last Admin: 08/20/17 21:37 Dose: 200 mg Gabapentin (Neurontin) 100 mg PO [facility] Last Admin: 08/20/17 21:37 Dose: 100 mg Guaifenesin/Dextromethorphan (Robitussin Dm) 10 ml PO Q12 PRN PRN Reason: Cough Meropenem 1 gm/ Sodium (Chloride) 100 mls @ 200 mls/hr IVPB Q12H [facility] PRN Reason: Protocol Last Admin: 08/21/17 14:45 Dose: 200 mls/hr Vancomycin/Sodium Chloride (Vancomycin 1 Gm/Ns 200 Ml) 1 gm in 200 mls @ 133.333 mls/hr IVPB Q24H [facility] PRN Reason: Protocol Stop: 08/21/17 22:01 Last Admin: 08/20/17 21:37 Dose: 133.333 mls/hr Multivitamins (Hexavitamin) 1 tab PO DAILY [facility] Last Admin: 08/21/17 11:07 Dose: 1 tab Rosuvastatin Calcium (Crestor) 20 mg PO [facility] Last Admin: 08/20/17 21:37 Dose: 20 mg Tramadol HCl (Ultram) 50 mg PO Q8 PRN PRN Reason: Pain, severe (8-10) Last Admin: 08/16/17 17:10 Dose: 50 mg - Labs Labs: 08/19/17 06:17 08/19/17 06:17 PT 13.2 SECONDS (9.7-12.2) H 08/14/17 14:37 INR 1.2 08/14/17 14:37 APTT 35 SECONDS (21-34) H 08/14/17 14:37
[2017-08-21] MEDS: Vancomycin 1 gm/NS 200 ml 1 GM/200 ML BAG IVPB SCH (21:46)
--- NOTE | 2017-08-22 00:12 | PN ---
DATE: 08/21/2017 INFECTIOUS DISEASE FOLLOWUP SUBJECTIVE: The patient was a little awake today. Her daughter was at the bedside and I spoke to her about DNR. She states she was going to discuss with her and let us know. Her mother lies with her eyes open, but she is noncommunicative at this time. PHYSICAL EXAMINATION: GENERAL: She is lethargic. HEENT: Head is atraumatic. NECK: Supple. LUNGS: Decreased breath sounds. Poor inspiratory effort. HEART: S1 and S2 is regular. ABDOMEN: Soft. Nontender. No guarding. No rigidity present. EXTREMITIES: Have no edema. She has failure to thrive and has extensive tumor, but for all the days today she was looking a little better, so we will continue the antibiotics and we will repeat the labs tomorrow and we will follow. The patient's daughter was told what DNR is and I discussed with her to look into advanced directives as the patient is not improving and she promises to discuss with her , but did not decide at this time about DNR. Adamaris Jordan MD
[2017-08-22] MEDS: Meropenem 1 GM in Sodium Chloride 0.9% 100 ML IVPB SCH ×2 (02:30→13:37)
[2017-08-22 08:44] LABS: BASO # 0.1 K/uL (0.0-0.2); BASO % 0.5 % (0.0-2.0); EOS # 0.5 K/uL (0.0-0.7); EOS % 3.5 % (0.0-4.0); HEMOGLOBIN 10.9 g/dL (11.0-16.0); LYMPH # 2.2 K/uL (1.0-4.3); LYMPH % 16.1 % (20.0-40.0); MEAN CELL VOLUME 77.3 fL (81.0-99.0); MEAN CORPUSCULAR HEMOGLOBIN 26.3 pg (27.0-31.0); MEAN CORPUSCULAR HGB CONC 33.9 g/dL (33.0-37.0); MEAN PLATELET VOLUME 6.8 fL (7.2-11.7); MONO % 7.6 % (0.0-10.0); NEUT # 9.9 K/uL (1.8-7.0); NEUT % 72.3 % (50.0-75.0); RBC 4.14 Mil/uL (3.80-5.20); RED CELL DISTRIBUTION WIDTH 18.9 % (11.5-14.5); WHITE BLOOD COUNT 13.7 K/uL (4.8-10.8)
[2017-08-22 09:01] LABS: ALB/GLOB RATIO 0.8 (1.0-2.1); ALBUMIN 2.4 g/dL (3.5-5.0); ALT/SGPT 38 U/L (9-52); AST/SGOT 43 U/L (14-36); BLOOD UREA NITROGEN 22 mg/dL (7-17); CALCIUM 8.3 mg/dl (8.6-10.4); GFR AFRICAN-AMERICAN > 60; GFR NON-AFRICAN AMERICAN > 60
[2017-08-22] MEDS: Multiple Vitamins Tab PO SCH (09:52)
--- NOTE | 2017-08-22 10:23 | CP.PCM.PN ---
Subjective - Date & Time of Evaluation Date of Evaluation: 08/22/17 Time of Evaluation: 10:20 - Subjective Subjective: COVERING DR Silke BECK PT AWAKE., NO DISTRESS. ROS; UNOBTAINABLE. Objective - Vital Signs/Intake and Output Vital Signs (last 24 hours): Temp Pulse Resp BP Pulse Ox 97.8 F 78 18 128/74 98 08/22/17 07:00 08/22/17 07:00 08/22/17 07:00 08/22/17 07:00 08/22/17 07:00 Intake and Output: 08/22/17 08/22/17 06:59 18:59 Intake Total 320 Balance 320 - Medications Medications: Current Medications Acetaminophen (Tylenol 325mg Tab) 650 mg PO Q4 PRN PRN Reason: Pain, Mild (1-3) Aspirin (Aspirin Chewable) 81 mg PO DAILY [facility] Last Admin: 08/22/17 09:51 Dose: 81 mg Carvedilol (Coreg) 6.25 mg PO BID [facility] Last Admin: 08/22/17 09:51 Dose: 6.25 mg Docusate Sodium (Colace) 200 mg PO [facility] Last Admin: 08/21/17 21:46 Dose: 200 mg Gabapentin (Neurontin) 100 mg PO [facility] Last Admin: 08/21/17 21:46 Dose: 100 mg Guaifenesin/Dextromethorphan (Robitussin Dm) 10 ml PO Q12 PRN PRN Reason: Cough Meropenem 1 gm/ Sodium (Chloride) 100 mls @ 200 mls/hr IVPB Q12H [facility] PRN Reason: Protocol Last Admin: 08/22/17 02:30 Dose: 200 mls/hr Multivitamins (Hexavitamin) 1 tab PO DAILY [facility] Last Admin: 08/22/17 09:52 Dose: 1 tab Rosuvastatin Calcium (Crestor) 20 mg PO [facility] Last Admin: 08/21/17 21:48 Dose: 20 mg Tramadol HCl (Ultram) 50 mg PO Q8 PRN PRN Reason: Pain, severe (8-10) Last Admin: 08/16/17 17:10 Dose: 50 mg - Labs Labs: 08/22/17 08:23 08/22/17 08:23 PT 13.2 SECONDS (9.7-12.2) H 07/09/18 14:37 INR 1.2 08/14/17 14:37 APTT 35 SECONDS (21-34) H 08/14/17 14:37 - Constitutional Appears: No Acute Distress, Chronically Ill - Head Exam Head Exam: ATRAUMATIC, NORMOCEPHALIC - Eye Exam Eye Exam: Normal appearance - ENT Exam ENT Exam: Mucous Membranes Moist - Neck Exam Neck Exam: Normal Inspection - Respiratory Exam Respiratory Exam: Decreased Breath Sounds - Cardiovascular Exam Cardiovascular Exam: RRR, +S1, +S2 - GI/Abdominal Exam GI & Abdominal Exam: Soft - Rectal Exam Rectal Exam: Deferred - Extremities Exam Extremities Exam: absent: Pedal Edema - Neurological Exam Neurological Exam: Awake Additional comments: NONVERBAL - Skin Skin Exam: absent: Rash Assessment and Plan (1) Respiratory failure Status: Acute (2) Pneumonia Status: Acute (3) Cachexia Status: Acute (4) Failure to thrive Status: Acute (5) Pleural effusion Status: Acute (6) CVA (cerebral vascular accident) Status: Acute (7) DJD (degenerative joint disease) Status: Acute (8) H/O: lung cancer Status: Acute (9) HTN (hypertension) Status: Acute - Assessment and Plan (Free Text) Assessment: RESP STATUS NO SIG CHANGE., CONT PULM TOILET., NEB BD., TOLERATING O2 2L. CONT AB., CXR REVIEWED. ASP PRECAUTIONS, TAKING PO FROM DAUGHTER., PROG GRIM., DISCUSSED WITH STAFF
--- NOTE | 2017-08-22 13:23 | CP.PCM.PN ---
Subjective - Date & Time of Evaluation Date of Evaluation: 08/22/17 Time of Evaluation: 01:15 - Subjective Subjective: dictated Objective - Vital Signs/Intake and Output Vital Signs (last 24 hours): Temp Pulse Resp BP Pulse Ox 97.8 F 78 18 128/74 98 08/22/17 07:00 08/22/17 07:00 08/22/17 07:00 08/22/17 07:00 08/22/17 07:00 Intake and Output: 08/22/17 08/22/17 06:59 18:59 Intake Total 320 Balance 320 - Medications Medications: Current Medications Acetaminophen (Tylenol 325mg Tab) 650 mg PO Q4 PRN PRN Reason: Pain, Mild (1-3) Aspirin (Aspirin Chewable) 81 mg PO DAILY [facility] Last Admin: 08/22/17 09:51 Dose: 81 mg Carvedilol (Coreg) 6.25 mg PO BID [facility] Last Admin: 08/22/17 09:51 Dose: 6.25 mg Docusate Sodium (Colace) 200 mg PO [facility] Last Admin: 08/21/17 21:46 Dose: 200 mg Gabapentin (Neurontin) 100 mg PO HS [facility] Last Admin: 08/21/17 21:46 Dose: 100 mg Guaifenesin/Dextromethorphan (Robitussin Dm) 10 ml PO Q12 PRN PRN Reason: Cough Meropenem 1 gm/ Sodium (Chloride) 100 mls @ 200 mls/hr IVPB Q12H [facility] PRN Reason: Protocol Last Admin: 08/22/17 02:30 Dose: 200 mls/hr Multivitamins (Hexavitamin) 1 tab PO DAILY [facility] Last Admin: 08/22/17 09:52 Dose: 1 tab Rosuvastatin Calcium (Crestor) 20 mg PO HS [facility] Last Admin: 08/21/17 21:48 Dose: 20 mg Tramadol HCl (Ultram) 50 mg PO Q8 PRN PRN Reason: Pain, severe (8-10) Last Admin: 08/16/17 17:10 Dose: 50 mg - Labs Labs: 08/22/17 08:23 08/22/17 08:23 PT 13.2 SECONDS (9.7-12.2) H 08/14/17 14:37 INR 1.2 08/14/17 14:37 APTT 35 SECONDS (21-34) H 08/14/17 14:37
--- NOTE | 2017-08-22 19:12 | PN ---
DATE: 08/22/2017 SUBJECTIVE: The patient is very drowsy and lethargic and she is not even sitting. They were offering food with and she is out of it. PHYSICAL EXAMINATION: VITAL SIGNS: T-max is 97.8, pulse 78, blood pressure 128/74, and respirations are 18. HEENT: Head is atraumatic, normocephalic, lethargic. NECK: Supple. LUNGS: Decreased breath sounds bilaterally. HEART: S1 and S2 is regular. ABDOMEN: Soft and nontender. No guarding. No rigidity present. EXTREMITIES: Have no edema. LABORATORY DATA: She has failure to thrive; however, we repeated the labs today. White count is 13.7, hemoglobin is 10.9, hematocrit 32, platelet count is 391, potassium is 3.4, we will supplement. BUN is 22, creatinine 0.4, and chloride is 112. ASSESSMENT AND PLAN: I do not think they can give potassium p.o. So, we will order intravenously and the patient has had classification of the left lung from pneumonia, cancer as well as large mass lesion in the left hilum associated with obstruction of the distal left main bronchus and complete collapse of left lung upper lobe suggesting of tumor recurrence. So, we will follow. We will supplement the potassium. Continue the antibiotics at this time as white count is decreasing, but she is very lethargic, may not be able to have oral food at this time. Adamaris Jordan MD
[2017-08-23] MEDS: Meropenem 1 GM in Sodium Chloride 0.9% 100 ML IVPB SCH ×2 (02:20→13:57)
[2017-08-23] MEDS: Multiple Vitamins Tab PO SCH (11:04)
--- NOTE | 2017-08-23 12:24 | CP.PCM.PN ---
Subjective - Date & Time of Evaluation Date of Evaluation: 08/23/17 Time of Evaluation: 12:21 - Subjective Subjective: COVERING DR Silke BECK PT MORE AWAKE NOW., NO DISTRESS. ROS; UNOBATINABLE. Objective - Vital Signs/Intake and Output Vital Signs (last 24 hours): Temp Pulse Resp BP Pulse Ox 981 F H 82 20 126/74 100 08/23/17 07:20 08/23/17 07:20 08/23/17 07:20 08/23/17 07:20 08/23/17 07:20 Intake and Output: 08/23/17 08/23/17 06:59 18:59 Intake Total 120 Balance 120 - Medications Medications: Current Medications Acetaminophen (Tylenol 325mg Tab) 650 mg PO Q4 PRN PRN Reason: Pain, Mild (1-3) Aspirin (Aspirin Chewable) 81 mg PO DAILY [facility] Last Admin: 08/23/17 11:04 Dose: 81 mg Carvedilol (Coreg) 6.25 mg PO BID [facility] Last Admin: 08/23/17 11:04 Dose: 6.25 mg Docusate Sodium (Colace) 200 mg PO HS [facility] Last Admin: 08/22/17 22:03 Dose: 200 mg Gabapentin (Neurontin) 100 mg PO [facility] Last Admin: 08/22/17 22:04 Dose: 100 mg Guaifenesin/Dextromethorphan (Robitussin Dm) 10 ml PO Q12 PRN PRN Reason: Cough Meropenem 1 gm/ Sodium (Chloride) 100 mls @ 200 mls/hr IVPB Q12H [facility] PRN Reason: Protocol Last Admin: 08/23/17 02:20 Dose: 200 mls/hr Multivitamins (Hexavitamin) 1 tab PO DAILY [facility] Last Admin: 08/23/17 11:04 Dose: 1 tab Multivitamins/Vitamin C (Multi-Delyn Liquid) 5 ml PO DAILY [facility] Rosuvastatin Calcium (Crestor) 20 mg PO [facility] Last Admin: 08/22/17 22:03 Dose: 20 mg Tramadol HCl (Ultram) 50 mg PO Q8 PRN PRN Reason: Pain, severe (8-10) Last Admin: 08/16/17 17:10 Dose: 50 mg - Labs Labs: 08/22/17 08:23 08/22/17 08:23 PT 13.2 SECONDS (9.7-12.2) H 08/14/17 14:37 INR 1.2 08/14/17 14:37 APTT 35 SECONDS (21-34) H 08/14/17 14:37 - Constitutional Appears: No Acute Distress, Cachectic, Chronically Ill - Head Exam Head Exam: ATRAUMATIC, NORMOCEPHALIC - Eye Exam Eye Exam: EOMI, Normal appearance - ENT Exam ENT Exam: Mucous Membranes Moist - Neck Exam Neck Exam: Normal Inspection - Respiratory Exam Respiratory Exam: Decreased Breath Sounds - Cardiovascular Exam Cardiovascular Exam: RRR, +S1, +S2 - GI/Abdominal Exam GI & Abdominal Exam: Soft. absent: Tenderness - Rectal Exam Rectal Exam: Deferred - Extremities Exam Extremities Exam: absent: Calf Tenderness, Pedal Edema - Back Exam Back Exam: absent: CVA tenderness (L), CVA tenderness (R) - Neurological Exam Neurological Exam: Awake Additional comments: NONVERBAL - Skin Skin Exam: absent: Rash Assessment and Plan (1) Respiratory failure Status: Acute (2) Pneumonia Status: Acute (3) Cachexia Status: Acute (4) Failure to thrive Status: Acute (5) Pleural effusion Status: Acute (6) CVA (cerebral vascular accident) Status: Acute (7) DJD (degenerative joint disease) Status: Acute (8) H/O: lung cancer Status: Acute (9) HTN (hypertension) Status: Acute - Assessment and Plan (Free Text) Assessment: RESP STATUS UNLABORED. CONT PULM TOILET., TOLERATING O2 2L. CXR REVIEWED. ASP PRECAUTIONS. TAKING SMALL AMTS PO WITH DAUGHTER ONLY. ID F/U NOTED. PROG GRIM., DISCUSSED WITH STAFF AT LENGTH.
--- NOTE | 2017-08-23 19:00 | CP.PCM.PN ---
Subjective - Date & Time of Evaluation Date of Evaluation: 08/23/17 Time of Evaluation: 02:00 - Subjective Subjective: dictated Objective - Vital Signs/Intake and Output Vital Signs (last 24 hours): Temp Pulse Resp BP Pulse Ox 97.8 F 83 20 137/81 99 08/23/17 15:00 08/23/17 15:00 08/23/17 15:00 08/23/17 15:00 08/23/17 15:00 Intake and Output: 08/23/17 08/23/17 06:59 18:59 Intake Total 120 Balance 120 - Medications Medications: Current Medications Acetaminophen (Tylenol 325mg Tab) 650 mg PO Q4 PRN PRN Reason: Pain, Mild (1-3) Aspirin (Aspirin Chewable) 81 mg PO DAILY [facility] Last Admin: 08/23/17 11:04 Dose: 81 mg Carvedilol (Coreg) 6.25 mg PO BID [facility] Last Admin: 08/23/17 11:04 Dose: 6.25 mg Docusate Sodium (Colace) 200 mg PO [facility] Last Admin: 08/22/17 22:03 Dose: 200 mg Gabapentin (Neurontin) 100 mg PO HS [facility] Last Admin: 08/22/17 22:04 Dose: 100 mg Guaifenesin/Dextromethorphan (Robitussin Dm) 10 ml PO Q12 PRN PRN Reason: Cough Meropenem 1 gm/ Sodium (Chloride) 100 mls @ 200 mls/hr IVPB Q12H [facility] PRN Reason: Protocol Last Admin: 08/23/17 13:57 Dose: 200 mls/hr Multivitamins (Hexavitamin) 1 tab PO DAILY [facility] Last Admin: 08/23/17 11:04 Dose: 1 tab Rosuvastatin Calcium (Crestor) 20 mg PO HS [facility] Last Admin: 08/22/17 22:03 Dose: 20 mg Tramadol HCl (Ultram) 50 mg PO Q8 PRN PRN Reason: Pain, severe (8-10) Last Admin: 08/16/17 17:10 Dose: 50 mg - Labs Labs: 08/22/17 08:23 08/22/17 08:23 PT 13.2 SECONDS (9.7-12.2) H 08/14/17 14:37 INR 1.2 08/14/17 14:37 APTT 35 SECONDS (21-34) H 08/14/17 14:37
[2017-08-23 21:55] LABS: SQUAMOUS EPITHIAL 1 /hpf (0-5); URINE AMORPHOUS SEDIMENT RARE /ul (<OCC); URINE BACTERIA RARE (<OCC); URINE BILIRUBIN NEGATIVE (NEGATIVE); URINE BLOOD 2+ (NEGATIVE); URINE CLARITY Hazy (Clear); URINE COLOR Amber (YELLOW); URINE GLUCOSE (UA) 1+ mg/dL (Normal); URINE LEUKOCYTE ESTERASE 2+ Leu/uL (Negative); URINE PROTEIN 1+ mg/dL (NEGATIVE); URINE UROBILINOGEN NORMAL mg/dL (0.2-1.0); WBC CLUMPS FEW /hpf
--- NOTE | 2017-08-24 00:20 | PN ---
DATE: 08/23/2017 SUBJECTIVE: The patient has been very drowsy, barely responsive, lethargic, and has not been tolerating any oral food. The ____ have been lying around. PHYSICAL EXAMINATION: VITALS: Showed temperature is 98.1, pulse 82, blood pressure 126/74, respirations are 20. HEENT: Head is atraumatic. NECK: Supple. LUNGS: Decreased breath sounds bilaterally. HEART: S1, S2 regular. ABDOMEN: Soft, nontender. No guarding. No rigidity present. LABORATORY DATA: White count has come down and her last CT was on 08/15/2017. We will repeat the x-ray tomorrow, and hopefully, can get her off the antibiotics. She does have lung cancer with obstruction and prognosis remains guarded. However, her white count has improved. So the obstruction may have been slightly better, but overall prognosis remains poor. We will follow. She was in contact precaution because she had UTI but unable to collect the urine. We will order it and see if they are able to collect. Adamaris Jordan MD
[2017-08-24] MEDS: Meropenem 1 GM in Sodium Chloride 0.9% 100 ML IVPB SCH ×2 (01:50→13:27)
[2017-08-24] MEDS ORDERED: Multiple Vitamins Oral Solution PO SCH (10:00)
[2017-08-24] MEDS: Multiple Vitamins Tab PO SCH (10:38)
--- NOTE | 2017-08-24 10:42 | CP.PCM.PN ---
Subjective - Date & Time of Evaluation Date of Evaluation: 08/24/17 Time of Evaluation: 10:40 - Subjective Subjective: PT AWAKE, NO DISTRESS. ROS; UNOBTAINABLE. Objective - Vital Signs/Intake and Output Vital Signs (last 24 hours): Temp Pulse Resp BP Pulse Ox 97.6 F 64 18 154/72 H 99 08/24/17 07:30 08/24/17 07:30 08/24/17 07:30 08/24/17 07:30 08/24/17 07:30 Intake and Output: 08/24/17 08/24/17 06:59 18:59 Intake Total 200 Balance 200 - Medications Medications: Current Medications Acetaminophen (Tylenol 325mg Tab) 650 mg PO Q4 PRN PRN Reason: Pain, Mild (1-3) Aspirin (Aspirin Chewable) 81 mg PO DAILY [facility] Last Admin: 08/23/17 11:04 Dose: 81 mg Carvedilol (Coreg) 6.25 mg PO BID [facility] Last Admin: 08/23/17 19:48 Dose: 6.25 mg Docusate Sodium (Colace) 200 mg PO [facility] Last Admin: 08/23/17 21:37 Dose: 200 mg Gabapentin (Neurontin) 100 mg PO HS [facility] Last Admin: 08/23/17 21:39 Dose: 100 mg Guaifenesin/Dextromethorphan (Robitussin Dm) 10 ml PO Q12 PRN PRN Reason: Cough Meropenem 1 gm/ Sodium (Chloride) 100 mls @ 200 mls/hr IVPB Q12H [facility] PRN Reason: Protocol Last Admin: 08/24/17 01:50 Dose: 200 mls/hr Multivitamins (Hexavitamin) 1 tab PO DAILY [facility] Last Admin: 08/23/17 11:04 Dose: 1 tab Rosuvastatin Calcium (Crestor) 20 mg PO [facility] Last Admin: 08/23/17 21:38 Dose: 20 mg Tramadol HCl (Ultram) 50 mg PO Q8 PRN PRN Reason: Pain, severe (8-10) Last Admin: 08/16/17 17:10 Dose: 50 mg - Labs Labs: 08/22/17 08:23 08/22/17 08:23 PT 13.2 SECONDS (9.7-12.2) H 08/14/17 14:37 INR 1.2 08/14/17 14:37 APTT 35 SECONDS (21-34) H 08/14/17 14:37 - Constitutional Appears: No Acute Distress, Chronically Ill - Head Exam Head Exam: ATRAUMATIC, NORMOCEPHALIC - Eye Exam Eye Exam: EOMI, Normal appearance - ENT Exam ENT Exam: Mucous Membranes Moist - Neck Exam Neck Exam: Normal Inspection - Respiratory Exam Respiratory Exam: Decreased Breath Sounds - Cardiovascular Exam Cardiovascular Exam: RRR, +S1, +S2 - GI/Abdominal Exam GI & Abdominal Exam: Soft - Rectal Exam Rectal Exam: Deferred - Extremities Exam Extremities Exam: absent: Calf Tenderness, Pedal Edema - Back Exam Back Exam: absent: CVA tenderness (L), CVA tenderness (R) - Neurological Exam Neurological Exam: Awake. absent: Oriented x3 Additional comments: NONVERBAL - Skin Skin Exam: absent: Rash Assessment and Plan (1) Respiratory failure Status: Acute (2) Pneumonia Status: Acute (3) Cachexia Status: Acute (4) Failure to thrive Status: Acute (5) Pleural effusion Status: Acute (6) CVA (cerebral vascular accident) Status: Acute (7) DJD (degenerative joint disease) Status: Acute (8) H/O: lung cancer Status: Acute (9) HTN (hypertension) Status: Acute - Assessment and Plan (Free Text) Assessment: RESP STATUS UNLABORED. CONT PULM TOILET., MONITOR O2 SAT. TOLERATING 2L., CONT ASP PRECAUTIONS., AFEBRILE ON AB. CXR REVIEWED. F/U CXR PENDING. ID F/U NOTED. PROG POOR., DISCUSSED WITH STAFF AT LENGTH.
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
--- NOTE | 2017-08-24 14:53 | CP.PCM.PN ---
Subjective - Date & Time of Evaluation Date of Evaluation: 08/24/17 Time of Evaluation: 09:30 - Subjective Subjective: clinically same Objective - Vital Signs/Intake and Output Vital Signs (last 24 hours): Temp Pulse Resp BP Pulse Ox 97.6 F 64 18 154/72 H 99 08/24/17 07:30 08/24/17 07:30 08/24/17 07:30 08/24/17 07:30 08/24/17 07:30 Intake and Output: 08/24/17 08/24/17 06:59 18:59 Intake Total 200 Balance 200 - Medications Medications: Current Medications Acetaminophen (Tylenol 325mg Tab) 650 mg PO Q4 PRN PRN Reason: Pain, Mild (1-3) Aspirin (Aspirin Chewable) 81 mg PO DAILY [facility] Last Admin: 08/24/17 10:37 Dose: 81 mg Carvedilol (Coreg) 6.25 mg PO BID [facility] Last Admin: 08/24/17 10:38 Dose: 6.25 mg Docusate Sodium (Colace) 200 mg PO [facility] Last Admin: 08/23/17 21:37 Dose: 200 mg Gabapentin (Neurontin) 100 mg PO HS [facility] Last Admin: 08/23/17 21:39 Dose: 100 mg Guaifenesin/Dextromethorphan (Robitussin Dm) 10 ml PO Q12 PRN PRN Reason: Cough Meropenem 1 gm/ Sodium (Chloride) 100 mls @ 200 mls/hr IVPB Q12H [facility] PRN Reason: Protocol Last Admin: 08/24/17 13:27 Dose: 200 mls/hr Multivitamins (Hexavitamin) 1 tab PO DAILY [facility] Last Admin: 08/24/17 10:38 Dose: 1 tab Rosuvastatin Calcium (Crestor) 20 mg PO HS [facility] Last Admin: 08/23/17 21:38 Dose: 20 mg Tramadol HCl (Ultram) 50 mg PO Q8 PRN PRN Reason: Pain, severe (8-10) Last Admin: 08/16/17 17:10 Dose: 50 mg - Labs Labs: 08/22/17 08:23 08/22/17 08:23 PT 13.2 SECONDS (9.7-12.2) H 08/14/17 14:37 INR 1.2 08/14/17 14:37 APTT 35 SECONDS (21-34) H 08/14/17 14:37 - Constitutional Appears: Well - Head Exam Head Exam: ATRAUMATIC, NORMAL INSPECTION, NORMOCEPHALIC - Eye Exam Eye Exam: EOMI, Normal appearance, PERRL Pupil Exam: NORMAL ACCOMODATION, PERRL - ENT Exam ENT Exam: Mucous Membranes Moist, Normal Exam - Neck Exam Neck Exam: Full ROM, Normal Inspection. absent: Lymphadenopathy - Respiratory Exam Respiratory Exam: Decreased Breath Sounds - Cardiovascular Exam Cardiovascular Exam: REGULAR RHYTHM, +S1, +S2 - GI/Abdominal Exam GI & Abdominal Exam: Soft, Diminished Bowel Sounds - Rectal Exam Rectal Exam: Deferred
[2017-08-24] MEDS ORDERED: Potassium Chloride 10 mEq ER Tab PO STA ×2 (18:57→19:05)
--- NOTE | 2017-08-24 19:56 | CP.PCM.PN ---
Subjective - Date & Time of Evaluation Date of Evaluation: 08/24/17 Time of Evaluation: 03:00 - Subjective Subjective: Dictated Objective - Vital Signs/Intake and Output Vital Signs (last 24 hours): Temp Pulse Resp BP Pulse Ox 97.4 F L 71 20 127/78 99 08/24/17 15:00 08/24/17 15:00 08/24/17 15:00 08/24/17 15:00 08/24/17 15:00 - Medications Medications: Current Medications Acetaminophen (Tylenol 325mg Tab) 650 mg PO Q4 PRN PRN Reason: Pain, Mild (1-3) Aspirin (Aspirin Chewable) 81 mg PO DAILY [facility] Last Admin: 08/24/17 10:37 Dose: 81 mg Carvedilol (Coreg) 6.25 mg PO BID [facility] Last Admin: 08/24/17 18:31 Dose: 6.25 mg Docusate Sodium (Colace) 200 mg PO HS [facility] Last Admin: 08/23/17 21:37 Dose: 200 mg Gabapentin (Neurontin) 100 mg PO [facility] Last Admin: 08/23/17 21:39 Dose: 100 mg Guaifenesin/Dextromethorphan (Robitussin Dm) 10 ml PO Q12 PRN PRN Reason: Cough Meropenem 1 gm/ Sodium (Chloride) 100 mls @ 200 mls/hr IVPB Q12H [facility] PRN Reason: Protocol Last Admin: 08/24/17 13:27 Dose: 200 mls/hr Multivitamins (Hexavitamin) 1 tab PO DAILY [facility] Last Admin: 08/24/17 10:38 Dose: 1 tab Rosuvastatin Calcium (Crestor) 20 mg PO [facility] Last Admin: 08/23/17 21:38 Dose: 20 mg Tramadol HCl (Ultram) 50 mg PO Q8 PRN PRN Reason: Pain, severe (8-10) Last Admin: 08/16/17 17:10 Dose: 50 mg - Labs Labs: 08/22/17 08:23 08/22/17 08:23 PT 13.2 SECONDS (9.7-12.2) H 08/14/17 14:37 INR 1.2 08/14/17 14:37 APTT 35 SECONDS (21-34) H 08/14/17 14:37
[2017-08-25] MEDS: Meropenem 1 GM in Sodium Chloride 0.9% 100 ML IVPB SCH ×2 (02:11→13:40)
--- NOTE | 2017-08-25 02:50 | PN ---
DATE: 08/24/2017 SUBJECTIVE: The patient was seen today, and she remains lethargic, was unresponsive. PHYSICAL EXAMINATION: VITAL SIGNS: T-max is 97.4, pulse is 71, blood pressure 127/78, respirations are 20. HEENT: Head is atraumatic and normocephalic. NECK: Supple. LUNGS: Decreased breath sounds. She has failure to thrive. HEART: S1 and S2 are regular. ABDOMEN: Soft and nontender. EXTREMITIES: Have no edema. She has lung cancer with obstruction on that lung and may be possible right lung mets, and the nurse told me that the patient's family has refused for PEG tube, and I have requested urine culture. Actually, urine culture was done last night and still has 2+ blood, 2+ leukocytes, wbc 124, bacteria few. We will wait for the culture report, and I will renew the antibiotics. She did have ESBL, and she is in isolation. She came in with sepsis and remains with pyuria and is not able to clear infection because of being immunocompromised and failure to thrive. Adamaris Jordan MD
[2017-08-25] MEDS: Multiple Vitamins Tab PO SCH (11:00)
--- NOTE | 2017-08-25 14:36 | CP.PCM.PN ---
Subjective - Date & Time of Evaluation Date of Evaluation: 08/25/17 Time of Evaluation: 14:34 - Subjective Subjective: PT AWAKE, NONVERBAL., POOR PO INTAKE. NO DISTRESS. ROS; UNOBTAINABLE. Objective - Vital Signs/Intake and Output Vital Signs (last 24 hours): Temp Pulse Resp BP Pulse Ox 97.7 F 68 18 132/75 99 08/25/17 08:00 08/25/17 08:00 08/25/17 08:00 08/25/17 08:00 08/25/17 08:00 Intake and Output: 08/25/17 08/25/17 06:59 18:59 Intake Total 120 Balance 120 - Medications Medications: Current Medications Acetaminophen (Tylenol 325mg Tab) 650 mg PO Q4 PRN PRN Reason: Pain, Mild (1-3) Aspirin (Aspirin Chewable) 81 mg PO DAILY [facility] Last Admin: 08/25/17 11:00 Dose: 81 mg Carvedilol (Coreg) 6.25 mg PO BID [facility] Last Admin: 08/25/17 11:00 Dose: 6.25 mg Docusate Sodium (Colace) 200 mg PO [facility] Last Admin: 08/24/17 21:09 Dose: 200 mg Gabapentin (Neurontin) 100 mg PO [facility] Last Admin: 08/24/17 21:09 Dose: 100 mg Guaifenesin/Dextromethorphan (Robitussin Dm) 10 ml PO Q12 PRN PRN Reason: Cough Meropenem 1 gm/ Sodium (Chloride) 100 mls @ 200 mls/hr IVPB Q12H [facility] PRN Reason: Protocol Last Admin: 08/25/17 13:40 Dose: 200 mls/hr Multivitamins (Hexavitamin) 1 tab PO DAILY [facility] Last Admin: 08/25/17 11:00 Dose: 1 tab Rosuvastatin Calcium (Crestor) 20 mg PO [facility] Last Admin: 08/24/17 21:09 Dose: 20 mg Tramadol HCl (Ultram) 50 mg PO Q8 PRN PRN Reason: Pain, severe (8-10) Last Admin: 08/16/17 17:10 Dose: 50 mg - Labs Labs: 08/22/17 08:23 08/22/17 08:23 PT 13.2 SECONDS (9.7-12.2) H 08/14/17 14:37 INR 1.2 08/14/17 14:37 APTT 35 SECONDS (21-34) H 08/14/17 14:37 - Constitutional Appears: No Acute Distress, Cachectic, Chronically Ill - Head Exam Head Exam: ATRAUMATIC, NORMOCEPHALIC - Eye Exam Eye Exam: EOMI, Normal appearance - ENT Exam ENT Exam: Mucous Membranes Moist - Neck Exam Neck Exam: Normal Inspection - Respiratory Exam Respiratory Exam: Decreased Breath Sounds. absent: Respiratory Distress - Cardiovascular Exam Cardiovascular Exam: RRR, +S1, +S2 - GI/Abdominal Exam GI & Abdominal Exam: Soft. absent: Tenderness - Rectal Exam Rectal Exam: Deferred - Extremities Exam Extremities Exam: absent: Calf Tenderness, Pedal Edema - Back Exam Back Exam: absent: CVA tenderness (L), CVA tenderness (R) - Neurological Exam Neurological Exam: Awake. absent: Oriented x3 - Skin Skin Exam: absent: Rash Assessment and Plan (1) Respiratory failure Status: Acute (2) Pneumonia Status: Acute (3) Cachexia Status: Acute (4) Failure to thrive Status: Acute (5) Pleural effusion Status: Acute (6) CVA (cerebral vascular accident) Status: Acute (7) DJD (degenerative joint disease) Status: Acute (8) H/O: lung cancer Status: Acute (9) HTN (hypertension) Status: Acute - Assessment and Plan (Free Text) Assessment: RESP STATUS NO SIG CHANGE., CONT NEB BD., PULM TOILET., MONITOR O2 SAT., CXR REVIEWED., CONT AB PER ID. CONSIDER DNR STATUS. PROG POOR., DISCUSSED WITH STAFF AT LENGTH.
--- NOTE | 2017-08-25 20:47 | CP.PCM.PN ---
Subjective - Date & Time of Evaluation Date of Evaluation: 08/25/17 Time of Evaluation: 09:00 - Subjective Subjective: clinically same Objective - Vital Signs/Intake and Output Vital Signs (last 24 hours): Temp Pulse Resp BP Pulse Ox 98.1 F 69 18 175/82 H 99 08/25/17 15:00 08/25/17 15:00 08/25/17 15:00 08/25/17 15:00 08/25/17 15:00 - Medications Medications: Current Medications Acetaminophen (Tylenol 325mg Tab) 650 mg PO Q4 PRN PRN Reason: Pain, Mild (1-3) Aspirin (Aspirin Chewable) 81 mg PO DAILY [facility] Last Admin: 08/25/17 11:00 Dose: 81 mg Carvedilol (Coreg) 6.25 mg PO BID [facility] Last Admin: 08/25/17 18:10 Dose: 6.25 mg Docusate Sodium (Colace) 200 mg PO [facility] Last Admin: 08/24/17 21:09 Dose: 200 mg Gabapentin (Neurontin) 100 mg PO [facility] Last Admin: 08/24/17 21:09 Dose: 100 mg Guaifenesin/Dextromethorphan (Robitussin Dm) 10 ml PO Q12 PRN PRN Reason: Cough Meropenem 1 gm/ Sodium (Chloride) 100 mls @ 200 mls/hr IVPB Q12H [facility] PRN Reason: Protocol Last Admin: 08/25/17 13:40 Dose: 200 mls/hr Multivitamins (Hexavitamin) 1 tab PO DAILY [facility] Last Admin: 08/25/17 11:00 Dose: 1 tab Rosuvastatin Calcium (Crestor) 20 mg PO [facility] Last Admin: 08/24/17 21:09 Dose: 20 mg Tramadol HCl (Ultram) 50 mg PO Q8 PRN PRN Reason: Pain, severe (8-10) Last Admin: 08/16/17 17:10 Dose: 50 mg - Labs Labs: 08/22/17 08:23 08/22/17 08:23 PT 13.2 SECONDS (9.7-12.2) H 08/14/17 14:37 INR 1.2 08/14/17 14:37 APTT 35 SECONDS (21-34) H 08/14/17 14:37 - Constitutional Appears: Well - Head Exam Head Exam: ATRAUMATIC, NORMAL INSPECTION, NORMOCEPHALIC - Eye Exam Eye Exam: EOMI, Normal appearance, PERRL Pupil Exam: NORMAL ACCOMODATION, PERRL - ENT Exam ENT Exam: Mucous Membranes Moist, Normal Exam - Neck Exam Neck Exam: Full ROM, Normal Inspection. absent: Lymphadenopathy - Respiratory Exam Respiratory Exam: Decreased Breath Sounds - Cardiovascular Exam Cardiovascular Exam: REGULAR RHYTHM, +S1, +S2 - GI/Abdominal Exam GI & Abdominal Exam: Soft, Diminished Bowel Sounds - Rectal Exam Rectal Exam: Deferred
--- NOTE | 2017-08-25 21:54 | CP.PCM.PN ---
Subjective - Date & Time of Evaluation Date of Evaluation: 08/25/17 Time of Evaluation: 04:15 - Subjective Subjective: dictated Objective - Vital Signs/Intake and Output Vital Signs (last 24 hours): Temp Pulse Resp BP Pulse Ox 98.1 F 69 18 175/82 H 99 08/25/17 15:00 08/25/17 15:00 08/25/17 15:00 08/25/17 15:00 08/25/17 15:00 - Medications Medications: Current Medications Acetaminophen (Tylenol 325mg Tab) 650 mg PO Q4 PRN PRN Reason: Pain, Mild (1-3) Aspirin (Aspirin Chewable) 81 mg PO DAILY [facility] Last Admin: 08/25/17 11:00 Dose: 81 mg Carvedilol (Coreg) 6.25 mg PO BID [facility] Last Admin: 08/25/17 18:10 Dose: 6.25 mg Docusate Sodium (Colace) 200 mg PO HS [facility] Last Admin: 08/25/17 21:09 Dose: 200 mg Gabapentin (Neurontin) 100 mg PO [facility] Last Admin: 08/25/17 21:09 Dose: 100 mg Guaifenesin/Dextromethorphan (Robitussin Dm) 10 ml PO Q12 PRN PRN Reason: Cough Meropenem 1 gm/ Sodium (Chloride) 100 mls @ 200 mls/hr IVPB Q12H [facility] PRN Reason: Protocol Last Admin: 08/25/17 13:40 Dose: 200 mls/hr Multivitamins (Hexavitamin) 1 tab PO DAILY [facility] Last Admin: 08/25/17 11:00 Dose: 1 tab Rosuvastatin Calcium (Crestor) 20 mg PO [facility] Last Admin: 08/25/17 21:09 Dose: 20 mg Tramadol HCl (Ultram) 50 mg PO Q8 PRN PRN Reason: Pain, severe (8-10) Last Admin: 08/16/17 17:10 Dose: 50 mg - Labs Labs: 08/22/17 08:23 08/22/17 08:23 PT 13.2 SECONDS (9.7-12.2) H 08/14/17 14:37 INR 1.2 08/14/17 14:37 APTT 35 SECONDS (21-34) H 08/14/17 14:37
[2017-08-26] MEDS: Meropenem 1 GM in Sodium Chloride 0.9% 100 ML IVPB SCH ×2 (01:53→13:24)
--- NOTE | 2017-08-26 03:27 | PN ---
DATE: 08/25/2017 SUBJECTIVE: The patient's daughter was at the bedside today, and she was saying that sometimes she looks good and sometimes bad, and today she was opening her eyes a little bit but still she is very weak and frail. PHYSICAL EXAMINATION: VITAL SIGNS: T-max is 98.1, pulse 69, blood pressure 175/82, respirations are 18. HEENT: Head is atraumatic and normocephalic. NECK: Supple. LUNGS: Clear. Decreased breath sounds bilaterally. Poor respiratory effort but not dyspneic. ABDOMEN: Soft and nontender. No guarding, no rigidity present. EXTREMITIES: Have no edema. ASSESSMENT AND PLAN: We did a urine culture which was negative, so we can probably get her off the isolation. 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 So, she can have these surgical changes plus she has affected left main stem and because of cancer and remains ill with failure to thrive. She is on antibiotic at this time; however, urine culture is negative, so we will discontinue isolation. We will follow. The daughter was told about to consider hospice. Adamaris Jordan MD
--- NOTE | 2017-08-26 10:54 | CP.PCM.PN ---
Subjective - Date & Time of Evaluation Date of Evaluation: 08/26/17 Time of Evaluation: 10:53 - Subjective Subjective: PT IN NO DISTRESS. ROS; UNOBTAINABLE Objective - Vital Signs/Intake and Output Vital Signs (last 24 hours): Temp Pulse Resp BP Pulse Ox 97.8 F 71 20 135/79 100 08/26/17 07:37 08/26/17 07:37 08/26/17 07:37 08/26/17 07:37 08/26/17 07:37 Intake and Output: 08/26/17 08/26/17 06:59 18:59 Intake Total 120 Output Total 200 Balance -80 - Medications Medications: Current Medications Acetaminophen (Tylenol 325mg Tab) 650 mg PO Q4 PRN PRN Reason: Pain, Mild (1-3) Aspirin (Aspirin Chewable) 81 mg PO [facility]ILY [facility] Last Admin: 08/25/17 11:00 Dose: 81 mg Carvedilol (Coreg) 6.25 mg PO BID [facility] Last Admin: 08/25/17 18:10 Dose: 6.25 mg Docusate Sodium (Colace) 200 mg PO [facility] Last Admin: 08/25/17 21:09 Dose: 200 mg Gabapentin (Neurontin) 100 mg PO [facility] Last Admin: 08/25/17 21:09 Dose: 100 mg Guaifenesin/Dextromethorphan (Robitussin Dm) 10 ml PO Q12 PRN PRN Reason: Cough Meropenem 1 gm/ Sodium (Chloride) 100 mls @ 200 mls/hr IVPB Q12H [facility] PRN Reason: Protocol Last Admin: 08/26/17 01:53 Dose: 200 mls/hr Multivitamins (Hexavitamin) 1 tab PO DAILY [facility] Last Admin: 08/25/17 11:00 Dose: 1 tab Rosuvastatin Calcium (Crestor) 20 mg PO [facility] Last Admin: 08/25/17 21:09 Dose: 20 mg Tramadol HCl (Ultram) 50 mg PO Q8 PRN PRN Reason: Pain, severe (8-10) Last Admin: 08/16/17 17:10 Dose: 50 mg - Labs Labs: 08/22/17 08:23 08/22/17 08:23 PT 13.2 SECONDS (9.7-12.2) H 08/14/17 14:37 INR 1.2 08/14/17 14:37 APTT 35 SECONDS (21-34) H 08/14/17 14:37 - Constitutional Appears: No Acute Distress, Chronically Ill - Head Exam Head Exam: ATRAUMATIC, NORMOCEPHALIC - Eye Exam Eye Exam: EOMI, Normal appearance - ENT Exam ENT Exam: Mucous Membranes Moist - Neck Exam Neck Exam: Normal Inspection - Respiratory Exam Respiratory Exam: Decreased Breath Sounds. absent: Accessory Muscle Use, Respiratory Distress - Cardiovascular Exam Cardiovascular Exam: RRR, +S1, +S2 - GI/Abdominal Exam GI & Abdominal Exam: Soft - Rectal Exam Rectal Exam: Deferred - Extremities Exam Extremities Exam: absent: Pedal Edema - Back Exam Back Exam: absent: rash noted - Neurological Exam Neurological Exam: Awake Additional comments: NONVERBAL Assessment and Plan (1) Respiratory failure Status: Acute (2) Pneumonia Status: Acute (3) Cachexia Status: Acute (4) Failure to thrive Status: Acute (5) Pleural effusion Status: Acute (6) CVA (cerebral vascular accident) Status: Acute (7) DJD (degenerative joint disease) Status: Acute (8) H/O: lung cancer Status: Acute (9) HTN (hypertension) Status: Acute - Assessment and Plan (Free Text) Assessment: RESP STATUS UNLABORED., CONT PULM TOILET., NEB BD., MONITOR O2 SAT. CXR REVIEWED., AFEBRILE ON AB. PROG POOR., DISCUSSED WITH STAFF AT LENGTH.
[2017-08-26] MEDS: Multiple Vitamins Tab PO SCH (11:45)
--- NOTE | 2017-08-26 15:32 | CP.PCM.PN ---
Subjective - Date & Time of Evaluation Date of Evaluation: 08/26/17 Time of Evaluation: 02:20 - Subjective Subjective: dictated Objective - Vital Signs/Intake and Output Vital Signs (last 24 hours): Temp Pulse Resp BP Pulse Ox 97.8 F 71 20 135/79 100 08/26/17 07:37 08/26/17 07:37 08/26/17 07:37 08/26/17 07:37 08/26/17 07:37 Intake and Output: 08/26/17 08/26/17 06:59 18:59 Intake Total 120 160 Output Total 200 Balance -80 160 - Medications Medications: Current Medications Acetaminophen (Tylenol 325mg Tab) 650 mg PO Q4 PRN PRN Reason: Pain, Mild (1-3) Aspirin (Aspirin Chewable) 81 mg PO DAILY [facility] Last Admin: 08/26/17 11:45 Dose: 81 mg Carvedilol (Coreg) 6.25 mg PO BID [facility] Last Admin: 08/26/17 11:45 Dose: 6.25 mg Docusate Sodium (Colace) 200 mg PO HS [facility] Last Admin: 08/25/17 21:09 Dose: 200 mg Gabapentin (Neurontin) 100 mg PO HS [facility] Last Admin: 08/25/17 21:09 Dose: 100 mg Guaifenesin/Dextromethorphan (Robitussin Dm) 10 ml PO Q12 PRN PRN Reason: Cough Meropenem 1 gm/ Sodium (Chloride) 100 mls @ 200 mls/hr IVPB Q12H [facility] PRN Reason: Protocol Last Admin: 08/26/17 13:24 Dose: 200 mls/hr Multivitamins (Hexavitamin) 1 tab PO DAILY [facility] Last Admin: 08/26/17 11:45 Dose: 1 tab Rosuvastatin Calcium (Crestor) 20 mg PO [facility] Last Admin: 08/25/17 21:09 Dose: 20 mg Tramadol HCl (Ultram) 50 mg PO Q8 PRN PRN Reason: Pain, severe (8-10) Last Admin: 08/16/17 17:10 Dose: 50 mg - Labs Labs: 08/22/17 08:23 08/22/17 08:23 PT 13.2 SECONDS (9.7-12.2) H 08/14/17 14:37 INR 1.2 08/14/17 14:37 APTT 35 SECONDS (21-34) H 08/14/17 14:37
--- NOTE | 2017-08-26 15:32 | CP.PCM.PN ---
Subjective - Date & Time of Evaluation Date of Evaluation: 08/26/17 Time of Evaluation: 09:15 - Subjective Subjective: clinically same Objective - Vital Signs/Intake and Output Vital Signs (last 24 hours): Temp Pulse Resp BP Pulse Ox 97.8 F 71 20 135/79 100 08/26/17 07:37 08/26/17 07:37 08/26/17 07:37 08/26/17 07:37 08/26/17 07:37 Intake and Output: 08/26/17 08/26/17 06:59 18:59 Intake Total 120 160 Output Total 200 Balance -80 160 - Medications Medications: Current Medications Acetaminophen (Tylenol 325mg Tab) 650 mg PO Q4 PRN PRN Reason: Pain, Mild (1-3) Aspirin (Aspirin Chewable) 81 mg PO DAILY [facility] Last Admin: 08/26/17 11:45 Dose: 81 mg Carvedilol (Coreg) 6.25 mg PO BID [facility] Last Admin: 08/26/17 11:45 Dose: 6.25 mg Docusate Sodium (Colace) 200 mg PO HS [facility] Last Admin: 08/25/17 21:09 Dose: 200 mg Gabapentin (Neurontin) 100 mg PO HS [facility] Last Admin: 08/25/17 21:09 Dose: 100 mg Guaifenesin/Dextromethorphan (Robitussin Dm) 10 ml PO Q12 PRN PRN Reason: Cough Meropenem 1 gm/ Sodium (Chloride) 100 mls @ 200 mls/hr IVPB Q12H [facility] PRN Reason: Protocol Last Admin: 08/26/17 13:24 Dose: 200 mls/hr Multivitamins (Hexavitamin) 1 tab PO DAILY [facility] Last Admin: 08/26/17 11:45 Dose: 1 tab Rosuvastatin Calcium (Crestor) 20 mg PO [facility] Last Admin: 08/25/17 21:09 Dose: 20 mg Tramadol HCl (Ultram) 50 mg PO Q8 PRN PRN Reason: Pain, severe (8-10) Last Admin: 08/16/17 17:10 Dose: 50 mg - Labs Labs: 08/22/17 08:23 08/22/17 08:23 PT 13.2 SECONDS (9.7-12.2) H 08/14/17 14:37 INR 1.2 08/14/17 14:37 APTT 35 SECONDS (21-34) H 08/14/17 14:37 - Constitutional Appears: Well - Head Exam Head Exam: ATRAUMATIC, NORMAL INSPECTION, NORMOCEPHALIC - Eye Exam Eye Exam: EOMI, Normal appearance, PERRL Pupil Exam: NORMAL ACCOMODATION, PERRL - ENT Exam ENT Exam: Mucous Membranes Moist, Normal Exam - Neck Exam Neck Exam: Full ROM, Normal Inspection. absent: Lymphadenopathy - Respiratory Exam Respiratory Exam: Decreased Breath Sounds - Cardiovascular Exam Cardiovascular Exam: REGULAR RHYTHM, +S1, +S2 - GI/Abdominal Exam GI & Abdominal Exam: Soft, Diminished Bowel Sounds - Rectal Exam Rectal Exam: Deferred
--- NOTE | 2017-08-26 21:25 | PN ---
DATE: 08/26/2017 INFECTIOUS DISEASE FOLLOWUP SUBJECTIVE: The patient remains very lethargic. Her daughter was today at that the bedside. She asked me what is going on with her as she remained restless and unresponsive. PHYSICAL EXAMINATION: VITAL SIGNS: T-max is 97.8, pulse 71, blood pressure 135/79, respirations are 20. HEENT: Head is atraumatic and normocephalic. NECK: Supple. LUNGS: Decreased breath sounds. HEART: S1 and S2 are regular. ABDOMEN: Soft and nontender. EXTREMITIES: Have no edema. She is very frail, failure to thrive. She has lung CA with mets. At this time, urine culture was negative, so we will discontinue the isolation. The patient's daughter is considering her options, as the patient remains very weak and frail. For now, she is on antibiotics, and I will continue those and we will follow. Adamaris Jordan MD
[2017-08-27] MEDS: Meropenem 1 GM in Sodium Chloride 0.9% 100 ML IVPB SCH ×2 (02:15→13:46)
[2017-08-27] MEDS: Multiple Vitamins Tab PO SCH (13:46)
--- NOTE | 2017-08-27 17:32 | CP.PCM.PN ---
Subjective - Date & Time of Evaluation Date of Evaluation: 08/27/17 Time of Evaluation: 08:30 - Subjective Subjective: clinically same Objective - Vital Signs/Intake and Output Vital Signs (last 24 hours): Temp Pulse Resp BP Pulse Ox 98.3 F 83 20 148/77 100 08/27/17 15:43 08/27/17 15:43 08/27/17 15:43 08/27/17 15:43 08/27/17 15:43 Intake and Output: 08/27/17 08/27/17 06:59 18:59 Intake Total 220 160 Output Total 150 Balance 70 160 - Medications Medications: Current Medications Acetaminophen (Tylenol 325mg Tab) 650 mg PO Q4 PRN PRN Reason: Pain, Mild (1-3) Aspirin (Aspirin Chewable) 81 mg PO DAILY [facility] Last Admin: 08/27/17 13:45 Dose: 81 mg Carvedilol (Coreg) 6.25 mg PO BID [facility] Last Admin: 08/27/17 13:45 Dose: 6.25 mg Docusate Sodium (Colace) 200 mg PO HS [facility] Last Admin: 08/26/17 21:27 Dose: 200 mg Gabapentin (Neurontin) 100 mg PO HS [facility] Last Admin: 08/26/17 21:27 Dose: 100 mg Guaifenesin/Dextromethorphan (Robitussin Dm) 10 ml PO Q12 PRN PRN Reason: Cough Meropenem 1 gm/ Sodium (Chloride) 100 mls @ 200 mls/hr IVPB Q12H [facility] PRN Reason: Protocol Last Admin: 08/27/17 13:46 Dose: 200 mls/hr Multivitamins (Hexavitamin) 1 tab PO DAILY [facility] Last Admin: 08/27/17 13:46 Dose: 1 tab Rosuvastatin Calcium (Crestor) 20 mg PO [facility] Last Admin: 08/26/17 21:27 Dose: 20 mg Tramadol HCl (Ultram) 50 mg PO Q8 PRN PRN Reason: Pain, severe (8-10) Last Admin: 08/16/17 17:10 Dose: 50 mg - Labs Labs: 08/22/17 08:23 08/22/17 08:23 PT 13.2 SECONDS (9.7-12.2) H 08/14/17 14:37 INR 1.2 07/09/18 14:37 APTT 35 SECONDS (21-34) H 08/14/17 14:37 - Constitutional Appears: Well - Head Exam Head Exam: ATRAUMATIC, NORMAL INSPECTION, NORMOCEPHALIC - Eye Exam Eye Exam: EOMI, Normal appearance, PERRL Pupil Exam: NORMAL ACCOMODATION, PERRL - ENT Exam ENT Exam: Mucous Membranes Moist, Normal Exam - Neck Exam Neck Exam: Full ROM, Normal Inspection. absent: Lymphadenopathy - Respiratory Exam Respiratory Exam: Decreased Breath Sounds - Cardiovascular Exam Cardiovascular Exam: REGULAR RHYTHM, +S1, +S2 - GI/Abdominal Exam GI & Abdominal Exam: Soft, Diminished Bowel Sounds - Rectal Exam Rectal Exam: Deferred
--- NOTE | 2017-08-27 23:00 | CP.PCM.PN ---
Subjective - Date & Time of Evaluation Date of Evaluation: 08/27/17 Time of Evaluation: 22:58 - Subjective Subjective: PT IN NO DISTRESS. ROS; UNOBTAINABLE Objective - Vital Signs/Intake and Output Vital Signs (last 24 hours): Temp Pulse Resp BP Pulse Ox 98.3 F 83 20 148/77 100 08/27/17 15:43 08/27/17 15:43 08/27/17 15:43 08/27/17 15:43 08/27/17 15:43 Intake and Output: 08/27/17 08/28/17 18:59 06:59 Intake Total 160 Balance 160 - Medications Medications: Current Medications Acetaminophen (Tylenol 325mg Tab) 650 mg PO Q4 PRN PRN Reason: Pain, Mild (1-3) Aspirin (Aspirin Chewable) 81 mg PO DAILY [facility] Last Admin: 08/27/17 13:45 Dose: 81 mg Carvedilol (Coreg) 6.25 mg PO BID [facility] Last Admin: 08/27/17 18:09 Dose: 6.25 mg Docusate Sodium (Colace) 200 mg PO HS [facility] Last Admin: 08/27/17 22:51 Dose: 200 mg Gabapentin (Neurontin) 100 mg PO HS [facility] Last Admin: 08/27/17 22:51 Dose: 100 mg Guaifenesin/Dextromethorphan (Robitussin Dm) 10 ml PO Q12 PRN PRN Reason: Cough Meropenem 1 gm/ Sodium (Chloride) 100 mls @ 200 mls/hr IVPB Q12H [facility] PRN Reason: Protocol Last Admin: 08/27/17 13:46 Dose: 200 mls/hr Multivitamins (Hexavitamin) 1 tab PO DAILY [facility] Last Admin: 08/27/17 13:46 Dose: 1 tab Rosuvastatin Calcium (Crestor) 20 mg PO HS [facility] Last Admin: 08/27/17 22:51 Dose: 20 mg Tramadol HCl (Ultram) 50 mg PO Q8 PRN PRN Reason: Pain, severe (8-10) Last Admin: 08/16/17 17:10 Dose: 50 mg - Labs Labs: 08/22/17 08:23 08/22/17 08:23 PT 13.2 SECONDS (9.7-12.2) H 08/14/17 14:37 INR 1.2 08/14/17 14:37 APTT 35 SECONDS (21-34) H 08/14/17 14:37 - Constitutional Appears: No Acute Distress, Cachectic, Chronically Ill - Head Exam Head Exam: ATRAUMATIC, NORMOCEPHALIC - Eye Exam Eye Exam: Normal appearance - ENT Exam ENT Exam: Mucous Membranes Dry - Neck Exam Neck Exam: Normal Inspection - Respiratory Exam Respiratory Exam: Decreased Breath Sounds. absent: Respiratory Distress - Cardiovascular Exam Cardiovascular Exam: RRR, +S1, +S2 - GI/Abdominal Exam GI & Abdominal Exam: Soft - Rectal Exam Rectal Exam: Deferred - Extremities Exam Extremities Exam: absent: Pedal Edema - Neurological Exam Additional comments: NONVERBAL., UNRESPONSIVE Assessment and Plan (1) Respiratory failure Status: Acute (2) Pneumonia Status: Acute (3) Cachexia Status: Acute (4) Failure to thrive Status: Acute (5) Pleural effusion Status: Acute (6) CVA (cerebral vascular accident) Status: Acute (7) DJD (degenerative joint disease) Status: Acute (8) H/O: lung cancer Status: Acute (9) HTN (hypertension) Status: Acute - Assessment and Plan (Free Text) Assessment: RESP STATUS NO SIG CHANGE. CONT AB. CONT PULM TOILET. NEB BD. MONITOR O2 SAT. CXR REVIEWED. PROG POOR / DISCUSSED WITH STAFF AT LENGTH.
[2017-08-28] MEDS: Meropenem 1 GM in Sodium Chloride 0.9% 100 ML IVPB SCH ×2 (02:12→13:26)
[2017-08-28] MEDS: Multiple Vitamins Tab PO SCH (10:41)
--- NOTE | 2017-08-28 11:33 | CP.PCM.PN ---
Subjective - Date & Time of Evaluation Date of Evaluation: 08/28/17 Time of Evaluation: 11:28 - Subjective Subjective: PT AWAKE, NO DISTRESS. NONVERBAL. WEAK. ROS; UNOBTAINABLE. Objective - Vital Signs/Intake and Output Vital Signs (last 24 hours): Temp Pulse Resp BP Pulse Ox 97.6 F 83 20 161/81 H 96 08/28/17 07:30 08/28/17 07:30 08/28/17 07:30 08/28/17 07:30 08/28/17 07:30 Intake and Output: 08/28/17 08/28/17 06:59 18:59 Output Total 100 Balance -100 - Medications Medications: Current Medications Acetaminophen (Tylenol 325mg Tab) 650 mg PO Q4 PRN PRN Reason: Pain, Mild (1-3) Aspirin (Aspirin Chewable) 81 mg PO DAILY [facility] Last Admin: 08/28/17 10:41 Dose: 81 mg Carvedilol (Coreg) 6.25 mg PO BID [facility] Last Admin: 08/28/17 10:41 Dose: 6.25 mg Docusate Sodium (Colace) 200 mg PO [facility] Last Admin: 08/27/17 22:51 Dose: 200 mg Gabapentin (Neurontin) 100 mg PO [facility] Last Admin: 08/27/17 22:51 Dose: 100 mg Guaifenesin/Dextromethorphan (Robitussin Dm) 10 ml PO Q12 PRN PRN Reason: Cough Meropenem 1 gm/ Sodium (Chloride) 100 mls @ 200 mls/hr IVPB Q12H [facility] PRN Reason: Protocol Last Admin: 08/28/17 02:12 Dose: 200 mls/hr Multivitamins (Hexavitamin) 1 tab PO DAILY [facility] Last Admin: 08/28/17 10:41 Dose: 1 tab Rosuvastatin Calcium (Crestor) 20 mg PO [facility] Last Admin: 08/27/17 22:51 Dose: 20 mg Tramadol HCl (Ultram) 50 mg PO Q8 PRN PRN Reason: Pain, severe (8-10) Last Admin: 08/16/17 17:10 Dose: 50 mg - Labs Labs: 08/22/17 08:23 08/22/17 08:23 PT 13.2 SECONDS (9.7-12.2) H 08/14/17 14:37 INR 1.2 07/09/18 14:37 APTT 35 SECONDS (21-34) H 08/14/17 14:37 - Constitutional Appears: No Acute Distress, Cachectic, Chronically Ill - Head Exam Head Exam: ATRAUMATIC, NORMOCEPHALIC - Eye Exam Eye Exam: EOMI, Normal appearance - ENT Exam ENT Exam: Mucous Membranes Moist - Respiratory Exam Respiratory Exam: Decreased Breath Sounds. absent: Accessory Muscle Use, Respiratory Distress - Cardiovascular Exam Cardiovascular Exam: RRR, +S1, +S2 - GI/Abdominal Exam GI & Abdominal Exam: Soft - Rectal Exam Rectal Exam: Deferred - Extremities Exam Extremities Exam: absent: Pedal Edema - Back Exam Back Exam: absent: rash noted - Neurological Exam Neurological Exam: Awake Additional comments: NONVERBAL. - Skin Skin Exam: absent: Rash Assessment and Plan (1) Respiratory failure Status: Acute (2) Pneumonia Status: Acute (3) Cachexia Status: Acute (4) Failure to thrive Status: Acute (5) Pleural effusion Status: Acute (6) CVA (cerebral vascular accident) Status: Acute (7) DJD (degenerative joint disease) Status: Acute (8) H/O: lung cancer Status: Acute (9) HTN (hypertension) Status: Acute - Assessment and Plan (Free Text) Assessment: RESP STATUS NO SIG CHANGE., CONT PULM TOILET, NEB BD., TOLERATING O2 2L CONT AB , ON IV MERREM PER ID. CXR REVIEWED. PROG POOR. DISCUSSED WITH STAFF.
--- NOTE | 2017-08-28 13:45 | CP.PCM.PN ---
Subjective - Date & Time of Evaluation Date of Evaluation: 08/28/17 Time of Evaluation: 01:00 - Subjective Subjective: dictated Objective - Vital Signs/Intake and Output Vital Signs (last 24 hours): Temp Pulse Resp BP Pulse Ox 97.6 F 83 20 161/81 H 96 08/28/17 07:30 08/28/17 07:30 08/28/17 07:30 08/28/17 07:30 08/28/17 07:30 Intake and Output: 08/28/17 08/28/17 06:59 18:59 Output Total 100 Balance -100 - Medications Medications: Current Medications Acetaminophen (Tylenol 325mg Tab) 650 mg PO Q4 PRN PRN Reason: Pain, Mild (1-3) Aspirin (Aspirin Chewable) 81 mg PO DAILY [facility] Last Admin: 08/28/17 10:41 Dose: 81 mg Carvedilol (Coreg) 6.25 mg PO BID [facility] Last Admin: 08/28/17 10:41 Dose: 6.25 mg Docusate Sodium (Colace) 200 mg PO [facility] Last Admin: 08/27/17 22:51 Dose: 200 mg Gabapentin (Neurontin) 100 mg PO HS [facility] Last Admin: 08/27/17 22:51 Dose: 100 mg Guaifenesin/Dextromethorphan (Robitussin Dm) 10 ml PO Q12 PRN PRN Reason: Cough Meropenem 1 gm/ Sodium (Chloride) 100 mls @ 200 mls/hr IVPB Q12H [facility] PRN Reason: Protocol Last Admin: 08/28/17 13:26 Dose: 200 mls/hr Multivitamins (Hexavitamin) 1 tab PO DAILY [facility] Last Admin: 08/28/17 10:41 Dose: 1 tab Rosuvastatin Calcium (Crestor) 20 mg PO [facility] Last Admin: 08/27/17 22:51 Dose: 20 mg Tramadol HCl (Ultram) 50 mg PO Q8 PRN PRN Reason: Pain, severe (8-10) Last Admin: 08/16/17 17:10 Dose: 50 mg - Labs Labs: 08/22/17 08:23 08/22/17 08:23 PT 13.2 SECONDS (9.7-12.2) H 08/14/17 14:37 INR 1.2 08/14/17 14:37 APTT 35 SECONDS (21-34) H 08/14/17 14:37
--- NOTE | 2017-08-28 19:01 | CP.PCM.PN ---
Subjective - Date & Time of Evaluation Date of Evaluation: 08/28/17 Time of Evaluation: 08:30 - Subjective Subjective: clinically same Objective - Vital Signs/Intake and Output Vital Signs (last 24 hours): Temp Pulse Resp BP Pulse Ox 97.6 F 83 20 161/81 H 96 08/28/17 07:30 08/28/17 07:30 08/28/17 07:30 08/28/17 07:30 08/28/17 07:30 Intake and Output: 08/28/17 08/29/17 18:59 06:59 Intake Total 250 Balance 250 - Medications Medications: Current Medications Acetaminophen (Tylenol 325mg Tab) 650 mg PO Q4 PRN PRN Reason: Pain, Mild (1-3) Aspirin (Aspirin Chewable) 81 mg PO DAILY [facility] Last Admin: 08/28/17 10:41 Dose: 81 mg Carvedilol (Coreg) 6.25 mg PO BID [facility] Last Admin: 08/28/17 18:44 Dose: 6.25 mg Docusate Sodium (Colace) 200 mg PO [facility] Last Admin: 08/27/17 22:51 Dose: 200 mg Gabapentin (Neurontin) 100 mg PO [facility] Last Admin: 08/27/17 22:51 Dose: 100 mg Guaifenesin/Dextromethorphan (Robitussin Dm) 10 ml PO Q12 PRN PRN Reason: Cough Multivitamins (Hexavitamin) 1 tab PO DAILY [facility] Last Admin: 08/28/17 10:41 Dose: 1 tab Rosuvastatin Calcium (Crestor) 20 mg PO [facility] Last Admin: 08/27/17 22:51 Dose: 20 mg Tramadol HCl (Ultram) 50 mg PO Q8 PRN PRN Reason: Pain, severe (8-10) Last Admin: 08/16/17 17:10 Dose: 50 mg - Labs Labs: 08/22/17 08:23 08/22/17 08:23 PT 13.2 SECONDS (9.7-12.2) H 08/14/17 14:37 INR 1.2 08/14/17 14:37 APTT 35 SECONDS (21-34) H 08/14/17 14:37 - Constitutional Appears: Well - Head Exam Head Exam: ATRAUMATIC, NORMAL INSPECTION, NORMOCEPHALIC - Eye Exam Eye Exam: EOMI, Normal appearance, PERRL Pupil Exam: NORMAL ACCOMODATION, PERRL - ENT Exam ENT Exam: Mucous Membranes Moist, Normal Exam - Neck Exam Neck Exam: Full ROM, Normal Inspection. absent: Lymphadenopathy - Respiratory Exam Respiratory Exam: Decreased Breath Sounds - Cardiovascular Exam Cardiovascular Exam: REGULAR RHYTHM, +S1, +S2 - GI/Abdominal Exam GI & Abdominal Exam: Soft, Hypoactive Bowel Sounds - Rectal Exam Rectal Exam: Deferred
--- NOTE | 2017-08-28 19:44 | PN ---
DATE: 08/28/2017 SUBJECTIVE: The patient is afebrile, is nonverbal, lethargic, not eating or drinking. She appears terminally ill. PHYSICAL EXAMINATION: GENERAL: Her two daughters are at the bedside and they are requesting to discontinue the antibiotics as they think their mother will not be improving as she looks . VITAL SIGNS: T-max is 97.6, pulse 83, blood pressure 161/81, and respirations are 20. HEENT: Head is atraumatic. NECK: Supple. LUNGS: Clear. HEART: S1 and S2 regular. ABDOMEN: Soft and nontender. No guarding and no rigidity present. EXTREMITIES: No edema, clubbing, or cyanosis. LABORATORY DATA: We have not done any recent labs, but she had ESBL in the urine, which has become better and she does have lung cancer with mets and also had UTI with E. coli and is terminally ill. PLAN: At this time, they have asked me to discontinue the antibiotics and also other medications and they are looking for a home hospice , which I have already put in the order for and we will follow. PROGNOSIS: Guarded and the family is aware of it. Adamaris Jordan MD
--- NOTE | 2017-08-29 10:18 | CP.PCM.CON ---
History of Present Illness - History of Present Illness History of Present Illness: Palliative consult requested by Doctor Jordan for goals of care discussion Patient is a 77 yo female admitted with generalized weakness and adult failure to thrive. CT head upon admission was negative acute findings. CT chest was significant for large left lung mass what caused complete Left lung collapse. WBC was 23.0, which has decreased to 13.0. Patient has been treated for 2 weeks now at the hospital but her condition has not improved. Doctor Nikki feels that further Medical manegement is not beneficial for patient any more and comfort care only would be appropriate level of care for this patient. PMH: HTN, CVA, lung CA, TIA Soc. Hx: lives at home , single, son and daughter involved in care Fam. Hx: Unobtainable from patient due to condition Review of Systems - Review of Systems All systems: reviewed and no additional remarkable complaints except Review of Systems: ROS unobtainable from patient due to lethargy. Per nursing patient has been lethargic Past Patient History - Infectious Disease Hx of Infectious Diseases: None - Past Medical History & Family History Past Medical History?: Yes - Past Social History Smoking Status: Never Smoked - CARDIAC Hx Cardiac Disorders: Yes Hx Hypertension: Yes - PULMONARY Hx Respiratory Disorders: Yes Hx Lung Cancer: Yes - NEUROLOGICAL HX Cerebrovascular Accident: Yes - HEENT Hx HEENT Problems: Yes Hx Cataracts: Yes (EXT RIGHT EYE IOL) - RENAL Hx Chronic Kidney Disease: No - ENDOCRINE/METABOLIC Hx Endocrine Disorders: No - HEMATOLOGICAL/ONCOLOGICAL Hx Blood Disorders: Yes Hx Cancer: Yes (lung) - INTEGUMENTARY Hx Dermatological Problems: No - MUSCULOSKELETAL/RHEUMATOLOGICAL Hx Arthritis: Yes (NECK DJD) - GASTROINTESTINAL Hx Gastrointestinal Disorders: Yes Hx Gastroesophageal Reflux: Yes - GENITOURINARY/GYNECOLOGICAL Hx Genitourinary Disorders: No - PSYCHIATRIC Hx Substance Use: No - SURGICAL HISTORY Hx Surgeries: Yes Hx Cataract Extraction: Yes (RIGHT IOL) Other/Comment: LUNG BX - ANESTHESIA Hx Anesthesia: Yes Hx Anesthesia Reactions: Yes Hx Malignant Hyperthermia: No Meds Allergies/Adverse Reactions: Allergies Allergy/AdvReac Type Severity Reaction Status Date / Time No Known Allergies Allergy Verified 08/14/17 14:30 - Medications Medications: Current Medications Acetaminophen (Tylenol 325mg Tab) 650 mg PO Q4 PRN PRN Reason: Pain, Mild (1-3) Aspirin (Aspirin Chewable) 81 mg PO DAILY [facility] Last Admin: 08/28/17 10:41 Dose: 81 mg Carvedilol (Coreg) 6.25 mg PO BID [facility] Last Admin: 08/28/17 18:44 Dose: 6.25 mg Docusate Sodium (Colace) 200 mg PO [facility] Last Admin: 08/28/17 22:19 Dose: 200 mg Gabapentin (Neurontin) 100 mg PO [facility] Last Admin: 08/28/17 22:19 Dose: 100 mg Guaifenesin/Dextromethorphan (Robitussin Dm) 10 ml PO Q12 PRN PRN Reason: Cough Multivitamins (Hexavitamin) 1 tab PO DAILY [facility] Last Admin: 08/28/17 10:41 Dose: 1 tab Rosuvastatin Calcium (Crestor) 20 mg PO [facility] Last Admin: 08/28/17 22:19 Dose: 20 mg Tramadol HCl (Ultram) 50 mg PO Q8 PRN PRN Reason: Pain, severe (8-10) Last Admin: 08/16/17 17:10 Dose: 50 mg Physical Exam - Constitutional Appears: In Acute Distress, Chronically Ill - Head Exam Head Exam: ATRAUMATIC, NORMAL INSPECTION, NORMOCEPHALIC - Eye Exam Eye Exam: EOMI, Normal appearance, PERRL Pupil Exam: NORMAL ACCOMODATION, PERRL - ENT Exam ENT Exam: Mucous Membranes Dry - Neck Exam Neck exam: Positive for: Tenderness - Respiratory Exam Respiratory Exam: Decreased Breath Sounds, Prolonged Expiratory Phase - Cardiovascular Exam Cardiovascular Exam: Tachycardia, Irregular Rhythm - GI/Abdominal Exam GI & Abdominal Exam: Hypoactive Bowel Sounds, Soft - Rectal Exam Rectal Exam: Deferred - Extremities Exam Extremities exam: Positive for: tenderness - Back Exam Back exam: NORMAL INSPECTION - Neurological Exam Neurological exam: Motor Sensory Deficit - Psychiatric Exam Psychiatric exam: Flat Affect - Skin Skin Exam: Dry, Intact, Normal Color, Warm Results - Vital Signs Recent Vital Signs: Last Vital Signs Temp 98.7 F 08/29/17 07:20 Pulse 78 08/29/17 07:20 Resp 18 08/29/17 07:20 BP 147/74 08/29/17 07:20 Pulse Ox 98 08/29/17 07:20 - Labs Result Diagrams: 08/22/17 08:23 08/22/17 08:23 Labs: Laboratory Results - last 24 hr 08/29/17 09:57 POC Glucose (mg/dL) 103 Assessment & Plan - Assessment and Plan (Free Text) Assessment: Palliative consult FULL Code, there is no Advance directive on chart, PPS 10% I reviewed Medical records, all diagnostic studies, examined patient in the bed. Patient is lethargic, minimal responses to tactile stimuli, does not fallow commends. Diminished corneal reflex. Mouth open, breaths trough mouth. Oral mucous is dry. I do not think patient is able to swallow at this condition. Breathing is shallow with prolonged expiratory phase. Abdomen soft and flat. Breakfast tray at bed side untouched. I was very concerned with patient's condition as my impression was that patient was dying. Nurses came, all vitals checked and were stable. However, I called son and asked for immediate meeting. He agreed and was on his way. BP 147/74, HR 78, O2Sat 98% O2 2 l NC WBC 13.7, Hb 10.9, K 3.4, BUN 22, Data Center Architect 0.4, Glucose 86 11am Family meeting attended by patient's 3 daughters. Two of them live in [facility] and one just came from [facility] to visit her mother. In Dem[employer] translation used for translation to Hinduism. I reviewed patient's present clinical presentation and related her symptoms to cancer diagnosis and collapsed left lung. Family stated understanding of condition and is aware of poor prognosis 2nd to cancer diagnosis. I elicited their expectations of care. Family's primary concern is patient's comfort. They know, patient will not get better and want her to peacefully. I offered plenty information about comfort care at home vs NH. Family was concerned about lack of support at home as all of them are working. Family prefers patient remains here at the hospital as long as needed, than transferred to NH . Patient's decreased PO intake and risks of aspiration discussed. Family prefers to feed patient home made food as tolerated. Family was strongly opposing PEG. I supported them. POL introduced. I made sure family understood DNR/DNI status. Family agreed to DNR/DNI This was communicated to Doctor Silke Ramirez and shared with nursing. Impression * Chronically ill lady in respiratory distress due to left lung collapse 2nd to lung CA * Patient has entered end of her life * Lethargy * General weakness * Decreased PO intake * Family understands diagnosis and poor prognosis and advocates for comfort measures only Suggestion * O2 via NC * Spoon feed at each meal, aspiration precautions * Bed rest * Would consider switching PO meds to IV form where possible as patient does not take PO meds readily * Would consider comfort only measures; STOP further diagnostic studies and blood work * Supportive care only for symptoms management * Hospice eval for In House admission if possible * DNR/DNI Advance care planing 55 min .
[2017-08-29] MEDS: Multiple Vitamins Tab PO SCH (11:12)
--- NOTE | 2017-08-29 12:39 | CP.PCM.PN ---
Subjective - Date & Time of Evaluation Date of Evaluation: 08/29/17 Time of Evaluation: 12:36 - Subjective Subjective: PT IN NO DISTRESS. ROS; UNOBTAINABLE. Objective - Vital Signs/Intake and Output Vital Signs (last 24 hours): Temp Pulse Resp BP Pulse Ox 98.7 F 78 18 147/74 98 08/29/17 07:20 08/29/17 07:20 08/29/17 07:20 08/29/17 07:20 08/29/17 07:20 Intake and Output: 08/29/17 08/29/17 06:59 18:59 Output Total 150 Balance -150 - Medications Medications: Current Medications Acetaminophen (Tylenol 325mg Tab) 650 mg PO Q4 PRN PRN Reason: Pain, Mild (1-3) Aspirin (Aspirin Chewable) 81 mg PO DAILY [facility] Last Admin: 08/29/17 11:12 Dose: 81 mg Carvedilol (Coreg) 6.25 mg PO BID [facility] Last Admin: 08/29/17 11:12 Dose: 6.25 mg Docusate Sodium (Colace) 200 mg PO [facility] Last Admin: 08/28/17 22:19 Dose: 200 mg Gabapentin (Neurontin) 100 mg PO [facility] Last Admin: 08/28/17 22:19 Dose: 100 mg Guaifenesin/Dextromethorphan (Robitussin Dm) 10 ml PO Q12 PRN PRN Reason: Cough Multivitamins (Hexavitamin) 1 tab PO DAILY [facility] Last Admin: 08/29/17 11:12 Dose: 1 tab Rosuvastatin Calcium (Crestor) 20 mg PO [facility] Last Admin: 08/28/17 22:19 Dose: 20 mg Tramadol HCl (Ultram) 50 mg PO Q8 PRN PRN Reason: Pain, severe (8-10) Last Admin: 08/16/17 17:10 Dose: 50 mg - Labs Labs: 08/22/17 08:23 08/22/17 08:23 PT 13.2 SECONDS (9.7-12.2) H 08/14/17 14:37 INR 1.2 08/14/17 14:37 APTT 35 SECONDS (21-34) H 08/14/17 14:37 - Constitutional Appears: No Acute Distress, Cachectic, Chronically Ill - Head Exam Head Exam: ATRAUMATIC, NORMOCEPHALIC - Eye Exam Eye Exam: Normal appearance - ENT Exam ENT Exam: Mucous Membranes Moist - Respiratory Exam Respiratory Exam: Decreased Breath Sounds. absent: Accessory Muscle Use, Wheezes, Respiratory Distress - Cardiovascular Exam Cardiovascular Exam: RRR, +S1, +S2 - GI/Abdominal Exam GI & Abdominal Exam: Soft - Rectal Exam Rectal Exam: Deferred - Extremities Exam Extremities Exam: absent: Pedal Edema - Neurological Exam Neurological Exam: Awake Additional comments: NONVERBAL. Assessment and Plan (1) Respiratory failure Status: Acute (2) Pneumonia Status: Acute (3) Cachexia Status: Acute (4) Failure to thrive Status: Acute (5) Pleural effusion Status: Acute (6) CVA (cerebral vascular accident) Status: Acute (7) DJD (degenerative joint disease) Status: Acute (8) H/O: lung cancer Status: Acute (9) HTN (hypertension) Status: Acute - Assessment and Plan (Free Text) Assessment: RESP STATUS UNLABORED., CONT PULM TOILET., NEB BD., TOLERATING O2 AT 2L., POOR PO INTAKE. CXR REVIEWED. ID F/U NOTED, NOW OFF AB PER FAMILY REQUEST. FOR [facility]. PROG GRIM., DISCUSSED WITH STAFF AT LENGTH.
--- NOTE | 2017-08-29 17:59 | CP.PCM.PN ---
Subjective - Date & Time of Evaluation Date of Evaluation: 08/29/17 Time of Evaluation: 08:40 - Subjective Subjective: clinically same Objective - Vital Signs/Intake and Output Vital Signs (last 24 hours): Temp Pulse Resp BP Pulse Ox 97.8 F 61 18 143/69 100 08/29/17 15:55 08/29/17 15:55 08/29/17 15:55 08/29/17 15:55 08/29/17 15:55 Intake and Output: 08/29/17 08/29/17 06:59 18:59 Intake Total 50 Output Total 150 Balance -150 50 - Medications Medications: Current Medications Acetaminophen (Tylenol 325mg Tab) 650 mg PO Q4 PRN PRN Reason: Pain, Mild (1-3) Aspirin (Aspirin Chewable) 81 mg PO DAILY [facility] Last Admin: 08/29/17 11:12 Dose: 81 mg Carvedilol (Coreg) 6.25 mg PO BID [facility] Last Admin: 08/29/17 11:12 Dose: 6.25 mg Docusate Sodium (Colace) 200 mg PO [facility] Last Admin: 08/28/17 22:19 Dose: 200 mg Gabapentin (Neurontin) 100 mg PO [facility] Last Admin: 08/28/17 22:19 Dose: 100 mg Guaifenesin/Dextromethorphan (Robitussin Dm) 10 ml PO Q12 PRN PRN Reason: Cough Multivitamins (Hexavitamin) 1 tab PO DAILY [facility] Last Admin: 08/29/17 11:12 Dose: 1 tab Rosuvastatin Calcium (Crestor) 20 mg PO [facility] Last Admin: 08/28/17 22:19 Dose: 20 mg Tramadol HCl (Ultram) 50 mg PO Q8 PRN PRN Reason: Pain, severe (8-10) Last Admin: 08/16/17 17:10 Dose: 50 mg - Labs Labs: 08/22/17 08:23 08/22/17 08:23 PT 13.2 SECONDS (9.7-12.2) H 08/14/17 14:37 INR 1.2 08/14/17 14:37 APTT 35 SECONDS (21-34) H 08/14/17 14:37 - Constitutional Appears: Well - Head Exam Head Exam: ATRAUMATIC, NORMAL INSPECTION, NORMOCEPHALIC - Eye Exam Eye Exam: EOMI, Normal appearance, PERRL Pupil Exam: NORMAL ACCOMODATION, PERRL - ENT Exam ENT Exam: Mucous Membranes Moist, Normal Exam - Neck Exam Neck Exam: Full ROM, Normal Inspection. absent: Lymphadenopathy - Respiratory Exam Respiratory Exam: Decreased Breath Sounds - Cardiovascular Exam Cardiovascular Exam: REGULAR RHYTHM, +S1, +S2 - GI/Abdominal Exam GI & Abdominal Exam: Soft, Diminished Bowel Sounds - Rectal Exam Rectal Exam: Deferred
--- NOTE | 2017-08-30 10:17 | CP.PCM.PN ---
Subjective - Date & Time of Evaluation Date of Evaluation: 08/30/17 Time of Evaluation: 10:12 - Subjective Subjective: PT AWAKE, NONVERBAL. ROS; UNOBTAINABLE Objective - Vital Signs/Intake and Output Vital Signs (last 24 hours): Temp Pulse Resp BP Pulse Ox 98.0 F 59 L 20 149/69 100 08/30/17 08:00 08/30/17 08:00 08/30/17 08:00 08/30/17 08:00 08/30/17 08:00 Intake and Output: 08/30/17 08/30/17 06:59 18:59 Intake Total 120 Output Total 150 Balance -30 - Medications Medications: Current Medications Docusate Sodium (Colace) 200 mg PO [facility] Last Admin: 08/29/17 22:01 Dose: 200 mg Gabapentin (Neurontin) 100 mg PO [facility] Last Admin: 08/29/17 22:01 Dose: 100 mg Rosuvastatin Calcium (Crestor) 20 mg PO [facility] Last Admin: 08/29/17 22:01 Dose: 20 mg - Labs Labs: 08/22/17 08:23 08/22/17 08:23 PT 13.2 SECONDS (9.7-12.2) H 08/14/17 14:37 INR 1.2 08/14/17 14:37 APTT 35 SECONDS (21-34) H 08/14/17 14:37 - Constitutional Appears: No Acute Distress, Cachectic, Chronically Ill - Head Exam Head Exam: ATRAUMATIC, NORMOCEPHALIC - Eye Exam Eye Exam: Normal appearance - ENT Exam ENT Exam: Mucous Membranes Dry - Neck Exam Neck Exam: Normal Inspection - Respiratory Exam Respiratory Exam: Decreased Breath Sounds. absent: Accessory Muscle Use, Respiratory Distress - Cardiovascular Exam Cardiovascular Exam: RRR, +S1, +S2 - GI/Abdominal Exam GI & Abdominal Exam: Soft - Rectal Exam Rectal Exam: Deferred - Extremities Exam Extremities Exam: absent: Pedal Edema - Neurological Exam Neurological Exam: Awake Additional comments: NONVERBAL - Skin Skin Exam: absent: Rash Assessment and Plan (1) Respiratory failure Status: Acute (2) Pneumonia Status: Acute (3) Cachexia Status: Acute (4) Failure to thrive Status: Acute (5) Pleural effusion Status: Acute (6) CVA (cerebral vascular accident) Status: Acute (7) DJD (degenerative joint disease) Status: Acute (8) H/O: lung cancer Status: Acute (9) HTN (hypertension) Status: Acute - Assessment and Plan (Free Text) Assessment: RESP STATUS UNLABORED. CONT PULM TOILET., NEB BD., O2 SUPP, TOLERATING 2L. ASP PRECAUTIONS., PO DIET WITH FAMILY ASSISTANCE. CXR REVIEWED. DNR/ DNI NOTED. PROG GRIM. DISCUSSED WITH STAFF AT LENGTH.
[2017-08-30] MEDS: Multiple Vitamins Tab PO SCH (11:00)
--- NOTE | 2017-08-30 17:49 | CP.PCM.PN ---
Subjective - Date & Time of Evaluation Date of Evaluation: 08/30/17 Time of Evaluation: 08:40 - Subjective Subjective: clinically same Objective - Vital Signs/Intake and Output Vital Signs (last 24 hours): Temp Pulse Resp BP Pulse Ox 98.1 F 73 18 158/73 H 100 08/30/17 15:36 08/30/17 15:36 08/30/17 15:36 08/30/17 15:36 08/30/17 15:36 Intake and Output: 08/30/17 08/30/17 06:59 18:59 Intake Total 120 240 Output Total 150 50 Balance -30 190 - Medications Medications: Current Medications Docusate Sodium (Colace) 200 mg PO HS [facility] Last Admin: 08/29/17 22:01 Dose: 200 mg Gabapentin (Neurontin) 100 mg PO HS [facility] Last Admin: 08/29/17 22:01 Dose: 100 mg Rosuvastatin Calcium (Crestor) 20 mg PO [facility] Last Admin: 08/29/17 22:01 Dose: 20 mg - Labs Labs: 08/22/17 08:23 08/22/17 08:23 PT 13.2 SECONDS (9.7-12.2) H 08/14/17 14:37 INR 1.2 08/14/17 14:37 APTT 35 SECONDS (21-34) H 08/14/17 14:37 - Constitutional Appears: Well - Head Exam Head Exam: ATRAUMATIC, NORMAL INSPECTION, NORMOCEPHALIC - Eye Exam Eye Exam: EOMI, Normal appearance, PERRL Pupil Exam: NORMAL ACCOMODATION, PERRL - ENT Exam ENT Exam: Mucous Membranes Moist, Normal Exam - Neck Exam Neck Exam: Full ROM, Normal Inspection. absent: Lymphadenopathy - Respiratory Exam Respiratory Exam: Decreased Breath Sounds - Cardiovascular Exam Cardiovascular Exam: REGULAR RHYTHM, +S1, +S2 - GI/Abdominal Exam GI & Abdominal Exam: Soft, Diminished Bowel Sounds - Rectal Exam Rectal Exam: Deferred
--- NOTE | 2017-08-31 16:56 | CP.PCM.PN ---
Subjective - Date & Time of Evaluation Date of Evaluation: 08/31/17 Time of Evaluation: 09:00 - Subjective Subjective: clinically same Objective - Vital Signs/Intake and Output Vital Signs (last 24 hours): Temp Pulse Resp BP Pulse Ox 97.3 F L 69 20 164/81 H 96 08/31/17 15:37 08/31/17 15:37 08/31/17 15:37 08/31/17 15:37 08/31/17 15:37 Intake and Output: 08/31/17 08/31/17 06:59 18:59 Intake Total 120 Output Total 50 20 Balance 70 -20 - Medications Medications: Current Medications Docusate Sodium (Colace) 200 mg PO HS [facility] B[facility]S AT [facility] Last Admin: 08/30/17 21:42 Dose: 200 mg Gabapentin (Neurontin) 100 mg PO HS [facility] 234 BEDS AT [facility] Last Admin: 08/30/17 21:42 Dose: 100 mg Rosuvastatin Calcium (Crestor) 20 mg PO HS [facility] 234 BEDS AT [facility] Last Admin: 08/30/17 21:42 Dose: 20 mg - Labs Labs: 08/22/17 08:23 08/22/17 08:23 PT 13.2 SECONDS (9.7-12.2) H 08/14/17 14:37 INR 1.2 08/14/17 14:37 APTT 35 SECONDS (21-34) H 08/14/17 14:37 - Constitutional Appears: Well - Head Exam Head Exam: ATRAUMATIC, NORMAL INSPECTION, NORMOCEPHALIC - Eye Exam Eye Exam: EOMI, Normal appearance, PERRL Pupil Exam: NORMAL ACCOMODATION, PERRL - ENT Exam ENT Exam: Mucous Membranes Moist, Normal Exam - Neck Exam Neck Exam: Full ROM, Normal Inspection. absent: Lymphadenopathy - Respiratory Exam Respiratory Exam: Decreased Breath Sounds - Cardiovascular Exam Cardiovascular Exam: REGULAR RHYTHM, +S1, +S2 - GI/Abdominal Exam GI & Abdominal Exam: Soft, Diminished Bowel Sounds - Rectal Exam Rectal Exam: Deferred
--- NOTE | 2017-08-31 19:04 | CP.PCM.PN ---
Subjective - Date & Time of Evaluation Date of Evaluation: 08/31/17 Time of Evaluation: 19:01 - Subjective Subjective: PT IN NO DISTRESS. ROS; UNOBTAINABLE. Objective - Vital Signs/Intake and Output Vital Signs (last 24 hours): Temp Pulse Resp BP Pulse Ox 97.3 F L 69 20 164/81 H 96 08/31/17 15:37 08/31/17 15:37 08/31/17 15:37 08/31/17 15:37 08/31/17 15:37 Intake and Output: 08/31/17 09/01/17 18:59 06:59 Output Total 20 Balance -20 - Medications Medications: Current Medications Docusate Sodium (Colace) 200 mg PO HS [facility] Last Admin: 08/30/17 21:42 Dose: 200 mg Gabapentin (Neurontin) 100 mg PO [facility] Last Admin: 08/30/17 21:42 Dose: 100 mg Rosuvastatin Calcium (Crestor) 20 mg PO [facility] Last Admin: 08/30/17 21:42 Dose: 20 mg - Labs Labs: 08/22/17 08:23 08/22/17 08:23 PT 13.2 SECONDS (9.7-12.2) H 08/14/17 14:37 INR 1.2 08/14/17 14:37 APTT 35 SECONDS (21-34) H 08/14/17 14:37 - Constitutional Appears: No Acute Distress, Cachectic, Chronically Ill - Head Exam Head Exam: ATRAUMATIC, NORMOCEPHALIC - Eye Exam Eye Exam: Normal appearance - ENT Exam ENT Exam: Mucous Membranes Dry - Neck Exam Neck Exam: Normal Inspection - Respiratory Exam Respiratory Exam: Decreased Breath Sounds. absent: Accessory Muscle Use, Wheezes, Respiratory Distress - Cardiovascular Exam Cardiovascular Exam: RRR, +S1, +S2 - GI/Abdominal Exam GI & Abdominal Exam: Soft - Rectal Exam Rectal Exam: Deferred - Extremities Exam Extremities Exam: absent: Pedal Edema - Back Exam Back Exam: absent: CVA tenderness (L), CVA tenderness (R) - Neurological Exam Additional comments: NONVERBAL - Skin Skin Exam: absent: Rash Assessment and Plan (1) Respiratory failure Status: Acute (2) Pneumonia Status: Acute (3) Cachexia Status: Acute (4) Failure to thrive Status: Acute (5) Pleural effusion Status: Acute (6) CVA (cerebral vascular accident) Status: Acute (7) DJD (degenerative joint disease) Status: Acute (8) H/O: lung cancer Status: Acute (9) HTN (hypertension) Status: Acute - Assessment and Plan (Free Text) Assessment: RESP STATUS UNLABORED., CONT PULM TOILET.,MONITOR O2 SAT. ADEQ OXYGENATION., CXR REVIEWED. POOR PO INTAKE., PROG GRIM, FAMILY AWARE. DNR/ DNI NOTED. DISCUSSED WITH STAFF AND FAMILY AT BEDSIDE.
--- NOTE | 2017-09-01 18:58 | CP.PCM.PN ---
Subjective - Date & Time of Evaluation Date of Evaluation: 09/01/17 Time of Evaluation: 18:55 - Subjective Subjective: PT IN NO DISTRESS. ROS; UNOBTAINABLE. Objective - Vital Signs/Intake and Output Vital Signs (last 24 hours): Temp Pulse Resp BP Pulse Ox 98.4 F 94 H 18 156/86 H 97 09/01/17 15:58 09/01/17 15:58 09/01/17 15:58 09/01/17 15:58 09/01/17 15:58 Intake and Output: 09/01/17 09/01/17 06:59 18:59 Output Total 600 Balance -600 - Medications Medications: Current Medications Docusate Sodium (Colace) 200 mg PO HS [facility] Last Admin: 08/31/17 21:31 Dose: Not Given Gabapentin (Neurontin) 100 mg PO [facility] Last Admin: 08/31/17 21:31 Dose: Not Given Rosuvastatin Calcium (Crestor) 20 mg PO [facility] Last Admin: 08/31/17 21:31 Dose: Not Given - Labs Labs: 08/22/17 08:23 08/22/17 08:23 PT 13.2 SECONDS (9.7-12.2) H 08/14/17 14:37 INR 1.2 08/14/17 14:37 APTT 35 SECONDS (21-34) H 08/14/17 14:37 - Constitutional Appears: No Acute Distress, Cachectic, Chronically Ill - Head Exam Head Exam: ATRAUMATIC, NORMOCEPHALIC - Eye Exam Eye Exam: EOMI, Normal appearance - ENT Exam ENT Exam: Mucous Membranes Dry - Neck Exam Neck Exam: Normal Inspection - Respiratory Exam Respiratory Exam: Decreased Breath Sounds. absent: Accessory Muscle Use, Wheezes, Respiratory Distress - Cardiovascular Exam Cardiovascular Exam: RRR, +S1, +S2 - GI/Abdominal Exam GI & Abdominal Exam: Soft - Rectal Exam Rectal Exam: Deferred - Extremities Exam Extremities Exam: absent: Pedal Edema - Neurological Exam Neurological Exam: Awake Additional comments: NONVERBAL Assessment and Plan (1) Respiratory failure Status: Acute (2) Pneumonia Status: Acute (3) Cachexia Status: Acute (4) Failure to thrive Status: Acute (5) Pleural effusion Status: Acute (6) CVA (cerebral vascular accident) Status: Acute (7) DJD (degenerative joint disease) Status: Acute (8) H/O: lung cancer Status: Acute (9) HTN (hypertension) Status: Acute - Assessment and Plan (Free Text) Assessment: RESP STATUS UNLABORED/., CONT PULM TOILET., ADEQ OXYGENATION., CXR REVIEWED., ASP PRECAUTIONS., MINIMAL PO INTAKE. DNR/DNI. PROG TERMINAL, FAMILY AWARE, GATHERED AT BEDSIDE. DISCUSSED WITH STAFF AND FAMILY AT BEDSIDE.
--- NOTE | 2017-09-01 18:59 | CP.PCM.PN ---
Subjective - Date & Time of Evaluation Date of Evaluation: 09/01/17 Time of Evaluation: 07:40 - Subjective Subjective: clinically same Objective - Vital Signs/Intake and Output Vital Signs (last 24 hours): Temp Pulse Resp BP Pulse Ox 98.4 F 94 H 18 156/86 H 97 09/01/17 15:58 09/01/17 15:58 09/01/17 15:58 09/01/17 15:58 09/01/17 15:58 Intake and Output: 09/01/17 09/01/17 06:59 18:59 Output Total 600 Balance -600 - Medications Medications: Current Medications Docusate Sodium (Colace) 200 mg PO HS [facility] Last Admin: 08/31/17 21:31 Dose: Not Given Gabapentin (Neurontin) 100 mg PO HS [facility] Last Admin: 08/31/17 21:31 Dose: Not Given Rosuvastatin Calcium (Crestor) 20 mg PO HS [facility] Last Admin: 08/31/17 21:31 Dose: Not Given - Labs Labs: 08/22/17 08:23 08/22/17 08:23 PT 13.2 SECONDS (9.7-12.2) H 08/14/17 14:37 INR 1.2 08/14/17 14:37 APTT 35 SECONDS (21-34) H 08/14/17 14:37 - Constitutional Appears: Well - Head Exam Head Exam: ATRAUMATIC, NORMAL INSPECTION, NORMOCEPHALIC - Eye Exam Eye Exam: EOMI, Normal appearance, PERRL Pupil Exam: NORMAL ACCOMODATION, PERRL - ENT Exam ENT Exam: Mucous Membranes Moist, Normal Exam - Neck Exam Neck Exam: Full ROM, Normal Inspection. absent: Lymphadenopathy - Respiratory Exam Respiratory Exam: Decreased Breath Sounds - Cardiovascular Exam Cardiovascular Exam: REGULAR RHYTHM, +S1, +S2 - GI/Abdominal Exam GI & Abdominal Exam: Soft, Diminished Bowel Sounds - Rectal Exam Rectal Exam: Deferred
--- NOTE | 2017-09-02 18:01 | CP.PCM.PN ---
Subjective - Date & Time of Evaluation Date of Evaluation: 09/02/17 Time of Evaluation: 07:00 - Subjective Subjective: clinically same Objective - Vital Signs/Intake and Output Vital Signs (last 24 hours): Temp Pulse Resp BP Pulse Ox 98.2 F 98 H 20 124/73 95 09/02/17 08:08 09/02/17 08:08 09/02/17 08:08 09/02/17 08:08 09/02/17 08:08 - Medications Medications: Current Medications Docusate Sodium (Colace) 200 mg PO [facility] Last Admin: 09/01/17 21:53 Dose: Not Given Gabapentin (Neurontin) 100 mg PO [facility] Last Admin: 09/01/17 21:53 Dose: Not Given Rosuvastatin Calcium (Crestor) 20 mg PO [facility] Last Admin: 09/01/17 21:53 Dose: Not Given - Labs Labs: 08/22/17 08:23 08/22/17 08:23 PT 13.2 SECONDS (9.7-12.2) H 08/14/17 14:37 INR 1.2 08/14/17 14:37 APTT 35 SECONDS (21-34) H 08/14/17 14:37 - Constitutional Appears: Well - Head Exam Head Exam: ATRAUMATIC, NORMAL INSPECTION, NORMOCEPHALIC - Eye Exam Eye Exam: EOMI, Normal appearance, PERRL Pupil Exam: NORMAL ACCOMODATION, PERRL - ENT Exam ENT Exam: Mucous Membranes Moist, Normal Exam - Neck Exam Neck Exam: Full ROM, Normal Inspection. absent: Lymphadenopathy - Respiratory Exam Respiratory Exam: Decreased Breath Sounds - Cardiovascular Exam Cardiovascular Exam: REGULAR RHYTHM, +S1, +S2 - GI/Abdominal Exam GI & Abdominal Exam: Soft, Diminished Bowel Sounds - Rectal Exam Rectal Exam: Deferred
--- NOTE | 2017-09-03 14:38 | CP.PCM.PN ---
Subjective - Date & Time of Evaluation Date of Evaluation: 09/03/17 Time of Evaluation: 07:00 - Subjective Subjective: clinically same Objective - Vital Signs/Intake and Output Vital Signs (last 24 hours): Temp Pulse Resp BP Pulse Ox 98.5 F 92 H 16 147/86 100 09/03/17 07:45 09/03/17 07:45 09/03/17 07:45 09/03/17 07:45 09/03/17 07:45 - Medications Medications: Current Medications Docusate Sodium (Colace) 200 mg PO [facility] Last Admin: 09/02/17 22:41 Dose: Not Given Gabapentin (Neurontin) 100 mg PO [facility] Last Admin: 09/02/17 22:41 Dose: Not Given Rosuvastatin Calcium (Crestor) 20 mg PO [facility] Last Admin: 09/02/17 22:41 Dose: Not Given - Labs Labs: 08/22/17 08:23 08/22/17 08:23 PT 13.2 SECONDS (9.7-12.2) H 08/14/17 14:37 INR 1.2 08/14/17 14:37 APTT 35 SECONDS (21-34) H 08/14/17 14:37 - Constitutional Appears: Well - Head Exam Head Exam: ATRAUMATIC, NORMAL INSPECTION, NORMOCEPHALIC - Eye Exam Eye Exam: EOMI, Normal appearance, PERRL Pupil Exam: NORMAL ACCOMODATION, PERRL - ENT Exam ENT Exam: Mucous Membranes Moist, Normal Exam - Neck Exam Neck Exam: Full ROM, Normal Inspection. absent: Lymphadenopathy - Respiratory Exam Respiratory Exam: Decreased Breath Sounds - Cardiovascular Exam Cardiovascular Exam: REGULAR RHYTHM, +S1, +S2 - GI/Abdominal Exam GI & Abdominal Exam: Soft, Diminished Bowel Sounds - Rectal Exam Rectal Exam: Deferred
--- NOTE | 2017-09-04 19:02 | CP.PCM.PN ---
Subjective - Date & Time of Evaluation Date of Evaluation: 09/04/17 Time of Evaluation: 07:00 - Subjective Subjective: clinically same Objective - Vital Signs/Intake and Output Vital Signs (last 24 hours): Temp Pulse Resp BP Pulse Ox 97.7 F 98 H 20 148/83 98 09/04/17 15:51 09/04/17 15:51 09/04/17 15:51 09/04/17 15:51 09/04/17 15:51 - Medications Medications: Current Medications Docusate Sodium (Colace) 200 mg PO [facility] Last Admin: 09/02/17 22:41 Dose: Not Given Gabapentin (Neurontin) 100 mg PO [facility] Last Admin: 09/02/17 22:41 Dose: Not Given Rosuvastatin Calcium (Crestor) 20 mg PO [facility] Last Admin: 09/02/17 22:41 Dose: Not Given - Labs Labs: 08/22/17 08:23 08/22/17 08:23 PT 13.2 SECONDS (9.7-12.2) H 08/14/17 14:37 INR 1.2 08/14/17 14:37 APTT 35 SECONDS (21-34) H 08/14/17 14:37 - Constitutional Appears: Well - Head Exam Head Exam: ATRAUMATIC, NORMAL INSPECTION, NORMOCEPHALIC - Eye Exam Eye Exam: EOMI, Normal appearance, PERRL Pupil Exam: NORMAL ACCOMODATION, PERRL - ENT Exam ENT Exam: Mucous Membranes Moist, Normal Exam - Neck Exam Neck Exam: Full ROM, Normal Inspection. absent: Lymphadenopathy - Respiratory Exam Respiratory Exam: Decreased Breath Sounds - Cardiovascular Exam Cardiovascular Exam: REGULAR RHYTHM, +S1, +S2 - GI/Abdominal Exam GI & Abdominal Exam: Soft, Diminished Bowel Sounds - Rectal Exam Rectal Exam: Deferred
--- NOTE | 2017-09-05 17:26 | CP.PCM.PN ---
Subjective - Date & Time of Evaluation Date of Evaluation: 09/05/17 Time of Evaluation: 07:00 - Subjective Subjective: clinically same Objective - Vital Signs/Intake and Output Vital Signs (last 24 hours): Temp Pulse Resp BP Pulse Ox 98.6 F 116 H 20 136/83 98 09/05/17 16:04 09/05/17 16:04 09/05/17 16:04 09/05/17 16:04 09/05/17 16:04 Intake and Output: 09/05/17 09/05/17 06:59 18:59 Intake Total 0 0 Output Total 0 0 Balance 0 0 - Medications Medications: Current Medications Docusate Sodium (Colace) 200 mg PO HS [facility] Last Admin: 09/02/17 22:41 Dose: Not Given Gabapentin (Neurontin) 100 mg PO HS [facility] Last Admin: 09/02/17 22:41 Dose: Not Given Rosuvastatin Calcium (Crestor) 20 mg PO HS [facility] Last Admin: 09/02/17 22:41 Dose: Not Given - Labs Labs: 08/22/17 08:23 08/22/17 08:23 PT 13.2 SECONDS (9.7-12.2) H 08/14/17 14:37 INR 1.2 08/14/17 14:37 APTT 35 SECONDS (21-34) H 08/14/17 14:37 - Constitutional Appears: Well - Head Exam Head Exam: ATRAUMATIC, NORMAL INSPECTION, NORMOCEPHALIC - ENT Exam ENT Exam: Mucous Membranes Moist, Normal Exam - Neck Exam Neck Exam: Full ROM, Normal Inspection. absent: Lymphadenopathy - Respiratory Exam Respiratory Exam: Decreased Breath Sounds - Cardiovascular Exam Cardiovascular Exam: REGULAR RHYTHM, +S1, +S2 - GI/Abdominal Exam GI & Abdominal Exam: Soft, Diminished Bowel Sounds - Rectal Exam Rectal Exam: Deferred
--- NOTE | 2017-09-06 19:20 | CP.PCM.PN ---
Subjective - Date & Time of Evaluation Date of Evaluation: 09/06/17 Time of Evaluation: 07:20 - Subjective Subjective: clinically same Objective - Vital Signs/Intake and Output Vital Signs (last 24 hours): Temp Pulse Resp BP Pulse Ox 97.7 F 107 H 20 127/79 99 09/06/17 16:00 09/06/17 16:00 09/06/17 16:00 09/06/17 16:00 09/06/17 16:00 Intake and Output: 09/06/17 09/07/17 18:59 06:59 Intake Total 0 Output Total 50 Balance -50 - Medications Medications: Current Medications Docusate Sodium (Colace) 200 mg PO [facility] Last Admin: 09/05/17 22:00 Dose: Not Given Gabapentin (Neurontin) 100 mg PO [facility] Last Admin: 09/05/17 23:38 Dose: Not Given Rosuvastatin Calcium (Crestor) 20 mg PO [facility] Last Admin: 09/05/17 22:00 Dose: Not Given - Labs Labs: 08/22/17 08:23 08/22/17 08:23 PT 13.2 SECONDS (9.7-12.2) H 08/14/17 14:37 INR 1.2 08/14/17 14:37 APTT 35 SECONDS (21-34) H 08/14/17 14:37 - Constitutional Appears: Non-toxic - Head Exam Head Exam: NORMAL INSPECTION - Eye Exam Eye Exam: Normal appearance - ENT Exam ENT Exam: Normal Exam - Neck Exam Neck Exam: Full ROM - Respiratory Exam Respiratory Exam: Decreased Breath Sounds - Cardiovascular Exam Cardiovascular Exam: REGULAR RHYTHM - GI/Abdominal Exam GI & Abdominal Exam: Diminished Bowel Sounds - Rectal Exam Rectal Exam: Deferred
[2017-09-07] MEDS: Nitroglycerin 2% Ointment Foilpak UD TOP SCH ×2 (11:16→17:06)
--- NOTE | 2017-09-07 20:09 | CP.PCM.PN ---
Subjective - Date & Time of Evaluation Date of Evaluation: 09/07/17 Time of Evaluation: 07:00 - Subjective Subjective: clinically same Objective - Vital Signs/Intake and Output Vital Signs (last 24 hours): Temp Pulse Resp BP Pulse Ox 98.0 F 136 H 20 84/58 L 91 L 09/07/17 16:00 09/07/17 16:00 09/07/17 16:00 09/07/17 16:00 09/07/17 16:00 Intake and Output: 09/07/17 09/08/17 18:59 06:59 Intake Total 0 Output Total 0 Balance 0 - Medications Medications: Current Medications Docusate Sodium (Colace) 200 mg PO [facility] Last Admin: 09/06/17 22:44 Dose: Not Given Gabapentin (Neurontin) 100 mg PO [facility] Last Admin: 09/06/17 22:45 Dose: Not Given Nitroglycerin (Nitro-Bid 2% Oint) 1 ea TOP Q6 [facility] Last Admin: 09/07/17 17:06 Dose: Not Given Rosuvastatin Calcium (Crestor) 20 mg PO [facility] Last Admin: 09/06/17 22:45 Dose: Not Given - Labs Labs: 08/22/17 08:23 08/22/17 08:23 PT 13.2 SECONDS (9.7-12.2) H 08/14/17 14:37 INR 1.2 08/14/17 14:37 APTT 35 SECONDS (21-34) H 08/14/17 14:37 - Constitutional Appears: Well - Head Exam Head Exam: ATRAUMATIC, NORMAL INSPECTION, NORMOCEPHALIC - Eye Exam Eye Exam: EOMI, Normal appearance, PERRL Pupil Exam: NORMAL ACCOMODATION, PERRL - ENT Exam ENT Exam: Mucous Membranes Moist, Normal Exam - Neck Exam Neck Exam: Full ROM, Normal Inspection. absent: Lymphadenopathy - Respiratory Exam Respiratory Exam: Decreased Breath Sounds - Cardiovascular Exam Cardiovascular Exam: REGULAR RHYTHM, +S1, +S2 - GI/Abdominal Exam GI & Abdominal Exam: Soft, Diminished Bowel Sounds - Rectal Exam Rectal Exam: Deferred
[2017-09-08] MEDS: Nitroglycerin 2% Ointment Foilpak UD TOP SCH ×2 (00:14→12:33)
[2017-09-08 16:03] VITALS: BP 47/28; PULSE 107; RESP 20; TEMP 98.3; O2SAT 85
== END 2017-09-08 17:54 | disposition hospice, inpatient (51) | DRG 871 ==
LOC: C.ER 13:43 → UNDOADMIN 15:35 → C.9E 15:35 → UNDOADMIN 19:49 → C.9E 19:49 → C.6T 21:23 → C.9E 21:23 → C.6T 08-16 14:31 → C.3T 09-01 22:23 → UNDODISIN 09-06 20:15 → C.3T 09-06 21:30
PROVIDERS: ADMIT Internal Medicine Nephrology; ATTEND Internal Medicine Nephrology
DX: A41.9 Sepsis, unspecified organism (principal); J18.9 Pneumonia, unspecified organism; J96.90 Respiratory failure, unspecified, unspecified whether with hypoxia or hypercapnia; C34.92 Malignant neoplasm of unspecified part of left bronchus or lung; R64 Cachexia; N39.0 Urinary tract infection, site not specified; J90 Pleural effusion, not elsewhere classified; J98.19 Other pulmonary collapse; Z68.1 Body mass index [BMI] 19.9 or less, adult; Z51.5 Encounter for palliative care; Z66 Do not resuscitate; R62.7 Adult failure to thrive; Z74.01 Bed confinement status; B96.20 Unspecified Escherichia coli [E. coli] as the cause of diseases classified elsewhere; N18.9 Chronic kidney disease, unspecified; I12.9 Hypertensive chronic kidney disease with stage 1 through stage 4 chronic kidney disease, or unspecified chronic kidney disease; I25.10 Atherosclerotic heart disease of native coronary artery without angina pectoris; M19.90 Unspecified osteoarthritis, unspecified site

== ENCOUNTER 2017-09-08 17:40 | Inpatient (IN) | payer OTHER ==
[2017-09-08 18:29] VITALS: BMI 17.6
[2017-09-08] MEDS ORDERED: Morphine Sulfate 250 MG in Dextrose 5% In Water 240 ML IV SCH (18:31)
--- NOTE | 2017-09-08 19:20 | CP.PCM.PRO ---
Pronouncement of Note - Clinical Findings Physical Exam: No Response Verbal/Painful Stimuli, Absent Peripheral Pulses{ Carotid & Femoral}, Absent Heart & Breath Sounds, No Pupillary Light Reflex, No Corneal Reflex, Pupils Fixed & Dilated, Absence of Vital Signs - Pronouncement Time Time of Pronouncement of : 18:57 - Notifications Pronouncement Notifications: Family Notified, Atending Notified Assistant Track Coach Notified: No - Autopsy Autopsy Requested: No - [place] [id number]
== END 2017-09-08 22:00 | DRG 951 ==
LOC: C.3T 17:40
PROVIDERS: ADMIT Internal Medicine Nephrology; ATTEND Internal Medicine Nephrology
DX: Z51.5 Encounter for palliative care (principal); J18.9 Pneumonia, unspecified organism; J96.90 Respiratory failure, unspecified, unspecified whether with hypoxia or hypercapnia; N39.0 Urinary tract infection, site not specified; Z68.1 Body mass index [BMI] 19.9 or less, adult; J90 Pleural effusion, not elsewhere classified; C34.92 Malignant neoplasm of unspecified part of left bronchus or lung; R64 Cachexia; R62.7 Adult failure to thrive; B96.20 Unspecified Escherichia coli [E. coli] as the cause of diseases classified elsewhere